=== PATIENT | male | born 1985 | race Caucasian/White ===

== ENCOUNTER 2017-02-13 22:28 | Inpatient (IN) | payer OTHER ==
[~2017-02-13] VITALS: Ht 185.4 cm; Wt 86.8 kg
[2017-02-13] MEDS ORDERED: SODIUM CHLORIDE 0.9% 1000ML 1,000 ML IV STA ×2 (22:41→23:04)
--- NOTE | 2017-02-13 22:48 | EMERGENCY ROOM VISIT NOTE ---
History Report prepared by Siomara: Maury Weiss Under the Supervision of: Dr. Alhaji Del Cid M.D. First contact with patient: 22:38 Chief Complaint: HYPERGLYCEMIA Stated Complaint: HYPERGYLCEMIA Nursing Triage Summary: pt arrives ALS from [facility]. pt with n/v all day today. did not eat. did not take insulin. BSG for [facility] 541. EMS BSG 444. pt medicated with 4mg IV Zofran by EMS. per eMar from [facility] pt is non compliant and refuses Insulin. History of Present Illness The patient is a 31 year old male who presents to the Emergency Room from senior living for evaluation of generalized weakness. Patient with history of DM, HTN , DLP. On insulin though reportedly by senior living he is non-compliant with taking it. Note DKA in Apr 2016 and admission to [facility]. Feeling well yesterday. Today with nausea, vomiting, body aches. Did not take medications today due to illness. Associated tachycardia, fatigue, weakness and diffuse abdominal cramping. Denies cp, sob, uti symptoms, leg swelling, rashes, headache, neck stiffness, vision changes. BSG by senior living >500. EMS transfer with NSS and Zofran prior to arrival. Patient notes nausea mildly better. Walking makes worse, rest makes better. Notes this is similar to previous DKA. Denies other medication use. Denies overdose. Denies attempt at harming self. Source of History: patient, other ([facility]) Onset: Today Position: other (global) Symptom Intensity: moderate Quality: other (Generalized Weakness) Timing: constant Modifying Factors (Worsening): movement Modifying Factors (Relieving): rest Associated Symptoms: + nausea, + vomiting, + abdominal pain, + fatigue, No headache, No neck pain, No chest pain, No SOB, No urinary symptoms, No rash Review of Systems See HPI for pertinent positives & negatives. A total of 10 systems reviewed and were otherwise negative. Past Medical & Surgical Medical Problems: (1) Diabetes (2) Dyslipidemia (3) HTN (hypertension) Family History Unable to obtain. Social History Smoking Status: Current Every Day Smoker Smokeless Tobacco Use: Unknown Housing Status: other (Incarcerated) Occupation Status: other (Incarcerated) Current/Historical Medications Scheduled Atorvastatin (Lipitor), 20 MG PO DAILY Duloxetine Hcl (Cymbalta), 20 MG PO DAILY Duloxetine Hcl (Cymbalta), 30 MG PO DAILY Insulin Human Regular (Humulin R), UNITS SQ AC Insulin Isophan/Regular (Humulin 70/30), 30 UNITS SQ QAM Insulin Isophan/Regular (Humulin 70/30), 20 UNITS SQ QPM Lisinopril (Prinivil), 10 MG PO DAILY [Glutose], 1-2 PO PRN Allergies Coded Allergies: Penicillins (Verified Allergy, Intermediate, childhood. unsure, 02/13/17) Physical Exam Vital Signs Date Time Temp Pulse Resp B/P (MAP) Pulse Ox O2 Delivery O2 Flow Rate FiO2 02/14/17 02:16 107 20 133/75 98 02/14/17 02:01 132/75 02/14/17 02:00 106 15 02/14/17 01:31 137/71 02/14/17 01:30 105 16 100 02/14/17 01:01 121/56 02/14/17 01:00 109 18 100 02/14/17 00:43 114 16 127/53 100 Room Air 02/14/17 00:05 100 20 116/50 96 Room Air 02/13/17 22:36 103 02/13/17 22:32 36.7 103 24 151/66 98 Room Air Physical Exam GENERAL: Patient is unwell appearing and in moderate distress. Dehydrated appearing. HEENT: No acute trauma, normocephalic atraumatic, mucous membranes DRY, no nasal congestion, no scleral icterus. NECK: No stridor, no adenopathy, no meningismus, trachea is midline. LUNGS: Tachypneic though not dyspneic. Clear to auscultation and equal bilaterally. No wheeze, no rhonchi. HEART: Tachycardic. No murmurs, rubs, gallops appreciated. ABDOMEN: Soft, nontender, bowel sounds positive, no masses appreciated, no peritonitis. BACK: No midline tenderness, no CVA tenderness EXTREMITIES: Normal motion all extremities, no cyanosis, no edema. NEUROLOGIC: Alert and oriented, no acute motor or sensory deficits, no focal weakness, cranial nerves grossly intact. SKIN: No rash, no jaundice, no diaphoresis. Medical Decision & Procedures ER Provider Diagnostic Interpretation: X ray results are stated below per my interpretation: Chest: 1 view: No infiltrate, no effusion, normal cardiac border. Laboratory Results 02/13/17 22:50 Red Blood Count 4.91, Mean Corpuscular Volume 89.2, Mean Corpuscular Hemoglobin 29.1, Mean Corpuscular Hemoglobin Concent 32.6, Mean Platelet Volume 10.9, Neutrophils (%) (Auto) 77.0, Lymphocytes (%) (Auto) 11.2, Monocytes (%) (Auto) 10.8, Eosinophils (%) (Auto) 0.3, Basophils (%) (Auto) 0.2, Neutrophils # (Auto ) 16.70, Lymphocytes # (Auto) 2.42, Monocytes # (Auto) 2.34, Eosinophils # (Auto ) 0.06, Basophils # (Auto) 0.04 02/13/17 22:50 Test 02/13/17 22:50 02/13/17 23:04 02/13/17 23:07 02/13/17 23:18 White Blood Count 21.66 K/uL (4.8-10.8) Red Blood Count 4.91 M/uL (4.7-6.1) Hemoglobin 14.3 g/dL (14.0-18.0) Hematocrit 43.8 % (42-52) Mean Corpuscular Volume 89.2 fL (80-100) Mean Corpuscular Hemoglobin 29.1 pg (25-34) Mean Corpuscular Hemoglobin Concent 32.6 g/dl (32-36) Platelet Count 275 K/uL (130-400) Mean Platelet Volume 10.9 fL (7.4-10.4) Neutrophils (%) (Auto) 77.0 % Lymphocytes (%) (Auto) 11.2 % Monocytes (%) (Auto) 10.8 % Eosinophils (%) (Auto) 0.3 % Basophils (%) (Auto) 0.2 % Neutrophils # (Auto) 16.70 K/uL (1.4-6.5) Lymphocytes # (Auto) 2.42 K/uL (1.2-3.4) Monocytes # (Auto) 2.34 K/uL (0.11-0.59) Eosinophils # (Auto) 0.06 K/uL (0-0.5) Basophils # (Auto) 0.04 K/uL (0-0.2) RDW Standard Deviation 43.7 fL (36.4-46.3) RDW Coefficient of Variation 13.5 % (11.5-14.5) Immature Granulocyte % (Auto) 0.5 % Immature Granulocyte # (Auto) 0.10 K/uL (0.00-0.02) Toxic Vacuolation 1+ Echinocytes 1+ Prothrombin Time 10.3 SECONDS (9.0-12.0) Prothromb Time International Ratio 1.0 (0.9-1.1) Activated Partial Thromboplast Time 22.9 SECONDS (21.0-31.0) Partial Thromboplastin Ratio 0.9 Est Creatinine Clear Calc Drug Dose 71.8 ml/min Estimated GFR () 61.4 Estimated GFR (Non- 52.9 BUN/Creatinine Ratio 14.6 (10-20) Calcium Level 9.6 mg/dl (8.5-10.1) Phosphorus Level 5.4 mg/dl (2.5-4.9) Magnesium Level 2.0 mg/dl (1.8-2.4) Total Bilirubin 2.4 mg/dl (0.2-1) Direct Bilirubin 0.6 mg/dl (0-0.2) Aspartate Amino Transf (AST/SGOT) 48 U/L (15-37) Alanine Aminotransferase (ALT/SGPT) 123 U/L (12-78) Alkaline Phosphatase 99 U/L (45-117) Total Creatine Kinase 173 U/L (39-308) Creatine Kinase MB 3.8 ng/ml (0.5-3.6) Creatine Kinase MB Ratio 2.2 (0-3.0) Troponin I < 0.015 ng/ml (0-0.045) Total Protein 8.0 gm/dl (6.4-8.2) Albumin 4.5 gm/dl (3.4-5.0) Lipase 205 U/L (73-393) Beta-Hydroxybutyric Acid 63.02 mg/dL (0.2-2.81) Bedside Lactic Acid Venous 8.91 mmol/L (0.90-1.70) Bedside Hemoglobin 15.6 g/dl (14.0-18.0) Bedside Hematocrit 46 % (42-52) Bedside Sodium 135 mEq/L (135-144) Bedside Potassium 4.8 mEq/L (3.3-5.0) Bedside Chloride 97 mEq/L (101-112) Bedside Total CO2 15 mEq/l (24-31) Anion Gap 28.0 mmol/L (16-25) Bedside Blood Urea Nitrogen 25 mg/dl (7-18) Bedside Creatinine 1.0 mg/dl (0.6-1.3) Bedside Glucose (other) 539 mg/dl (70-99) Bedside Ionized Calcium (Jose) 1.16 mmol/l (1.12-1.32) Arterial Blood pH 7.27 (7.35-7.45) Arterial Blood Partial Pressure CO2 26 mmHg (35-46) Arterial Blood Partial Pressure O2 74 mm/Hg (80-95) Arterial Blood HCO3 12 mmol/L (19-24) Arterial Blood Oxygen Saturation 93.8 % (90-95) Arterial Blood Base Excess -13.3 mEq/L (-9-1.8) Arterial Blood Gas Delivery RA Liborio Test POS (POS) Test 02/14/17 02:03 02/14/17 02:20 Bedside Glucose 485 mg/dl (70-99) Urine Color YELLOW Urine Appearance CLEAR (CLEAR) Urine pH 5.0 (4.5-7.5) Urine Specific [place] 1.029 (1.000-1.030) Urine Protein TRACE (NEG) Urine Glucose (UA) 3+ (NEG) Urine Ketones 3+ (NEG) Urine Occult Blood TRACE (NEG) Urine Nitrite NEG (NEG) Urine Bilirubin NEG (NEG) Urine Urobilinogen NEG (NEG) Urine Leukocyte Esterase NEG (NEG) Urine WBC (Auto) 1-5 /hpf (0-5) Urine RBC (Auto) 0-4 /hpf (0-4) Urine Hyaline Casts (Auto) 1-5 /lpf (0-5) Urine Epithelial Cells (Auto) 5-10 /lpf (0-5) Urine Bacteria (Auto) NEG (NEG) Laboratory results as reviewed by me. Medications Administered Medications (Trade) Dose Ordered Sig/Madai Route Start Time Stop Time Status Last Admin Dose Admin Sodium Chloride 1,000 ml @ 999 mls/hr Q1H1M STAT IV 02/13/17 22:41 02/13/17 23:41 DC 02/13/17 23:02 999 MLS/HR Ondansetron HCl (Zofran Inj) 4 mg NOW STAT IV 02/13/17 22:58 02/13/17 22:59 DC 02/13/17 23:02 4 MG Sodium Chloride 1,000 ml @ 999 mls/hr Q1H1M STAT IV 02/13/17 23:04 02/14/17 00:04 DC 02/14/17 00:03 999 MLS/HR Morphine Sulfate (MoRPHine SULFATE INJ) 4 mg NOW STAT IV 02/13/17 23:25 02/13/17 23:26 DC 02/13/17 23:58 4 MG Insulin Human Regular 2 unit/ Syringe 2 ml @ 1 mls/min TODAY@0000 IV 02/14/17 00:00 02/14/17 00:01 DC 02/13/17 23:59 1 MLS/MIN Insulin Human Regular 250 units/ Sodium Chloride 252.5 ml @ 0 mls/hr DAILY@1130 IV 02/13/17 00:00 02/14/17 11:29 02/14/17 02:09 3.5 MLS/HR Promethazine HCl 25 mg/Sodium Chloride 51 ml @ 204 mls/hr NOW STAT IV 02/14/17 00:03 02/14/17 00:17 DC 02/14/17 00:21 204 MLS/HR Sodium Chloride 1,000 ml @ 200 mls/hr Q5H STAT IV 02/14/17 01:26 02/14/17 06:25 02/14/17 01:29 200 MLS/HR Sodium Chloride 1,000 ml @ 999 mls/hr Q1H1M STAT IV 02/14/17 01:39 02/14/17 01:52 DC 02/14/17 01:44 999 MLS/HR ECG Indication: other (Hyperglycemia) Rate (beats per minute): 105 Rhythm: sinus tachycardia Findings: no acute ischemic change, no ectopy, other (QTC of 457) ED Course 2238: The patient was evaluated in room C4. A complete history and physical exam was performed. 2241: Ordered Sodium Chloride 1000 ml @ 999 mls/hr IV 2258: Ordered Zofran Inj 4 mg IV 2304: Ordered Sodium Chloride 1000 ml @ 999 mls/hr IV 2321: Upon reevaluation, the patient is experiencing whole body pain. I will order him something for the pain. I discussed with the nursing staff his need for an insulin drip and fluids. Discussed results and treatment plan with the patient. He verbalized understanding and agreement with the treatment plan. The patient will be evaluated for further management by Dr. Jermaine DELONG. Ordered Insulin Human Regular 1 ea. 2325: Ordered Morphine Sulfate 4 mg IV 0003: The patient is still nauseated. He has been given Phenergan. His insulin drip has started. Medical Decision Differential: DKA, Sepsis, Infectious (UTI/Pneumonia/Meningitis/etc), Metabolic/ Electrolyte Abnormality, Cardiac, Hepatic, Endocrine, Toxicologic, Neurologic, amongst other pathologies entertained. Medication Reconciliation: I attest that I have personally reviewed the patient 's current medication list. Blood pressure screening: Patient was found to have an elevated blood pressure and was referred to their primary doctor for recheck and further treatment. 31 yr old non-compliant male arrives for evaluation of elevated blood sugar. Quite dehydrated by examination and consistent with DKA. Moderate acidosis. WBC elevated consistent with DKA. Blood cultures obtained but I do not feel this is sepsis and thus will hold off on abx at this time. Zofran, Phenergan, Morphine for nausea/discomfort. Fluids with insulin gtt started. Patient stable with just mild tachy. Consults Time Called: 2314 Consulting Physician: Dr. Jermaine DELONG Returned Call: 2320 He will be evaluating the patient for further management and care. Impression Primary Impression: DKA (diabetic ketoacidoses) Additional Impressions: Intractable vomiting Dehydration Scribe Attestation The scribe's documentation has been prepared under my direction and personally reviewed by me in its entirety. I confirm that the note above accurately reflects all work, treatment, procedures, and medical decision making performed by me. Departure Information Dispostion Being Evaluated By Hospitalist Patient Instructions My [facility] Problem Qualifiers
[2017-02-13] MEDS ORDERED: ONDANSETRON INJ 2 MG/ML 2 ML VIAL IV STA (22:58)
[2017-02-13 23:03] LABS: HEMATOCRIT 43.8 % (42-52); MEAN CELL VOLUME 89.2 fL (80-100); MEAN CORPUSCULAR HEMOGLOBIN 29.1 pg (25-34); MEAN CORPUSCULAR HGB CONC 32.6 g/dl (32-36); MEAN PLATELET VOLUME 10.9 fL (7.4-10.4); PLATELET COUNT 275 K/uL (130-400); RED BLOOD COUNT 4.91 M/uL (4.7-6.1); WHITE BLOOD COUNT 21.66 K/uL (4.8-10.8)
[2017-02-13 23:18] LABS: ISTAT HEMOGLOBIN 15.6 g/dl (14.0-18.0); ISTAT IONIZED CALCIUM 1.16 mmol/l (1.12-1.32)
[2017-02-13] MEDS ORDERED: INSULIN IV INFUSION PROTOCOL STA (23:21)
[2017-02-13] MEDS ORDERED: MoRPHine SULFATE 4 MG/ML 1 ML CARP\\VIAL IV STA (23:25)
[2017-02-13 23:27] LABS: PARTIAL THROMBOPLASTIN RATIO 0.9; PROTHROMBIN TIME (PATIENT) 10.3 SECONDS (9.0-12.0)
[2017-02-13] MEDS ORDERED: DKA GOAL RANGE 150-250 mg/dl 1 EA ONE (23:30)
[2017-02-13] MEDS ORDERED: MODERATE STRESS LEVEL ONE (23:30)
[2017-02-13 23:31] LABS: ARTERIAL BLD GAS O2 SATURATION 93.8 % (90-95); ARTERIAL BLOOD GAS BASE EXCESS -13.3 mEq/L (-9-1.8); ARTERIAL BLOOD GAS HCO3 12 mmol/L (19-24); ARTERIAL BLOOD GAS PO2 74 mm/Hg (80-95); ARTERIAL BLOOD GAS pH 7.27 (7.35-7.45)
[2017-02-13 23:33] LABS: ALKALINE PHOSPHATASE 99 U/L (45-117); ALT/SGPT 123 U/L (12-78); AST/SGOT 48 U/L (15-37); BLOOD UREA NITROGEN 25 mg/dl (7-18); BUN/CREATININE RATIO 14.6 (10-20); CALCIUM 9.6 mg/dl (8.5-10.1); CARBON DIOXIDE 14 mmol/L (21-32); CHLORIDE 95 mmol/L (98-107); CKMB/CK RATIO 2.2 (0-3.0); GLUCOSE 508 mg/dl (70-99); PHOSPHORUS 5.4 mg/dl (2.5-4.9); POTASSIUM 4.9 mmol/L (3.5-5.1); SODIUM 134 mmol/L (136-145)
[2017-02-13 23:39] LABS: BASO % 0.2 %; BASO ABS # 0.04 K/uL (0-0.2); COMPLETE YES; ECHINOCYTES 1+; EOS % 0.3 %; IG% 0.5 %; LYMPH % 11.2 %; LYMPH ABS # 2.42 K/uL (1.2-3.4); MONO % 10.8 %; VACUOLIZATION 1+
[2017-02-13] MEDS ORDERED: ATOR-22 PO (23:41)
[2017-02-13] MEDS ORDERED: DULO-24 PO (23:43)
[2017-02-13] MEDS ORDERED: GLUCOSE 40% GEL 15 GM TUBE PO PRN (23:45)
[2017-02-13] MEDS ORDERED: DEXTROSE 50% 50 ML SYR IV PRN (23:45)
[2017-02-13] MEDS ORDERED: GLUCOSE 10 TABS/TUBE PO PRN (23:45)
[2017-02-13] MEDS ORDERED: GLUCAGON FOR INJ 1 MG VIAL SQ PRN (23:45)
[2017-02-13] MEDS ORDERED: CYM/30 PO (23:47)
[2017-02-13] MEDS ORDERED: GLUTOSE PO (23:49)
[2017-02-13] MEDS ORDERED: LISI10TA PO (23:54)
[2017-02-13] MEDS ORDERED: INSU1INJ SQ ×2 (23:55→23:57)
[2017-02-13 23:57] LABS: ALLEN TEST POS (POS); O2 ADMINISTRATION RA
[2017-02-13 23:58] LABS: BETA-HYDROXYBUTYRATE 63.02 mg/dL (0.2-2.81)
[2017-02-14] MEDS ORDERED: INSHRIE SQ
[2017-02-14] MEDS ORDERED: INSULIN HUMAN REGULAR IV BOLUS 2 UNIT in SYRINGE 0 ML IV SCH
[2017-02-14] MEDS ORDERED: HYDROCODONE/HOMATROPINE SYRUP 5MG/1.5MG 5ML UDP PO STA (00:02)
[2017-02-14] MEDS ORDERED: PROMETHAZINE HCL INJ 25 MG in SODIUM CHLORIDE 0.9% 50ML 50 ML IV STA (00:03)
--- NOTE | 2017-02-14 00:24 | Critical Care Consultation ---
Critical Care Consultation Date of Consultation: Feb 14, 2017. Attending Physician: Reason for Consultation: Entered in ERROR Social History Smoking Status: Current Every Day Smoker Smokeless Tobacco Use: Unknown Housing Status: other (Incarcerated) Occupation Status: other (Incarcerated) Allergies Coded Allergies: Penicillins (Verified Allergy, Intermediate, childhood. unsure, 02/13/17) Home Medications Scheduled Atorvastatin (Lipitor), 20 MG PO DAILY Duloxetine Hcl (Cymbalta), 20 MG PO DAILY Duloxetine Hcl (Cymbalta), 30 MG PO DAILY Insulin Human Regular (Humulin R), UNITS SQ AC Insulin Isophan/Regular (Humulin 70/30), 30 UNITS SQ QAM Insulin Isophan/Regular (Humulin 70/30), 20 UNITS SQ QPM Lisinopril (Prinivil), 10 MG PO DAILY [Glutose], 1-2 PO PRN Current Inpatient Medications Current Inpatient Medications Medications (Trade) Dose Ordered Sig/Madai Route Start Time Stop Time Status Last Admin Dose Admin Insulin Human Regular 250 units/ Sodium Chloride 252.5 ml @ 0 mls/hr DAILY@1130 IV 02/13/17 00:00 02/14/17 11:29 02/14/17 00:00 2.1 MLS/HR Insulin Aspart (novoLOG ASPART) [facility] 02/14/17 09:00 03/16/17 08:59 Glucose (Glucose 40% Gel) UD PRN PO 02/13/17 23:45 03/15/17 23:44 Glucose (Glucose Chew Tab) 1 tabs UD PRN PO 02/13/17 23:45 03/15/17 23:44 Dextrose (Dextrose 50% 50ML Syringe) 50 ml UD PRN IV 02/13/17 23:45 03/15/17 23:44 Glucagon (Glucagon Inj) 1 mg UD PRN SQ 02/13/17 23:45 03/15/17 23:44 Physical Exam Date Time Temp Pulse Resp B/P (MAP) Pulse Ox O2 Delivery O2 Flow Rate FiO2 02/14/17 00:05 100 20 116/50 96 Room Air 02/13/17 22:36 103 02/13/17 22:32 36.7 103 24 151/66 98 Room Air Laboratory Results Last 24 Hours Test 02/13/17 22:50 02/13/17 23:04 02/13/17 23:07 02/13/17 23:18 White Blood Count 21.66 K/uL Red Blood Count 4.91 M/uL Hemoglobin 14.3 g/dL Hematocrit 43.8 % Mean Corpuscular Volume 89.2 fL Mean Corpuscular Hemoglobin 29.1 pg Mean Corpuscular Hemoglobin Concent 32.6 g/dl Platelet Count 275 K/uL Mean Platelet Volume 10.9 fL Neutrophils (%) (Auto) 77.0 % Lymphocytes (%) (Auto) 11.2 % Monocytes (%) (Auto) 10.8 % Eosinophils (%) (Auto) 0.3 % Basophils (%) (Auto) 0.2 % Neutrophils # (Auto) 16.70 K/uL Lymphocytes # (Auto) 2.42 K/uL Monocytes # (Auto) 2.34 K/uL Eosinophils # (Auto) 0.06 K/uL Basophils # (Auto) 0.04 K/uL RDW Standard Deviation 43.7 fL RDW Coefficient of Variation 13.5 % Immature Granulocyte % (Auto) 0.5 % Immature Granulocyte # (Auto) 0.10 K/uL Toxic Vacuolation 1+ Echinocytes 1+ Prothrombin Time 10.3 SECONDS Prothromb Time International Ratio 1.0 Activated Partial Thromboplast Time 22.9 SECONDS Partial Thromboplastin Ratio 0.9 Sodium Level 134 mmol/L Potassium Level 4.9 mmol/L Chloride Level 95 mmol/L Carbon Dioxide Level 14 mmol/L Anion Gap 25.0 mmol/L 28.0 mmol/L Blood Urea Nitrogen 25 mg/dl Creatinine 1.70 mg/dl Est Creatinine Clear Calc Drug Dose 71.8 ml/min Estimated GFR () 61.4 Estimated GFR (Non- 52.9 BUN/Creatinine Ratio 14.6 Random Glucose 508 mg/dl Calcium Level 9.6 mg/dl Phosphorus Level 5.4 mg/dl Magnesium Level 2.0 mg/dl Total Bilirubin 2.4 mg/dl Direct Bilirubin 0.6 mg/dl Aspartate Amino Transf (AST/SGOT) 48 U/L Alanine Aminotransferase (ALT/SGPT) 123 U/L Alkaline Phosphatase 99 U/L Total Creatine Kinase 173 U/L Creatine Kinase MB 3.8 ng/ml Creatine Kinase MB Ratio 2.2 Troponin I < 0.015 ng/ml Total Protein 8.0 gm/dl Albumin 4.5 gm/dl Lipase 205 U/L Beta-Hydroxybutyric Acid 63.02 mg/dL Bedside Lactic Acid Venous 8.91 mmol/L Bedside Hemoglobin 15.6 g/dl Bedside Hematocrit 46 % Bedside Sodium 135 mEq/L Bedside Potassium 4.8 mEq/L Bedside Chloride 97 mEq/L Bedside Total CO2 15 mEq/l Bedside Blood Urea Nitrogen 25 mg/dl Bedside Creatinine 1.0 mg/dl Bedside Glucose (other) 539 mg/dl Bedside Ionized Calcium (Jose) 1.16 mmol/l Arterial Blood pH 7.27 Arterial Blood Partial Pressure CO2 26 mmHg Arterial Blood Partial Pressure O2 74 mm/Hg Arterial Blood HCO3 12 mmol/L Arterial Blood Oxygen Saturation 93.8 % Arterial Blood Base Excess -13.3 mEq/L Arterial Blood Gas Delivery RA Liborio Test POS
[2017-02-14] MEDS: INSULIN REGULAR 250 UNITS in SODIUM CHLORIDE 0.9% 250ML 250 ML IV SCH ×4 (01:08→02:09)
[2017-02-14] MEDS ORDERED: SODIUM CHLORIDE 0.9% 1000ML 1,000 ML IV STA ×2 (01:26→01:39)
[2017-02-14] MEDS ORDERED: INSULIN IV INFUSION PROTOCOL STA (01:49)
[2017-02-14] MEDS ORDERED: ONDANSETRON INJ 2 MG/ML 2 ML VIAL IV PRN (02:00)
[2017-02-14] MEDS ORDERED: DC ALL PREVIOUSLY ORDERED DIABETES MEDS ONE (02:00)
[2017-02-14] MEDS ORDERED: DKA GOAL RANGE 150-250 mg/dl 1 EA ONE (02:00)
[2017-02-14] MEDS ORDERED: MAGNESIUM HYDROXIDE SUSP 30 ML UDC PO PRN (02:00)
[2017-02-14] MEDS ORDERED: ACETAMINOPHEN 325 MG TAB PO PRN (02:00)
[2017-02-14] MEDS ORDERED: PHARMACY GLYCEMIC MGMT CONSULT PRN (02:00)
[2017-02-14] MEDS ORDERED: POLYETHYLENE (MIRALAX) 17 GM PACK PO PRN (02:00)
[2017-02-14] MEDS ORDERED: ALUMINUM/MAGNESIUM/SIMETH (MAALOX MAX) 30 ML UDC PO PRN (02:00)
[2017-02-14] MEDS ORDERED: ZOLPIDEM TARTRATE 5 MG TAB PO PRN (02:00)
[2017-02-14 02:25] VITALS: BP 128/70; PULSE 109; TEMP 36.7; O2SAT 98; Ht 185.4 cm; Wt 86.8 kg
[2017-02-14 02:29] LABS: URINE APPEARANCE CLEAR (CLEAR); URINE BILIRUBIN NEG (NEG); URINE COLOR YELLOW; URINE NITRITE NEG (NEG); URINE SPECIFIC GRAVITY 1.029 (1.000-1.030); UROBILINOGEN NEG (NEG); ZZUR CULT IF INDIC CLEAN CATCH NO
[2017-02-14 02:30] LABS: MANUAL MICROSCOPIC REQUIRED? NO; REVIEW REQ? NO
[2017-02-14] MEDS ORDERED: SODIUM CHLORIDE 0.9% 1000ML 1,000 ML IV SCH (03:00)
[2017-02-14] MEDS ORDERED: KETOROLAC TROMETHAMINE 30 MG/ML VIAL IV PRN (03:00)
--- NOTE | 2017-02-14 03:09 | History and Physical ---
History & Physical Date & Time of Service: Feb 14, 2017 at 02:58 Chief Complaint: DKA Primary Care Physician: Praveena RUIZ History of Present Illness Source: patient 31 y/o M Hx DM1, HTN, HPL - presents from a local [facility] with abdominal pain, nausea and vomiting. Initial labs are consistent with mild DKA and ASHLEY. Pt also complains of muscle aches/pains and cramping. Denies CP, SOB, fevers. He does state that at one point he thought his vomit had a red tint but was unsure if this was blood. As an aside, the pt states that he feels a lump on his R neck and had mentioned this to the care home MD as his mother had a history of thyroid CA. He has not yet been worked up and finds this to be stressful. Past Medical/Surgical History Medical Problems: (1) Diabetes Status: Chronic (2) Dyslipidemia Status: Chronic (3) HTN (hypertension) Status: Chronic Family History Father had an UT at age 36 - mother has a history of thyroid CA. Social History Smoking Status: Current Every Day Smoker Smokeless Tobacco Use: Unknown Occupational Status: other (Incarcerated) Allergies Coded Allergies: Penicillins (Verified Allergy, Intermediate, childhood. unsure, 02/13/17) Home Medications Scheduled Atorvastatin (Lipitor), 20 MG PO DAILY Duloxetine Hcl (Cymbalta), 20 MG PO DAILY Duloxetine Hcl (Cymbalta), 30 MG PO DAILY Insulin Human Regular (Humulin R), UNITS SQ AC Insulin Isophan/Regular (Humulin 70/30), 30 UNITS SQ QAM Insulin Isophan/Regular (Humulin 70/30), 20 UNITS SQ QPM Lisinopril (Prinivil), 10 MG PO DAILY [Glutose], 1-2 PO PRN Review of Systems Constitutional: No fever, No chills, No sweats Eyes: No worsening of vision ENT: No hearing loss, No unusual epistaxis, No nasal symptoms Respiratory: No cough Cardiovascular: No chest pain, No orthopnea, No PND Abdomen: + pain, + nausea, + vomiting Musculoskeletal: No joint pain Genitourinary - Male: No hematuria Neurologic: No memory loss, No paralysis, No weakness Psychiatric: No depression symptoms Endocrine: No fatigue Hematologic / Lymphatic: No abnormal bleeding/bruising Integumentary: No rash Allergic / Immunologic: No environmental allergies Physical Exam Vital Signs Date Time Temp Pulse Resp B/P (MAP) Pulse Ox O2 Delivery O2 Flow Rate FiO2 02/14/17 02:16 107 20 133/75 98 02/14/17 02:01 132/75 02/14/17 02:00 106 15 02/14/17 01:31 137/71 02/14/17 01:30 105 16 100 02/14/17 01:01 121/56 02/14/17 01:00 109 18 100 02/14/17 00:43 114 16 127/53 100 Room Air 02/14/17 00:05 100 20 116/50 96 Room Air 02/13/17 22:36 103 02/13/17 22:32 36.7 103 24 151/66 98 Room Air General Appearance: WD/WN, no apparent distress Head: normocephalic Eyes: normal inspection, EOMI ENT: normal ENT inspection, pharynx normal, + pertinent finding (May have a small lump on his R neck close to mandibular angle ) Neck: supple, no JVD Respiratory/Chest: chest non-tender, lungs clear, normal breath sounds Cardiovascular: regular rate, rhythm, no edema, no gallop, no JVD, no murmur, normal peripheral pulses Abdomen/GI: normal bowel sounds, non tender, soft Back: normal inspection, no CVA tenderness, no muscle spasm, normal range of motion Extremities/Musculoskelatal: normal inspection, no calf tenderness, normal capillary refill 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, no motor/sensory deficits, alert Skin: normal color, warm/dry, no rash Diagnostics Laboratory Results Results Past 24 Hours Test 02/13/17 22:50 02/13/17 23:04 02/13/17 23:07 02/13/17 23:18 Range/Units White Blood Count 21.66 4.8-10.8 K/uL Red Blood Count 4.91 4.7-6.1 M/uL Hemoglobin 14.3 14.0-18.0 g/dL Hematocrit 43.8 42-52 % Mean Corpuscular Volume 89.2 80-100 fL Mean Corpuscular Hemoglobin 29.1 25-34 pg Mean Corpuscular Hemoglobin Concent 32.6 32-36 g/dl Platelet Count 275 130-400 K/uL Mean Platelet Volume 10.9 7.4-10.4 fL Neutrophils (%) (Auto) 77.0 % Lymphocytes (%) (Auto) 11.2 % Monocytes (%) (Auto) 10.8 % Eosinophils (%) (Auto) 0.3 % Basophils (%) (Auto) 0.2 % Neutrophils # (Auto) 16.70 1.4-6.5 K/uL Lymphocytes # (Auto) 2.42 1.2-3.4 K/uL Monocytes # (Auto) 2.34 0.11-0.59 K/uL Eosinophils # (Auto) 0.06 0-0.5 K/uL Basophils # (Auto) 0.04 0-0.2 K/uL RDW Standard Deviation 43.7 36.4-46.3 fL RDW Coefficient of Variation 13.5 11.5-14.5 % Immature Granulocyte % (Auto) 0.5 % Immature Granulocyte # (Auto) 0.10 0.00-0.02 K/uL Toxic Vacuolation 1+ Echinocytes 1+ Prothrombin Time 10.3 9.0-12.0 SECONDS Prothromb Time International Ratio 1.0 0.9-1.1 Activated Partial Thromboplast Time 22.9 21.0-31.0 SECONDS Partial Thromboplastin Ratio 0.9 Sodium Level 134 136-145 mmol/L Potassium Level 4.9 3.5-5.1 mmol/L Chloride Level 95 98-107 mmol/L Carbon Dioxide Level 14 21-32 mmol/L Anion Gap 25.0 28.0 16-25 mmol/L Blood Urea Nitrogen 25 7-18 mg/dl Creatinine 1.70 0.60-1.40 mg/dl Est Creatinine Clear Calc Drug Dose 71.8 ml/min Estimated GFR () 61.4 Estimated GFR (Non- 52.9 BUN/Creatinine Ratio 14.6 10-20 Random Glucose 508 70-99 mg/dl Calcium Level 9.6 8.5-10.1 mg/dl Phosphorus Level 5.4 2.5-4.9 mg/dl Magnesium Level 2.0 1.8-2.4 mg/dl Total Bilirubin 2.4 0.2-1 mg/dl Direct Bilirubin 0.6 0-0.2 mg/dl Aspartate Amino Transf (AST/SGOT) 48 15-37 U/L Alanine Aminotransferase (ALT/SGPT) 123 12-78 U/L Alkaline Phosphatase 99 45-117 U/L Total Creatine Kinase 173 39-308 U/L Creatine Kinase MB 3.8 0.5-3.6 ng/ml Creatine Kinase MB Ratio 2.2 0-3.0 Troponin I < 0.015 0-0.045 ng/ml Total Protein 8.0 6.4-8.2 gm/dl Albumin 4.5 3.4-5.0 gm/dl Lipase 205 73-393 U/L Beta-Hydroxybutyric Acid 63.02 0.2-2.81 mg/dL Bedside Lactic Acid Venous 8.91 0.90-1.70 mmol/L Bedside Hemoglobin 15.6 14.0-18.0 g/dl Bedside Hematocrit 46 42-52 % Bedside Sodium 135 135-144 mEq/L Bedside Potassium 4.8 3.3-5.0 mEq/L Bedside Chloride 97 101-112 mEq/L Bedside Total CO2 15 24-31 mEq/l Bedside Blood Urea Nitrogen 25 7-18 mg/dl Bedside Creatinine 1.0 0.6-1.3 mg/dl Bedside Glucose (other) 539 70-99 mg/dl Bedside Ionized Calcium (Jose) 1.16 1.12-1.32 mmol/l Arterial Blood pH 7.27 7.35-7.45 Arterial Blood Partial Pressure CO2 26 35-46 mmHg Arterial Blood Partial Pressure O2 74 80-95 mm/Hg Arterial Blood HCO3 12 19-24 mmol/L Arterial Blood Oxygen Saturation 93.8 90-95 % Arterial Blood Base Excess -13.3 -9-1.8 mEq/L Arterial Blood Gas Delivery RA Liborio Test POS POS Test 02/14/17 01:02 02/14/17 02:03 02/14/17 02:20 Range/Units Bedside Glucose 469 485 70-99 mg/dl Urine Color YELLOW Urine Appearance CLEAR CLEAR Urine pH 5.0 4.5-7.5 Urine Specific [place] 1.029 1.000-1.030 Urine Protein TRACE NEG Urine Glucose (UA) 3+ NEG Urine Ketones 3+ NEG Urine Occult Blood TRACE NEG Urine Nitrite NEG NEG Urine Bilirubin NEG NEG Urine Urobilinogen NEG NEG Urine Leukocyte Esterase NEG NEG Urine WBC (Auto) 1-5 0-5 /hpf Urine RBC (Auto) 0-4 0-4 /hpf Urine Hyaline Casts (Auto) 1-5 0-5 /lpf Urine Epithelial Cells (Auto) 5-10 0-5 /lpf Urine Bacteria (Auto) NEG NEG Microbiology Results 02/13/17 Blood Culture, Received Pending 02/13/17 Blood Culture, Received Pending Impression Assessment and Plan 31 y/o M Hx DM1, HTN, HPL - presents from a local [facility] with abdominal pain, nausea and vomiting. Initial labs are consistent with mild DKA and ASHLEY. Pt also complains of muscle aches/pains and cramping. Denies CP, SOB, fevers. He does state that at one point he thought his vomit had a red tint but was unsure if this was blood. As an aside, the pt states that he feels a lump on his R neck and had mentioned this to the care home MD as his mother had a history of thyroid CA. He has not yet been worked up and finds this to be stressful. 1) DKA - admitted with DKA protocol - Insulin drip, IVF, electrolytes Q4H - Antiemetics and analgesics PRN 2) ASHLEY - likely prerenal - aggressive IVF - recheck BMP AM 3) HTN - cont Lisinopril 4) HPL - cont Statin Tx 5) Neck lump - would defer to outpt workup Full code - SCDs - he may have had hematemesis earlier though this is not clear - we would administer heparin if his stay is extended and vomiting has resolved Total time for this admit including review of labs, meds, records - discussion with pt and ER attending - 38 min Level of Care Telemetry Resuscitation Status FULL RESUSCITATION VTE Prophylaxis VTE Risk Assessment Done? Y/N: Yes Risk Level: Very Low Given or contraindicated: Unfractionated heparin SQ
[2017-02-14] MEDS: MoRPHine SULFATE 2 MG/ML CARP IV PRN ×5 (03:25→22:20)
[2017-02-14] MEDS ORDERED: GLUCOSE 40% GEL 15 GM TUBE PO PRN (03:45)
[2017-02-14] MEDS ORDERED: GLUCOSE 10 TABS/TUBE PO PRN (03:45)
[2017-02-14] MEDS ORDERED: DEXTROSE 50% 50 ML SYR IV PRN (03:45)
[2017-02-14] MEDS ORDERED: GLUCAGON FOR INJ 1 MG VIAL SQ PRN (03:45)
[2017-02-14 04:00] VITALS: PULSE 99; O2SAT 98
[2017-02-14] MEDS ORDERED: PENDING NSS+20mEq KCL IVF SCH (04:00)
[2017-02-14] MEDS ORDERED: PENDING D5NS+20mEq KCL IVF SCH (04:00)
[2017-02-14 04:27] LABS: BUN/CREATININE RATIO 15.8 (10-20); CALCIUM 8.5 mg/dl (8.5-10.1); CREATININE 1.4 mg/dl (0.60-1.40); POTASSIUM 3.9 mmol/L (3.5-5.1)
[2017-02-14 04:57] LABS: BETA-HYDROXYBUTYRATE 48.23 mg/dL (0.2-2.81)
[2017-02-14] MEDS ORDERED: NURSING VERBAL MED ORDER ONE ×3 (06:00→17:00)
[2017-02-14] MEDS: HEPARIN SOD 5000 UNIT/0.5 ML CARP SQ SCH ×3 (06:05→20:42)
[2017-02-14] MEDS: D5NSS + 20MEQ KCL 1,000 ML IV SCH ×2 (06:33→11:30)
--- NOTE | 2017-02-14 06:37 | DIAGNOSTIC IMAGING REPORT ---
CHEST ONE VIEW PORTABLE CLINICAL HISTORY: Generalized Weakness COMPARISON STUDY: No previous studies for comparison. FINDINGS: The cardiac and mediastinal contours are normal. There is no evidence of focal pulmonary consolidation. There is no evidence of failure. No pleural effusions are visualized.[ IMPRESSION: No active disease in the chest. Electronically signed by: Melvin Maza M.D. 02/14/2017 6:35 AM Dictated Date/Time: 02/14/2017 6:35 AM
[2017-02-14] MEDS: INSULIN ASPART 100 UNITS/ML 3 ML PEN SC SCH ×4 (08:00→20:42)
[2017-02-14] MEDS: DULOXETINE HCL 20 MG CAP PO SCH (08:16)
[2017-02-14] MEDS: DULOXETINE (CYMBALTA) 30 MG CAP PO SCH (08:16)
[2017-02-14] MEDS: LISINOPRIL 10 MG TAB PO SCH (08:16)
[2017-02-14 08:20] VITALS: BP 110/57; PULSE 103; TEMP 36.8; O2SAT 97
[2017-02-14] MEDS ORDERED: ATORVASTATIN 20 MG TAB PO SCH (09:00)
[2017-02-14] MEDS ORDERED: INSULIN ASPART 100 UNITS/ML 3 ML PEN SC SCH (09:00)
[2017-02-14 09:47] LABS: ALKALINE PHOSPHATASE 62 U/L (45-117); ALT/SGPT 84 U/L (12-78); BLOOD UREA NITROGEN 20 mg/dl (7-18); BUN/CREATININE RATIO 15.2 (10-20); CARBON DIOXIDE 20 mmol/L (21-32); CHLORIDE 108 mmol/L (98-107); GLUCOSE 305 mg/dl (70-99); SODIUM 138 mmol/L (136-145); THYROID STIMULATING HORMONE 0.379 uIu/ml (0.300-4.500)
[2017-02-14 10:01] LABS: BETA-HYDROXYBUTYRATE 13.09 mg/dL (0.2-2.81)
[2017-02-14 10:52] LABS: ESTIMATED AVERAGE GLUCOSE 272 mg/dl; HA1C FLAG Normal (Normal)
[2017-02-14 11:26] LABS: MAGNESIUM 1.7 mg/dl (1.8-2.4); POTASSIUM 4.3 mmol/L (3.5-5.1)
[2017-02-14] MEDS ORDERED: INSULIN REGULAR 250 UNITS in SODIUM CHLORIDE 0.9% 250ML 250 ML IV SCH (11:30)
[2017-02-14 11:37] VITALS: BP 115/58; PULSE 96; TEMP 36.7; O2SAT 99
--- NOTE | 2017-02-14 11:52 | DIAGNOSTIC IMAGING REPORT ---
BILIARY ULTRASOUND CLINICAL HISTORY: Right upper quadrant abdominal pain COMPARISON STUDY: No previous studies for comparison. FINDINGS: The pancreas was suboptimally visualized. No focal hepatic masses are visualized. There is no right-sided hydronephrosis. No gallstones are visualized. There is no gallbladder wall thickening. There is no pericholecystic fluid. There is no ductal dilatation. The common buttock measures 5 mm. IMPRESSION: Ultrasonographically normal gallbladder. No evidence of ductal dilatation. Electronically signed by: Melvin Maza M.D. 02/14/2017 11:51 AM Dictated Date/Time: 02/14/2017 11:50 AM
[2017-02-14] MEDS: MAGNESIUM SULFATE 1GM / D5W 1 GM in PREMIXED IN D5W 100 ML IV SCH ×2 (12:49→13:40)
[2017-02-14] MEDS: NSS + 20MEQ KCL 1000ML 1,000 ML IV SCH ×3 (12:49→23:01)
--- NOTE | 2017-02-14 13:11 | DIAGNOSTIC IMAGING REPORT ---
KUB CLINICAL HISTORY: right-sided abdominal pain COMPARISON STUDY: No previous studies for comparison. FINDINGS: There are gas-filled small bowel and colonic loops. There are no transition zones indicate bowel obstruction. No abnormal abdominal calcifications are visualized. IMPRESSION: Portable supine study. No evidence of bowel obstruction Electronically signed by: Melvin Maza M.D. 02/14/2017 1:10 PM Dictated Date/Time: 02/14/2017 1:09 PM
[2017-02-14 13:14] LABS: BUN/CREATININE RATIO 12.7 (10-20); CALCIUM 7.6 mg/dl (8.5-10.1); CREATININE 1.4 mg/dl (0.60-1.40); POTASSIUM 3.9 mmol/L (3.5-5.1)
[2017-02-14 13:27] LABS: BETA-HYDROXYBUTYRATE 0.83 mg/dL (0.2-2.81)
[2017-02-14] MEDS ORDERED: INSULIN GLARGINE SOLOSTAR 100 UNITS/ML 3 ML PEN SC ONE (15:00)
[2017-02-14 16:00] VITALS: BP 112/70; PULSE 97; TEMP 37.5; O2SAT 95
[2017-02-14 16:50] LABS: BUN/CREATININE RATIO 14.1 (10-20); CALCIUM 8.1 mg/dl (8.5-10.1); POTASSIUM 3.8 mmol/L (3.5-5.1)
--- NOTE | 2017-02-14 18:32 | Progress Note ---
Subjective Date of Service: Feb 14, 2017. Subjective Pt evaluation today including: conversation w/ patient, physical exam, chart review, lab review, review of studies (RUQ u/s, KUB x-ray), review of inpatient medication list Pain: junction of RUQ/RLQ - persistent since yesterday PO Intake: tolerating clears Voiding: no voiding problems tele stable since admission patient reports he was on 35 units of lantus daily up until 6 months ago he was changed to 70/30 insulin at the detention for unknown reasons he states his glycemic control has been poor 'ever since' denies any further emesis denies diarrhea denies any recent RUQ pain with eating foods Problem List Medical Problems: (1) Dehydration Status: Acute (2) DKA (diabetic ketoacidoses) Status: Acute (3) Intractable vomiting Status: Acute Review of Systems Constitutional: No fever, No chills Respiratory: No shortness of breath Cardiac: No chest pain Abdomen: + see HPI, + pain, No diarrhea, No GI bleeding Objective Vital Signs Date Time Temp Pulse Resp B/P (MAP) Pulse Ox O2 Delivery O2 Flow Rate FiO2 02/14/17 16:00 Room Air 02/14/17 16:00 37.5 97 16 112/70 (84) 95 02/14/17 12:00 Room Air 02/14/17 11:37 36.7 96 18 115/58 (77) 99 02/14/17 08:20 36.8 103 18 110/57 (74) 97 02/14/17 08:00 Room Air 02/14/17 04:00 98 Room Air 02/14/17 04:00 Room Air 02/14/17 04:00 99 16 Room Air 02/14/17 02:25 36.7 109 18 128/70 98 Room Air 02/14/17 02:16 107 20 133/75 98 02/14/17 02:01 132/75 02/14/17 02:00 106 15 02/14/17 01:31 137/71 02/14/17 01:30 105 16 100 02/14/17 01:01 121/56 02/14/17 01:00 109 18 100 02/14/17 00:43 114 16 127/53 100 Room Air 02/14/17 00:05 100 20 116/50 96 Room Air 02/13/17 22:36 103 02/13/17 22:32 36.7 103 24 151/66 98 Room Air Physical Exam General Appearance: no apparent distress ENT: pharynx normal (MMM, no thrush ) Neck: no JVD Respiratory/Chest: lungs clear, no respiratory distress, no accessory muscle use Cardiovascular: no gallop, no murmur, + tachycardia Abdomen: normal bowel sounds, soft, no organomegaly, + tenderness (junction of RUQ/RLQ), + pertinent finding (no peritoneal signs ) Extremities: no pedal edema Neurologic/Psychiatric: alert, oriented x 3 Skin: no rash Laboratory Results Last 24 Hours Test 02/13/17 22:50 02/13/17 23:04 02/13/17 23:07 02/13/17 23:18 White Blood Count 21.66 K/uL Red Blood Count 4.91 M/uL Hemoglobin 14.3 g/dL Hematocrit 43.8 % Mean Corpuscular Volume 89.2 fL Mean Corpuscular Hemoglobin 29.1 pg Mean Corpuscular Hemoglobin Concent 32.6 g/dl Platelet Count 275 K/uL Mean Platelet Volume 10.9 fL Neutrophils (%) (Auto) 77.0 % Lymphocytes (%) (Auto) 11.2 % Monocytes (%) (Auto) 10.8 % Eosinophils (%) (Auto) 0.3 % Basophils (%) (Auto) 0.2 % Neutrophils # (Auto) 16.70 K/uL Lymphocytes # (Auto) 2.42 K/uL Monocytes # (Auto) 2.34 K/uL Eosinophils # (Auto) 0.06 K/uL Basophils # (Auto) 0.04 K/uL RDW Standard Deviation 43.7 fL RDW Coefficient of Variation 13.5 % Immature Granulocyte % (Auto) 0.5 % Immature Granulocyte # (Auto) 0.10 K/uL Toxic Vacuolation 1+ Echinocytes 1+ Prothrombin Time 10.3 SECONDS Prothromb Time International Ratio 1.0 Activated Partial Thromboplast Time 22.9 SECONDS Partial Thromboplastin Ratio 0.9 Sodium Level 134 mmol/L Potassium Level 4.9 mmol/L Chloride Level 95 mmol/L Carbon Dioxide Level 14 mmol/L Anion Gap 25.0 mmol/L 28.0 mmol/L Blood Urea Nitrogen 25 mg/dl Creatinine 1.70 mg/dl Est Creatinine Clear Calc Drug Dose 71.8 ml/min Estimated GFR () 61.4 Estimated GFR (Non- 52.9 BUN/Creatinine Ratio 14.6 Random Glucose 508 mg/dl Calcium Level 9.6 mg/dl Phosphorus Level 5.4 mg/dl Magnesium Level 2.0 mg/dl Total Bilirubin 2.4 mg/dl Direct Bilirubin 0.6 mg/dl Aspartate Amino Transf (AST/SGOT) 48 U/L Alanine Aminotransferase (ALT/SGPT) 123 U/L Alkaline Phosphatase 99 U/L Total Creatine Kinase 173 U/L Creatine Kinase MB 3.8 ng/ml Creatine Kinase MB Ratio 2.2 Troponin I < 0.015 ng/ml Total Protein 8.0 gm/dl Albumin 4.5 gm/dl Lipase 205 U/L Beta-Hydroxybutyric Acid 63.02 mg/dL Bedside Lactic Acid Venous 8.91 mmol/L Bedside Hemoglobin 15.6 g/dl Bedside Hematocrit 46 % Bedside Sodium 135 mEq/L Bedside Potassium 4.8 mEq/L Bedside Chloride 97 mEq/L Bedside Total CO2 15 mEq/l Bedside Blood Urea Nitrogen 25 mg/dl Bedside Creatinine 1.0 mg/dl Bedside Glucose (other) 539 mg/dl Bedside Ionized Calcium (Jose) 1.16 mmol/l Arterial Blood pH 7.27 Arterial Blood Partial Pressure CO2 26 mmHg Arterial Blood Partial Pressure O2 74 mm/Hg Arterial Blood HCO3 12 mmol/L Arterial Blood Oxygen Saturation 93.8 % Arterial Blood Base Excess -13.3 mEq/L Arterial Blood Gas Delivery RA Liborio Test POS Test 02/14/17 01:02 02/14/17 02:03 02/14/17 02:20 02/14/17 02:55 Bedside Glucose 469 mg/dl 485 mg/dl 360 mg/dl Urine Color YELLOW Urine Appearance CLEAR Urine pH 5.0 Urine Specific [place] 1.029 Urine Protein TRACE Urine Glucose (UA) 3+ Urine Ketones 3+ Urine Occult Blood TRACE Urine Nitrite NEG Urine Bilirubin NEG Urine Urobilinogen NEG Urine Leukocyte Esterase NEG Urine WBC (Auto) 1-5 /hpf Urine RBC (Auto) 0-4 /hpf Urine Hyaline Casts (Auto) 1-5 /lpf Urine Epithelial Cells (Auto) 5-10 /lpf Urine Bacteria (Auto) NEG Test 02/14/17 03:55 02/14/17 04:02 02/14/17 04:57 02/14/17 05:58 Venous Blood pH 7.32 Sodium Level 141 mmol/L Potassium Level 3.9 mmol/L Chloride Level 108 mmol/L Carbon Dioxide Level 21 mmol/L Anion Gap 12.0 mmol/L Blood Urea Nitrogen 22 mg/dl Creatinine 1.40 mg/dl Est Creatinine Clear Calc Drug Dose 87.2 ml/min Estimated GFR () 77.6 Estimated GFR (Non- 66.9 BUN/Creatinine Ratio 15.8 Random Glucose 313 mg/dl Calcium Level 8.5 mg/dl Beta-Hydroxybutyric Acid 48.23 mg/dL Bedside Glucose 297 mg/dl 302 mg/dl 247 mg/dl Test 02/14/17 06:56 02/14/17 08:02 02/14/17 08:40 02/14/17 09:00 Bedside Glucose 246 mg/dl 282 mg/dl 340 mg/dl Sodium Level 138 mmol/L Potassium Level mmol/L Chloride Level 108 mmol/L Carbon Dioxide Level 20 mmol/L Anion Gap 10.0 mmol/L Blood Urea Nitrogen 20 mg/dl Creatinine 1.30 mg/dl Est Creatinine Clear Calc Drug Dose 93.9 ml/min Estimated GFR () 84.9 Estimated GFR (Non- 73.2 BUN/Creatinine Ratio 15.2 Random Glucose 305 mg/dl Estimated Average Glucose 272 mg/dl Hemoglobin A1c 11.1 % Calcium Level 8.0 mg/dl Magnesium Level mg/dl Total Bilirubin 1.0 mg/dl Direct Bilirubin mg/dl Aspartate Amino Transf (AST/SGOT) U/L Alanine Aminotransferase (ALT/SGPT) 84 U/L Alkaline Phosphatase 62 U/L Total Protein 5.8 gm/dl Albumin 2.8 gm/dl Beta-Hydroxybutyric Acid 13.09 mg/dL Thyroid Stimulating Hormone (TSH) 0.379 uIu/ml Test 02/14/17 09:59 02/14/17 10:02 02/14/17 10:10 02/14/17 11:01 Bedside Glucose 294 mg/dl 311 mg/dl Venous Blood pH 7.42 Potassium Level 4.3 mmol/L Magnesium Level 1.7 mg/dl Direct Bilirubin 0.3 mg/dl Aspartate Amino Transf (AST/SGOT) 26 U/L Test 02/14/17 12:02 02/14/17 12:22 02/14/17 12:55 02/14/17 14:01 Bedside Glucose 372 mg/dl 413 mg/dl 229 mg/dl Venous Blood pH 7.39 Sodium Level 139 mmol/L Potassium Level 3.9 mmol/L Chloride Level 109 mmol/L Carbon Dioxide Level 24 mmol/L Anion Gap 6.0 mmol/L Blood Urea Nitrogen 18 mg/dl Creatinine 1.40 mg/dl Est Creatinine Clear Calc Drug Dose 87.2 ml/min Estimated GFR () 77.6 Estimated GFR (Non- 66.9 BUN/Creatinine Ratio 12.7 Random Glucose 308 mg/dl Calcium Level 7.6 mg/dl Beta-Hydroxybutyric Acid 0.83 mg/dL Test 02/14/17 15:08 02/14/17 15:35 02/14/17 15:45 02/14/17 15:58 Bedside Glucose 132 mg/dl 140 mg/dl 128 mg/dl Venous Blood pH 7.44 Sodium Level 141 mmol/L Potassium Level 3.8 mmol/L Chloride Level 110 mmol/L Carbon Dioxide Level 22 mmol/L Anion Gap 9.0 mmol/L Blood Urea Nitrogen 14 mg/dl Creatinine 1.00 mg/dl Est Creatinine Clear Calc Drug Dose 122.0 ml/min Estimated GFR () 116.5 Estimated GFR (Non- 100.6 BUN/Creatinine Ratio 14.1 Random Glucose 136 mg/dl Calcium Level 8.1 mg/dl Test 02/14/17 16:01 Bedside Glucose 135 mg/dl Assessment and Plan 31yo male with: 1. DKA - 2nd to noncompliance with insulin regimen? And, insulin regimen seems inadequate for him. No infectious etiology found to date although had significant leukocytosis along with abnormal LFTs. Repeat CBC in am. hemoglobin a1c markedly elevated. lengthy discussion held with him re: best option for insulin regimen. He wants to return to lantus/novolog in [place] of 70/30. Most recent pH and BMP show resolution of his DKA. Received about 50 units of regular insulin on the drip overnight. Will start lantus 30 units SC x 1 now. Wean drip off. Novolog - start correction factor 40 w/ carb ratio 1:15. Adjust as needed. 2. FEN - advance diet to full liquids then advance as tolerated. BMP, mag, phos in am. Take the dextrose out of fluids. Later on tonight lower fluid rate to 150cc/hr. 3. hypomagnesemia - 2 grams mag sulfate IV x 1. 4. right-sided abdominal pain - obtained RUQ u/s due to abnormal LFTs - negative for biliary disease. KUB x-ray without obvious renal stones, constipation, SBO, etc. Pain may simply be related to the DKA itself but the pain is too focal. Low threshold for CT abd/pelvis to exclude appendicitis, renal stone, etc. 5. HTN - lisinopril. 6. acute kidney injury - resolved. 7. DVT proph - SCDs. 8. abnormal LFTs - passed gallstone? reactive to his DKA/dehydration? statin induced? other? hold the statin. repeat LFTs today were improved. follow. lipase was normal. Continued [facility] stay due to: inadequate po fluid intake, multiple IV medications needed Discharge planning: other (detention )
[2017-02-14 20:14] VITALS: BP 114/68; PULSE 97; TEMP 37.1; O2SAT 97
[2017-02-15] VITALS (9 sets, daily range): BP systolic 115–147; BP diastolic 67–92; PULSE 70–93; TEMP 36.7–36.9; O2SAT 94–97
[2017-02-15] MEDS: MoRPHine SULFATE 2 MG/ML CARP IV PRN ×5 (02:24→21:44)
[2017-02-15] MEDS: HEPARIN SOD 5000 UNIT/0.5 ML CARP SQ SCH ×3 (05:50→21:53)
[2017-02-15 06:40] LABS: BASO % 0.3 %; BASO ABS # 0.02 K/uL (0-0.2); COMPLETE YES; EOS % 0.8 %; HEMATOCRIT 30.6 % (42-52); IG% 0.1 %; LYMPH % 33.7 %; LYMPH ABS # 2.66 K/uL (1.2-3.4); MEAN CELL VOLUME 86.9 fL (80-100); MEAN CORPUSCULAR HEMOGLOBIN 30.1 pg (25-34); MEAN CORPUSCULAR HGB CONC 34.6 g/dl (32-36); MEAN PLATELET VOLUME 10.1 fL (7.4-10.4); MONO % 4.6 %; NEUT % 60.5 %; PLATELET COUNT 174 K/uL (130-400); RED BLOOD COUNT 3.52 M/uL (4.7-6.1)
[2017-02-15] MEDS: DULOXETINE (CYMBALTA) 30 MG CAP PO SCH (08:05)
[2017-02-15] MEDS: DULOXETINE HCL 20 MG CAP PO SCH (08:05)
[2017-02-15] MEDS: LISINOPRIL 10 MG TAB PO SCH (08:05)
[2017-02-15] MEDS: INSULIN ASPART 100 UNITS/ML 3 ML PEN SC SCH ×4 (08:07→21:00)
[2017-02-15 09:18] LABS: BUN/CREATININE RATIO 8.1 (10-20); CALCIUM 7.6 mg/dl (8.5-10.1); CREATININE 0.95 mg/dl (0.60-1.40); MAGNESIUM 1.9 mg/dl (1.8-2.4); POTASSIUM 4.3 mmol/L (3.5-5.1)
[2017-02-15 09:56] LABS: ALB/GLOB RATIO 0.9 (0.9-2); PHOSPHORUS 1.2 mg/dl (2.5-4.9)
[2017-02-15] MEDS ORDERED: POTASSIUM PHOS 3 MMOL/1 ML INFUSION IV STA (10:37)
[2017-02-15] MEDS ORDERED: INSULIN GLARGINE SOLOSTAR 100 UNITS/ML 3 ML PEN SC ONE (10:37)
[2017-02-15] MEDS ORDERED: POTASSIUM PHOSPHATE INJ 24 MMOL in SODIUM CHLORIDE 0.9% 500ML 500 ML IV SCH (11:00)
[2017-02-15] MEDS ORDERED: OPTIRAY 320 IV PRN (12:15)
--- NOTE | 2017-02-15 14:39 | Progress Note ---
Subjective Date of Service: Feb 15, 2017. Subjective Pt evaluation today including: conversation w/ patient, physical exam, chart review, lab review Pain: junction of RLQ/RUQ; no epigastric pain PO Intake: ate Breakfast/lunch - both times it made abd pain worse Voiding: no voiding problems tele stable overnight he had abdominal pain throughout the night, even fasting, and required pain medications for it denies vomiting denies fever or chills pain in abdomen starts minutes after eating +flatus reports he had taken quite a bit of motrin at the snf recently for right hand pain he was told he had carpel tunnel Problem List Medical Problems: (1) Dehydration Status: Acute (2) DKA (diabetic ketoacidoses) Status: Acute (3) Intractable vomiting Status: Acute Review of Systems Constitutional: + fatigue, No fever, No chills Respiratory: No cough, No shortness of breath, No dyspnea on exertion Cardiac: No chest pain, No orthopnea Abdomen: + pain, No vomiting, No diarrhea, No constipation, No GI bleeding Objective Vital Signs Date Time Temp Pulse Resp B/P (MAP) Pulse Ox O2 Delivery O2 Flow Rate FiO2 02/15/17 12:00 36.7 84 20 131/77 (95) 96 02/15/17 08:00 Room Air 02/15/17 08:00 94 Room Air 02/15/17 07:28 36.9 86 18 132/80 (97) 96 02/15/17 04:10 Room Air 02/15/17 04:10 95 Room Air 02/15/17 03:38 36.7 84 16 115/69 (84) 96 Room Air 02/15/17 00:05 96 Room Air 02/15/17 00:03 Room Air 02/15/17 00:00 36.8 93 16 116/67 (83) 96 Room Air 02/14/17 20:14 37.1 97 18 114/68 (83) 97 Room Air 02/14/17 20:00 Room Air 02/14/17 16:00 Room Air 02/14/17 16:00 37.5 97 16 112/70 (84) 95 Physical Exam General Appearance: no apparent distress ENT: pharynx normal Neck: no JVD Respiratory/Chest: lungs clear, no respiratory distress, no accessory muscle use Cardiovascular: regular rate, rhythm, no gallop, no murmur Abdomen: normal bowel sounds, soft, no organomegaly, + tenderness (junction of RUQ/RLQ (slightly more prominent in the RLQ); no peritoneal signs) Extremities: no pedal edema Neurologic/Psychiatric: alert, oriented x 3 Skin: no rash Laboratory Results Last 24 Hours Test 02/14/17 15:08 02/14/17 15:35 02/14/17 15:45 02/14/17 15:58 Bedside Glucose 132 mg/dl 140 mg/dl 128 mg/dl Venous Blood pH 7.44 Sodium Level 141 mmol/L Potassium Level 3.8 mmol/L Chloride Level 110 mmol/L Carbon Dioxide Level 22 mmol/L Anion Gap 9.0 mmol/L Blood Urea Nitrogen 14 mg/dl Creatinine 1.00 mg/dl Est Creatinine Clear Calc Drug Dose 122.0 ml/min Estimated GFR () 116.5 Estimated GFR (Non- 100.6 BUN/Creatinine Ratio 14.1 Random Glucose 136 mg/dl Calcium Level 8.1 mg/dl Test 02/14/17 16:01 02/14/17 19:51 02/15/17 05:53 02/15/17 06:36 Bedside Glucose 135 mg/dl 216 mg/dl 107 mg/dl White Blood Count 7.90 K/uL Red Blood Count 3.52 M/uL Hemoglobin 10.6 g/dL Hematocrit 30.6 % Mean Corpuscular Volume 86.9 fL Mean Corpuscular Hemoglobin 30.1 pg Mean Corpuscular Hemoglobin Concent 34.6 g/dl Platelet Count 174 K/uL Mean Platelet Volume 10.1 fL Neutrophils (%) (Auto) 60.5 % Lymphocytes (%) (Auto) 33.7 % Monocytes (%) (Auto) 4.6 % Eosinophils (%) (Auto) 0.8 % Basophils (%) (Auto) 0.3 % Neutrophils # (Auto) 4.79 K/uL Lymphocytes # (Auto) 2.66 K/uL Monocytes # (Auto) 0.36 K/uL Eosinophils # (Auto) 0.06 K/uL Basophils # (Auto) 0.02 K/uL RDW Standard Deviation 44.1 fL RDW Coefficient of Variation 13.9 % Immature Granulocyte % (Auto) 0.1 % Immature Granulocyte # (Auto) 0.01 K/uL Test 02/15/17 08:45 02/15/17 11:05 Sodium Level 141 mmol/L Potassium Level 4.3 mmol/L Chloride Level 110 mmol/L Carbon Dioxide Level 24 mmol/L Anion Gap 7.0 mmol/L Blood Urea Nitrogen 8 mg/dl Creatinine 0.95 mg/dl Est Creatinine Clear Calc Drug Dose 128.5 ml/min Estimated GFR () 124.0 Estimated GFR (Non- 107.0 BUN/Creatinine Ratio 8.1 Random Glucose 192 mg/dl Lactic Acid Level 1.7 mmol/L Calcium Level 7.6 mg/dl Phosphorus Level 1.2 mg/dl Magnesium Level 1.9 mg/dl Total Bilirubin 0.6 mg/dl Aspartate Amino Transf (AST/SGOT) 46 U/L Alanine Aminotransferase (ALT/SGPT) 79 U/L Alkaline Phosphatase 55 U/L Total Protein 5.3 gm/dl Albumin 2.5 gm/dl Globulin 2.8 gm/dl Albumin/Globulin Ratio 0.9 Lipase 57 U/L Bedside Glucose 209 mg/dl Assessment and Plan 31yo male with: 1. DKA - 2nd to noncompliance with insulin regimen? No infectious etiology found. CBC with normal WBC this am. hemoglobin a1c markedly elevated. lengthy discussion held with him re: best option for insulin regimen. He wants to return to lantus/novolog in est[place] of 70/30. His overall control is quite good over the last 24 hours. Continue lantus 30 units qam. Continue novolog correction with carb ratio 1:15. 2. FEN - replace low phos. diet advanced to regular T1DM but patient having pain. Continue IVF for now due to possible NPO status. 3. hypomagnesemia - resolved. 4. right-sided abdominal pain - RUQ u/s negative for biliary disease. KUB x-ray without obvious renal stones, constipation, SBO, etc. He continues with pain despite resolution of DKA. His pain is quite focal in the abdomen on the right and thus need to r/o appendicitis, obstructing kidney stone, etc. Will obtain CT abd/pelvis w/ contrast. 5. HTN - lisinopril. Controlled. 6. acute kidney injury - resolved. 7. DVT proph - SCDs. 8. abnormal LFTs - passed gallstone? reactive to his DKA/dehydration? statin induced? other? LFTs have improved but haven't completely normalized. Pain on exam seems too low for gall bladder. Will obtain CT abd/pelvis as noted above. re-eval after CT. Continued [facility] stay due to: inadequate po fluid intake, inadequate oral pain control, multiple IV medications needed Discharge planning: other (snf )
--- NOTE | 2017-02-15 15:00 | DIAGNOSTIC IMAGING REPORT ---
CT SCAN OF THE ABDOMEN AND PELVIS WITH IV CONTRAST CLINICAL HISTORY: Right lower quadrant abdominal pain. COMPARISON STUDY: Abdominal radiograph and ultrasound dated 02/14/2017. TECHNIQUE: Following the IV administration of 93 cc of Optiray 320, CT scan of the abdomen and pelvis is performed from the lung bases to the proximal femora. Images are reviewed in the axial, sagittal, and coronal planes. IV contrast was administered without complication. Automated dose control exposure was utilized. CT DOSE: 712.10 mGy.cm FINDINGS: Lung bases: The heart is normal in size and without pericardial effusion. There are trace pleural effusions with associated dependent consolidation. Liver: The contrast-enhanced liver is normal in size, contour, and attenuation. There is no intrahepatic biliary ductal dilatation. The hepatic veins and portal veins are patent. Mild periportal edema is noted. Gallbladder: Unremarkable. Spleen: Normal in size and attenuation. Pancreas: Unremarkable. Adrenal glands: Unremarkable. Kidneys: The contrast enhanced kidneys are normal in size. There is mild bilateral hydroureteronephrosis, likely secondary to the markedly distended bladder. The kidneys enhance symmetrically. Abdominal vasculature: The abdominal aorta is normal in course and caliber. Bowel: The small bowel and colon are normal in course and caliber. There is colonic fecal retention. The appendix is well-visualized and normal. Peritoneum: Trace free fluid is present in the right paracolic gutter. No intraperitoneal free air is seen. Lymphadenopathy: None. Pelvic viscera: The bladder is distended and grossly unremarkable. The prostate and seminal vesicles are normal as visualized. Skeletal structures: No lytic or blastic lesions are seen. There is a mild an age indeterminant superior endplate compression deformity of T8. Soft tissues: There is mild body wall edema. IMPRESSION: 1. There is evidence of fluid overload, with pleural fluid, body wall edema, trace fluid in the paracolic gutter, and hepatic periportal edema. 2. The bladder is markedly distended. 3. There is mild bilateral hydroureteronephrosis, likely secondary to marked bladder distention. 4. The appendix is well-visualized and normal. 5. Trace pleural effusions with bibasilar consolidation. This likely represents atelectasis. Clinical correlation will be required. 6. Additional findings as above. Electronically signed by: Mulugeta Gonzalez M.D. 02/15/2017 2:58 PM Dictated Date/Time: 02/15/2017 2:51 PM
[2017-02-15] MEDS: POLYETHYLENE (MIRALAX) 17 GM PACK PO SCH (17:48)
[2017-02-15] MEDS: RANITIDINE IV 50 MG in DEXTROSE 5% 100ML 100 ML IV SCH (17:49)
[2017-02-16 00:15] VITALS: BP 138/86; PULSE 86; TEMP 37; O2SAT 95
[2017-02-16] MEDS: MoRPHine SULFATE 2 MG/ML CARP IV PRN ×3 (01:33→10:02)
[2017-02-16] MEDS: RANITIDINE IV 50 MG in DEXTROSE 5% 100ML 100 ML IV SCH ×2 (01:33→10:01)
[2017-02-16 04:35] VITALS: BP 136/87; PULSE 70; TEMP 37; O2SAT 97
[2017-02-16] MEDS: HEPARIN SOD 5000 UNIT/0.5 ML CARP SQ SCH (06:00)
[2017-02-16 06:55] LABS: BUN/CREATININE RATIO 5.4 (10-20); CALCIUM 8.3 mg/dl (8.5-10.1); CREATININE 0.76 mg/dl (0.60-1.40); POTASSIUM 4.2 mmol/L (3.5-5.1)
[2017-02-16 06:58] LABS: PHOSPHORUS 3.2 mg/dl (2.5-4.9)
[2017-02-16] MEDS: INSULIN ASPART 100 UNITS/ML 3 ML PEN SC SCH ×2 (07:00→12:54)
[2017-02-16 07:40] VITALS: BP 154/99; PULSE 67; TEMP 36.8; O2SAT 97
[2017-02-16] MEDS: LISINOPRIL 10 MG TAB PO SCH (08:49)
[2017-02-16] MEDS: DULOXETINE (CYMBALTA) 30 MG CAP PO SCH (08:50)
[2017-02-16] MEDS: POLYETHYLENE (MIRALAX) 17 GM PACK PO SCH (08:50)
[2017-02-16] MEDS: DULOXETINE HCL 20 MG CAP PO SCH (08:50)
[2017-02-16] MEDS ORDERED: INSULIN GLARGINE SOLOSTAR 100 UNITS/ML 3 ML PEN SC SCH ×2 (09:00→10:30)
[2017-02-16] MEDS ORDERED: NURSING VERBAL MED ORDER ONE (10:15)
[2017-02-16] MEDS ORDERED: NVLGIPEN SC (10:36)
[2017-02-16] MEDS ORDERED: INSDGIPEN SC (10:36)
--- NOTE | 2017-02-16 10:38 | Discharge Instructions ---
Discharge Instructions Date of Service Feb 16, 2017. Admission Reason for Admission: DKA Discharge Discharge Diagnosis / Problem: Diabetic Ketoacidosis Discharge Goals Goal(s): Decrease discomfort, Improve function, Prevent Disease Progression Activity Recommendations Activity Limitations: per Instructions/Follow-up section . Instructions / Follow-Up Instructions / Follow-Up You were diagnosed with DKA in the hospital We have switched you to 25 units of lantus in the morning and 8 units after meals. Please have a carb coverage goal of 1:12 Please monitor you glucose levels daily. If you have any worsening symptoms please come back to the emergency department Current Hospital Diet Patient's current hospital diet: Diabetes Type 1 Diet Discharge Diet Recommended Diet: Diabetes Type 1 Diet Pending Studies Studies pending at discharge: no Laboratory Results Hemoglobin A1c Test 02/14/17 08:40 Range/Units Estimated Average Glucose 272 mg/dl Hemoglobin A1c 11.1 H 4.5-5.6 % Medical Emergencies . Who to Call and When: Medical Emergencies: If at any time you feel your situation is an emergency, please call 911 immediately. . Non-Emergent Contact Non-Emergency issues call your: Primary Care Provider . . "Provider Documentation" section prepared by Alhaji Garces. . VTE Core Measure Inpt VTE Proph given/why not?: Unfractionated heparin SQ
--- NOTE | 2017-02-16 10:52 | Discharge Summary ---
Discharge Summary Date of Service Feb 16, 2017. (Alhaji Garces MD) Discharge Summary Admission Date: Feb 14, 2017 at 01:55 Discharge Date: Feb 16, 2017 Discharge Disposition: Home ([facility]) Principal Diagnosis: Diabetic Ketoacidosis (Alhaji Garces MD) Medication Reconciliation New Medications: Insulin Aspart (Novolog Flexpen) 100 Units/Ml Inj 8 UNITS SC ACHS for 30 Days, #8 VIAL 1 Refill Insulin Glargine (Lantus Solostar) 100 Unit/Ml Inj 25 UNITS SC QAM for 30 Days, #8 VIAL 1 Refill Continued Medications: Atorvastatin (Lipitor) 20 Mg Tab 20 MG PO DAILY, TAB Duloxetine Hcl (Cymbalta) 20 Mg Cap 20 MG PO DAILY, CAP BEGIN 02/02/17, TAKE ONCE DAILY MX 2 WEEKS. END 02/15/2017. Duloxetine Hcl (Cymbalta) 30 Mg Cap 30 MG PO DAILY, CAP BEGIN 02/16/17, TAKE ONCE DAILY X 1 MONTH. Lisinopril (Prinivil) 10 Mg Tab 10 MG PO DAILY, TAB [Glutose] () 1-2 PO PRN GLUTOSE 15 GEL 1-2 TUBES ORALLY, NEEDED, FOR LOW BLOOD SUGAR KOP Discontinued Medications: Insulin Human Regular (Humulin R) 100 Units/Ml Susp UNITS SQ AC PER SLIDING SCALE : 150- 200 = 2 UNITS 201- 280 = 4 UNITS 281- 330 = 6 UNITS 331- 380 = 8 UNITS 381- 430 = 10 UNITS > 430 = CALL Insulin Isophan/Regular (Humulin 70/30) Susp 30 UNITS SQ QAM, VIAL Insulin Isophan/Regular (Humulin 70/30) Susp 20 UNITS SQ QPM, VIAL HOLD IF BLOOD GLUCOSE IS < 120. Discharge Exam Patient stable and in no acute distress He still has some mild RUQ abdominal pain. CT with no acute findings Is tolerating a diet well and is having some diarrhea but no blood in the stool Review of Systems: Constitutional: No fever, No chills Respiratory: No cough, No shortness of breath, No dyspnea on exertion Cardiovascular: No chest pain, No palpitations Abdomen: + pain, + diarrhea, No nausea, No vomiting, No constipation Musculoskeletal: No joint pain, No muscle pain, No calf pain Genitourinary - Male: No hematuria, No dysuria Integumentary: No rash, No itch, No new/changing skin lesions Physical Exam: General Appearance: WD/WN, no apparent distress Respiratory/Chest: lungs clear, no respiratory distress, no accessory muscle use Cardiovascular: regular rate, rhythm, no murmur, normal peripheral pulses Abdomen / GI: normal bowel sounds, non tender, soft Extremities: normal inspection, no calf tenderness, normal capillary refill Neurologic/Psychiatric: alert, normal mood/affect, oriented x 3 Skin: normal color, warm/dry, no rash (Alhaji Garces MD) Hospital Course 31 y/o M Hx DM1, HTN, HPL - presents from a local [facility] with abdominal pain, nausea and vomiting. Initial labs were consistent with mild DKA and ASHLEY. He was admitted with DKA protocol with an insulin drip, IVF and electrolytes Q4H , as well as antiemetics and analgesia. On day 2 of hospitalization his abdominal pain persisted therefore he had a gallbladder US, KUB and CT abdomen which did not show any acute findings. His labs were all stable on 02/16/2017 and he was [facility] back to the [facility] facility. He was discharged with lantus 25qam and short acting insulin 8 units achs. He will need to get a follow up thyroid US for a nodule found on his neck on examination Total Time Spent: Less than 30 minutes This includes examination of the patient, discharge planning, medication reconciliation, and communication with other providers. (Alhaji Garces MD) Resident Physician Supervision Note: I interviewed and examined the patient. Discussed with Dr. Garces and agree with findings and plan as documented in the note. Any exceptions or clarifications are listed here: None Documented By: Fabian Ac sugars better no complaints of abdominal pain to me. all other ROS otherwise negative except for as above vitals noted nad breathing unlabored no pallor or icterus DKA - improved. discharge on basal / bolus - goal is to work towards carb counting. for now keeping basal/bolus about 50% each of total daily insulin abdominal pain - nonspecific. possibly rib related. had extensive GB w/u - but if persists could consider HIDA. stable for discharge Total Time Spent: Less than 30 minutes (Fabian Ac, D.O.) Discharge Instructions Please refer to the electronic Patient Visit Report (Discharge Instructions) for additional information. (Alhaji Garces MD) Additional Copies To Praveena RUIZ
[2017-02-16 14:29] VITALS: BP 154/99; PULSE 67; TEMP 36.8; O2SAT 97
[2017-04-28] MEDS ORDERED: PRT40 PO (13:24)
[2017-04-28] MEDS ORDERED: SUCR1TAB PO (13:24)
[2017-04-28] MEDS ORDERED: INSDGIPEN SC (13:24)
[2017-04-28] MEDS ORDERED: NVLGIPEN SC (13:24)
== END 2017-02-16 13:45 | DRG 638 ==
LOC: C.EDC 22:32 → C.2E 02-14 01:55 → ENRESERV 02-14 02:05
PROVIDERS: ADMIT Internal Medicine; ATTEND Family Medicine
DX: E10.10 Type 1 diabetes mellitus with ketoacidosis without coma (principal); N17.9 Acute kidney failure, unspecified; I10 Essential (primary) hypertension; E78.5 Hyperlipidemia, unspecified; E86.0 Dehydration; K59.00 Constipation, unspecified; F17.210 Nicotine dependence, cigarettes, uncomplicated; R11.10 Vomiting, unspecified; E83.39 Other disorders of phosphorus metabolism; E83.42 Hypomagnesemia; R10.11 Right upper quadrant pain; R94.5 Abnormal results of liver function studies; Z79.899 Other long term (current) drug therapy; Z79.4 Long term (current) use of insulin

== ENCOUNTER 2017-03-07 16:50 | Emergency (ER) | payer OTHER ==
[~2017-03-07] VITALS: Ht 182.9 cm; Wt 85.0 kg
[~2017-03-07 16:50] MED LIST: ATOR-22 PO; CYM/30 PO; DULO-24 PO; GLUTOSE PO; INSDGIPEN SC; LISI10TA PO; NVLGIPEN SC
[2017-03-07 16:54] VITALS: TEMP 36.9; Ht 182.9 cm; Wt 85.0 kg
[2017-03-07] MEDS ORDERED: SODIUM CHLORIDE 0.9% 1000ML 1,000 ML IV STA ×3 (18:11→21:18)
[2017-03-07] MEDS ORDERED: ONDANSETRON 8 MG/54 ML D5W IV STA (18:11)
--- NOTE | 2017-03-07 18:18 | EMERGENCY ROOM VISIT NOTE ---
History Report prepared by Siomara: Maury Weiss Under the Supervision of: Dr. Malina Diaz D.O. First contact with patient: 17:59 Chief Complaint: HYPERGLYCEMIA Stated Complaint: HIGH SUGAR LEVEL Nursing Triage Summary: Nausea, vomiting, BSG 393. DM Type I. Hepatitis C+ per call in sheet - pt denies. Had 30 u of 70/30 insulin and 10 u of regular insulin per pt. History of Present Illness The patient is a 31 year old male who presents to the Emergency Room with complaints of hyperglycemia that occurred this afternoon. His sugars were found to be 393 at this time. He was recently treated as an inpatient for DKA and was discharged on February 16, 2017. He has a past medical history of type 1 diabetes and hepatitis C. He states that he currently feels as he did in his previous episode of DKA. When he was discharged from the hospital, he was changed to Lantus insulin, which he states works for him. However, when he got back to his [facility], he was placed back onto 70/30 insulin, which he states does not work. Prior to arrival, he was given 30 units of 70/30 insulin and 10 units of regular insulin. He is currently experiencing nausea, vomiting, abdominal pain, frequent urination, and a low grade fever. He denies any diarrhea, urinary burning or pain, cough, or rash. He notes that he has not been able to eat since yesterday. Source of History: patient Onset: this afternoon Position: other (global) Symptom Intensity: BSG 393 Quality: other (Hyperglycemia) Timing: waxes/wanes Associated Symptoms: + fevers, + nausea, + vomiting, + abdominal pain, + urinary symptoms (Frequency, no burning or pain), No cough, No melena, No hematochezia, No diarrhea, No rash Review of Systems See HPI for pertinent positives & negatives. A total of 10 systems reviewed and were otherwise negative. Past Medical & Surgical Medical Problems: (1) Diabetes (2) Dyslipidemia (3) HTN (hypertension) Family History Diabetes mellitus Social History Smoking Status: Current Every Day Smoker Smokeless Tobacco Use: Unknown Housing Status: other Occupation Status: other Current/Historical Medications Scheduled Atorvastatin (Lipitor), 20 MG PO DAILY Dextrose (Diabetic Use) (Glucose), 1-2 TUBE PRN Duloxetine HCl (Cymbalta), 30 MG PO DAILY Insulin Human Isophan/Regular (Humulin 70/30), 30 UNITS SC QPM Insulin Isophan/Regular (Humulin 70/30), 40 UNITS SC QAM Lisinopril (Prinivil), 10 MG PO DAILY Scheduled PRN Ondansetron Hcl (Zofran), 4 MG PO TID PRN for Nausea or Vomiting Miscellaneous Medications Insulin Human Regular (Humulin R), SC Allergies Coded Allergies: Penicillins (Verified Allergy, Intermediate, childhood. unsure, 02/13/17) Physical Exam Vital Signs Date Time Temp Pulse Resp B/P (MAP) Pulse Ox O2 Delivery O2 Flow Rate FiO2 03/08/17 00:47 93 18 117/64 96 Room Air 03/07/17 23:46 78 18 123/68 98 Room Air 03/07/17 21:49 81 18 111/70 98 Room Air 03/07/17 18:17 100 03/07/17 16:54 36.9 110 16 134/85 95 Room Air Physical Exam GENERAL: alert, well appearing, well nourished, no distress, non-toxic. Faint fruity odor noted. Patient is still in [facility] restraints with two guards present in the room. EYE EXAM: normal conjunctiva, PERRL and EOM's grossly intact OROPHARYNX: no exudate, no erythema, lips, buccal mucosa, and tongue normal, and mucous membranes are dry. NECK: supple, no nuchal rigidity, no adenopathy, non-tender LUNGS: Clear to auscultation. Normal chest wall mechanics HEART: no murmurs, S1 normal and S2 normal ABDOMEN: abdomen soft, mild generalized discomfort noted, normo-active bowel sounds, no masses, no rebound or guarding. No organomegaly. BACK: Back is symmetrical on inspection and there is no deformity, no midline tenderness, no CVA tenderness. SKIN: no rashes and no bruising UPPER EXTREMITIES: upper extremities are grossly normal. LOWER EXTREMITIES: No pitting edema. NEURO EXAM: Normal sensorium, cranial nerves II-XII grossly intact, normal speech, no gross weakness of arms, no gross weakness of legs. No facial droop. Medical Decision & Procedures ER Provider Diagnostic Interpretation: Radiology results have been interpreted by the radiologist and reviewed by me. PA CHEST RADIOGRAPH AND UPRIGHT AND SUPINE AP RADIOGRAPHS OF THE ABDOMEN CLINICAL HISTORY: Abdominal pain, nausea and vomiting. COMPARISON STUDY: Chest radiograph February 13, [address] of the abdomen and pelvis February 15, 2017. FINDINGS: The lung volumes are normal. The lungs are clear. No pneumothorax or pleural effusion is identified. Cardiac size is normal. Mediastinal contours are normal. Pulmonary vascularity is normal. There is no free air. There is a moderate amount of stool within the colon and rectum. The bowel gas pattern is normal. IMPRESSION: 1. No free air or evidence of bowel obstruction. 2. Moderate amount of stool within the colon and rectum. 3. No acute cardiopulmonary findings. Electronically signed by: Luis Carlos Bacon M.D. 03/07/2017 7:31 PM Dictated Date/Time: 03/07/2017 7:[address] OF THE ABDOMEN AND PELVIS WITHOUT CONTRAST CLINICAL HISTORY: Abdominal pain, nausea and vomiting. COMPARISON STUDY: CT of the abdomen and pelvis February 15, 2017. TECHNIQUE: Axial images of the abdomen and pelvis were obtained without IV contrast. Images were reviewed in the axial, sagittal, and coronal planes. A dose lowering technique was utilized adhering to the principles of ALARA. FINDINGS: Evaluation of the abdomen and pelvis is suboptimal on this unenhanced exam. The liver, spleen, adrenal glands, kidneys and pancreas are unremarkable. No renal, ureteral or bladder calculi are present. There is no pneumatosis, free air or portal venous gas. There is no evidence for a bowel obstruction. The appendix is normal. There is no lymphadenopathy. There is no ascites. No suspicious skeletal lesions are identified. IMPRESSION: 1. No urinary calculi or hydronephrosis. 2. Suboptimal evaluation of the abdomen and pelvis given the lack of IV and oral contrast. No acute findings identified. Normal appendix. No bowel obstruction. Electronically signed by: Luis Carlos Bacon M.D. 03/07/2017 10:50 PM Dictated Date/Time: 03/07/2017 10:44 PM Laboratory Results 03/07/17 18:25 Red Blood Count 4.24, Mean Corpuscular Volume 89.6, Mean Corpuscular Hemoglobin 31.4, Mean Corpuscular Hemoglobin Concent 35.0, Mean Platelet Volume 10.0, Neutrophils (%) (Auto) 72.8, Lymphocytes (%) (Auto) 17.8, Monocytes (%) (Auto) 8.5, Eosinophils (%) (Auto) 0.4, Basophils (%) (Auto) 0.3, Neutrophils # (Auto) 6.91, Lymphocytes # (Auto) 1.69, Monocytes # (Auto) 0.81, Eosinophils # (Auto) 0.04, Basophils # (Auto) 0.03 03/07/17 23:14 Test 03/07/17 18:25 03/07/17 19:02 03/07/17 19:45 03/07/17 23:14 White Blood Count 9.50 K/uL (4.8-10.8) Red Blood Count 4.24 M/uL (4.7-6.1) Hemoglobin 13.3 g/dL (14.0-18.0) Hematocrit 38.0 % (42-52) Mean Corpuscular Volume 89.6 fL (80-100) Mean Corpuscular Hemoglobin 31.4 pg (25-34) Mean Corpuscular Hemoglobin Concent 35.0 g/dl (32-36) Platelet Count 257 K/uL (130-400) Mean Platelet Volume 10.0 fL (7.4-10.4) Neutrophils (%) (Auto) 72.8 % Lymphocytes (%) (Auto) 17.8 % Monocytes (%) (Auto) 8.5 % Eosinophils (%) (Auto) 0.4 % Basophils (%) (Auto) 0.3 % Neutrophils # (Auto) 6.91 K/uL (1.4-6.5) Lymphocytes # (Auto) 1.69 K/uL (1.2-3.4) Monocytes # (Auto) 0.81 K/uL (0.11-0.59) Eosinophils # (Auto) 0.04 K/uL (0-0.5) Basophils # (Auto) 0.03 K/uL (0-0.2) RDW Standard Deviation 46.4 fL (36.4-46.3) RDW Coefficient of Variation 14.0 % (11.5-14.5) Immature Granulocyte % (Auto) 0.2 % Immature Granulocyte # (Auto) 0.02 K/uL (0.00-0.02) Phosphorus Level 2.4 mg/dl (2.5-4.9) Magnesium Level 2.2 mg/dl (1.8-2.4) Total Bilirubin 2.0 mg/dl (0.2-1) Aspartate Amino Transf (AST/SGOT) 41 U/L (15-37) Alanine Aminotransferase (ALT/SGPT) 125 U/L (12-78) Alkaline Phosphatase 85 U/L (45-117) Total Protein 7.3 gm/dl (6.4-8.2) Albumin 3.6 gm/dl (3.4-5.0) Globulin 3.7 gm/dl (2.5-4.0) Albumin/Globulin Ratio 1.0 (0.9-2) Lipase 60 U/L (73-393) Thyroid Stimulating Hormone (TSH) 0.825 uIu/ml (0.300-4.500) Lactic Acid Level 1.3 mmol/L (0.4-2.0) Ethyl Alcohol mg/dL < 3.0 mg/dl (0-3) Urine Color YELLOW Urine Appearance CLEAR (CLEAR) Urine pH 5.0 (4.5-7.5) Urine Specific [place] 1.039 (1.000-1.030) Urine Protein 3+ (NEG) Urine Glucose (UA) 3+ (NEG) Urine Ketones 4+ (NEG) Urine Occult Blood 1+ (NEG) Urine Nitrite NEG (NEG) Urine Bilirubin NEG (NEG) Urine Urobilinogen NEG (NEG) Urine Leukocyte Esterase NEG (NEG) Urine WBC (Auto) 1-5 /hpf (0-5) Urine RBC (Auto) 0-4 /hpf (0-4) Urine Hyaline Casts (Auto) 5-10 /lpf (0-5) Urine Epithelial Cells (Auto) 10-20 /lpf (0-5) Urine Bacteria (Auto) NEG (NEG) Urine Opiates Screen NEG (NEG) Urine Methadone, Qualitative NEG (NEG) Urine Barbiturates NEG (NEG) Urine Phencyclidine (PCP) Level NEG (NEG) Ur Amphetamine/Methamphetamine NEG (NEG) MDMA (Ecstasy) Screen NEG (NEG) Urine Benzodiazepines Screen NEG (NEG) Urine Cocaine Metabolite NEG (NEG) Urine Marijuana (THC) NEG (NEG) Anion Gap 6.0 mmol/L (3-11) Est Creatinine Clear Calc Drug Dose 133.2 ml/min Estimated GFR () 133.0 Estimated GFR (Non- 114.7 BUN/Creatinine Ratio 21.9 (10-20) Calcium Level 7.9 mg/dl (8.5-10.1) Test 03/08/17 00:02 Bedside Glucose 131 mg/dl (70-99) Laboratory results per my review. Medications Administered Medications (Trade) Dose Ordered Sig/Madai Route Start Time Stop Time Status Last Admin Dose Admin Sodium Chloride 1,000 ml @ 999 mls/hr Q1H1M STAT IV 03/07/17 18:11 03/07/17 19:11 DC 03/07/17 18:46 999 MLS/HR Ondansetron HCl (Zofran 8mg Iv) 8 mg NOW STAT IV 03/07/17 18:11 03/07/17 18:13 DC 03/07/17 18:46 8 MG Sodium Chloride 1,000 ml @ 999 mls/hr Q1H1M STAT IV 03/07/17 19:14 03/07/17 20:14 DC 03/07/17 20:49 999 MLS/HR Metoclopramide HCl (Reglan Inj) 10 mg NOW STAT IM 03/07/17 19:37 03/07/17 19:38 DC 03/07/17 20:05 10 MG Diphenhydramine HCl (Benadryl Inj) 25 mg NOW STAT IV 03/07/17 19:37 03/07/17 19:38 DC 03/07/17 20:05 25 MG Ketorolac Tromethamine (Toradol Inj) 30 mg NOW STAT IV 03/07/17 21:18 03/07/17 21:19 DC 03/07/17 21:33 30 MG Sodium Chloride 1,000 ml @ 999 mls/hr Q1H1M STAT IV 03/07/17 21:18 03/07/17 22:18 DC 03/07/17 21:33 999 MLS/HR ECG Indication: nausea, vomiting Rate (beats per minute): 89 Rhythm: sinus rhythm Findings: no acute ischemic change, other (Normal axis, normal intervals) ED Course 1758: The patient was evaluated in room B10. A complete history and physical exam was performed. 1810: Ordered Ondansetron HCl 8 mg IV, Sodium Chloride 1000 ml @ 999 mls/hr IV 1913: Ordered Sodium Chloride 1000 ml @ 999 mls/hr IV 1936: Ordered Benadryl Inj 25 mg IV, Reglan Inj 10 mg IM 2117: Ordered Sodium Chloride 1000 ml @ 999 mls/hr IV, Toradol Inj 30 mg IV 2118: The patient is still mildly nauseated. 0014: I spoke with Scarlett, a nurse [place] the [place], at this time. Discussed evaluation here including all labs and imaging. Discussed blood glucose readings. Discussed recent medication regimen during last admission and at discharge. They are comfortable with the patient coming back to the [facility]. 0032: Upon reevaluation, the patient is feeling better. I discussed the findings and the treatment plan with the patient. He verbalizes agreement and understanding. He was discharged home. Medical Decision Differential diagnosis: Etiologies such as appendicitis, diverticulitis, PUD, biliary pathology, UTI, pancreatitis, obstruction, mesenteric ischemia, aortic pathology, infections, inflammatory bowel disease, renal colic, as well as others were entertained. Pt with hx of DKA and recent admission. Pt admits to poorly controlled blood glucose levels since discharge stating they changed him from lantus back to insulin 70/30 which doesn't control him as well. States yesterday began having recurrent abdominal pain similar to prior episode of DKA as well as nausea vomiting. Blood sugars today at the [facility] were elevated again and patient was given additional insulin and sent to the emergency room for evaluation for possible recurrent DKA. No DKA found here, patient given several liters of IV fluids watch for multiple hours. Due to persistence of abdominal pain despite otherwise reassuring labs patient sent for CT which did not reveal any new acute pathology. Patient's pain began to improve, blood sugars return to normal , patient tolerated by mouth without any recurrent pain and without any significant rise in blood sugar level. I called and discuss with the [facility] nurse at the [facility], discussed recent medications when he was admitted, need for a longer acting controlling agents such as Lantus, more frequent blood glucose checks, discussed all labs and evaluation of his ER visit today, discussed symptoms to watch and return for, close follow-up regarding a possible thyroid nodule, she verbalized understanding of all this was agreeable with plan. All of this was discussed with the patient at bedside, and he verbalized understanding of all this was agreeable with plan. Medication Reconcilliation Current Medication List: was personally reviewed by me Blood Pressure Screening Patient's blood pressure: Normal blood pressure Impression Primary Impression: Hyperglycemia Additional Impressions: Abdominal pain Vomiting Diabetes Scribe Attestation The scribe's documentation has been prepared under my direction and personally reviewed by me in its entirety. I confirm that the note above accurately reflects all work, treatment, procedures, and medical decision making performed by me. Departure Information Dispostion Home / Self-Care Referrals Praveena RUIZ (PCP) Forms HOME CARE DOCUMENTATION FORM, IMPORTANT VISIT INFORMATION, WORK / SCHOOL INSTRUCTIONS Patient Instructions [facility] Additional Instructions Please take your insulin. Please have your sugar checked more frequently in the next 2-3 days as a precaution. Please discuss with the doctor there using the regimen that was prescribed when you were last admitted. This was Lantus 25 units SC QAM and insulin aspart 8 units SC ACHS. Please drink plenty of water to stay well hydrated. Please have your urine rechecked and monitored for ketones. Please take your other medications as prescribed. Please have a thyroid US done as an outpatient to evaluate for the possible nodules. Please monitor for any recurrent abdominal pain, fevers/chills, blood in your urine, vomiting, dizziness, or any other new or concerning symptoms. Problem Qualifiers Additional Impressions: Abdominal pain Abdominal location: generalized Qualified Codes: R10.84 - Generalized abdominal pain Vomiting Vomiting type: unspecified Vomiting Intractability: non-intractable Nausea presence: with nausea Qualified Codes: R11.2 - Nausea with vomiting, unspecified Diabetes Diabetes mellitus type: type 1 Diabetes mellitus complication status: with hyperglycemia Qualified Codes: E10.65 - Type 1 diabetes mellitus with hyperglycemia
[2017-03-07] MEDS ORDERED: INSU1INJ SC (18:37)
[2017-03-07] MEDS ORDERED: ATOR-22 PO (18:37)
[2017-03-07] MEDS ORDERED: INSHRIE SC (18:37)
[2017-03-07] MEDS ORDERED: LISI10TA PO (18:37)
[2017-03-07] MEDS ORDERED: CYM/30 PO (18:37)
[2017-03-07] MEDS ORDERED: ONDA4TAB65 PO (18:37)
[2017-03-07] MEDS ORDERED: INSHI7030 SC (18:40)
[2017-03-07] MEDS ORDERED: DEXT40GE20 (18:42)
[2017-03-07 18:43] LABS: BASO % 0.3 %; BASO ABS # 0.03 K/uL (0-0.2); COMPLETE YES; EOS % 0.4 %; IG% 0.2 %; LYMPH % 17.8 %; LYMPH ABS # 1.69 K/uL (1.2-3.4); MEAN CELL VOLUME 89.6 fL (80-100); MEAN CORPUSCULAR HEMOGLOBIN 31.4 pg (25-34); MONO % 8.5 %; NEUT % 72.8 %; PLATELET COUNT 257 K/uL (130-400); RED BLOOD COUNT 4.24 M/uL (4.7-6.1)
[2017-03-07 19:01] LABS: BUN/CREATININE RATIO 21.6 (10-20); MAGNESIUM 2.2 mg/dl (1.8-2.4); POTASSIUM 4.1 mmol/L (3.5-5.1)
[2017-03-07 19:12] LABS: PHOSPHORUS 2.4 mg/dl (2.5-4.9); THYROID STIMULATING HORMONE 0.825 uIu/ml (0.300-4.500)
--- NOTE | 2017-03-07 19:32 | DIAGNOSTIC IMAGING REPORT ---
PA CHEST RADIOGRAPH AND UPRIGHT AND SUPINE AP RADIOGRAPHS OF THE ABDOMEN CLINICAL HISTORY: Abdominal pain, nausea and vomiting. COMPARISON STUDY: Chest radiograph February 13, [address] of the abdomen and pelvis February 15, 2017. FINDINGS: The lung volumes are normal. The lungs are clear. No pneumothorax or pleural effusion is identified. Cardiac size is normal. Mediastinal contours are normal. Pulmonary vascularity is normal. There is no free air. There is a moderate amount of stool within the colon and rectum. The bowel gas pattern is normal. IMPRESSION: 1. No free air or evidence of bowel obstruction. 2. Moderate amount of stool within the colon and rectum. 3. No acute cardiopulmonary findings. Electronically signed by: Luis Carlos Bacon M.D. 03/07/2017 7:31 PM Dictated Date/Time: 03/07/2017 7:29 PM
[2017-03-07] MEDS ORDERED: METOCLOPRAMIDE HCL INJ 5 MG/ML 2 ML VIAL IM STA (19:37)
[2017-03-07] MEDS ORDERED: DiphenhydrAMINE HCL 50 MG/ML VIAL IV STA (19:37)
[2017-03-07 20:41] LABS: URINE APPEARANCE CLEAR (CLEAR); URINE BILIRUBIN NEG (NEG); URINE COLOR YELLOW; URINE NITRITE NEG (NEG); URINE SPECIFIC GRAVITY 1.039 (1.000-1.030); UROBILINOGEN NEG (NEG); ZZUR CULT IF INDIC CLEAN CATCH NO
[2017-03-07 20:42] LABS: MANUAL MICROSCOPIC REQUIRED? NO; REVIEW REQ? NO
[2017-03-07 21:04] LABS: BENZODIAZEPINE, URINE NEG (NEG); COCAINE,URINE NEG (NEG); PHENCYCLIDINE, URINE NEG (NEG)
[2017-03-07] MEDS ORDERED: KETOROLAC TROMETHAMINE 30 MG/ML VIAL IV STA (21:18)
--- NOTE | 2017-03-07 22:51 | DIAGNOSTIC IMAGING REPORT ---
CT OF THE ABDOMEN AND PELVIS WITHOUT CONTRAST CLINICAL HISTORY: Abdominal pain, nausea and vomiting. COMPARISON STUDY: CT of the abdomen and pelvis February 15, 2017. TECHNIQUE: Axial images of the abdomen and pelvis were obtained without IV contrast. Images were reviewed in the axial, sagittal, and coronal planes. A dose lowering technique was utilized adhering to the principles of ALARA. FINDINGS: Evaluation of the abdomen and pelvis is suboptimal on this unenhanced exam. The liver, spleen, adrenal glands, kidneys and pancreas are unremarkable. No renal, ureteral or bladder calculi are present. There is no pneumatosis, free air or portal venous gas. There is no evidence for a bowel obstruction. The appendix is normal. There is no lymphadenopathy. There is no ascites. No suspicious skeletal lesions are identified. IMPRESSION: 1. No urinary calculi or hydronephrosis. 2. Suboptimal evaluation of the abdomen and pelvis given the lack of IV and oral contrast. No acute findings identified. Normal appendix. No bowel obstruction. Electronically signed by: Luis Carlos Bacon M.D. 03/07/2017 10:50 PM Dictated Date/Time: 03/07/2017 10:44 PM
[2017-03-07 23:38] LABS: BUN/CREATININE RATIO 21.9 (10-20); CALCIUM 7.9 mg/dl (8.5-10.1); CREATININE 0.89 mg/dl (0.60-1.40); POTASSIUM 3.8 mmol/L (3.5-5.1)
[2017-03-08 00:47] VITALS: BP 117/64; PULSE 93; O2SAT 96
[2017-04-28] MEDS ORDERED: INSDGIPEN SC (13:24)
[2017-04-28] MEDS ORDERED: SUCR1TAB PO (13:24)
[2017-04-28] MEDS ORDERED: NVLGIPEN SC (13:24)
[2017-04-28] MEDS ORDERED: PRT40 PO (13:24)
== END 2017-03-08 00:49 | disposition home or self-care (01) ==
LOC: C.EDB 16:52
DX: E10.65 Type 1 diabetes mellitus with hyperglycemia (principal); R11.2 Nausea with vomiting, unspecified; R10.84 Generalized abdominal pain; Z79.899 Other long term (current) drug therapy; F17.210 Nicotine dependence, cigarettes, uncomplicated

== ENCOUNTER → 2017-04-09 | Outpatient (CLI) | payer OTHER ==
[~2017-04-09] MED LIST changes: +DEXT40GE20; -DULO-24 PO; -GLUTOSE PO; +INSHI7030 SC; +INSHRIE SC; +INSU1INJ SC; +ONDA4TAB65 PO; +PRT40 PO; +SUCR1TAB PO
--- NOTE | 2017-04-09 09:02 | DIAGNOSTIC IMAGING REPORT ---
NUCLEAR MEDICINE HEPATOBILIARY SCAN HISTORY: Generalized abdominal pain. COMPARISON: Abdomen and pelvis CT 03/07/2017. TECHNIQUE: Immediately following the intravenous administration of 5.5 mCi Tc-99m Choletec, dynamic anterior abdominal imaging was performed. FINDINGS: Uniform hepatic tracer accumulation is shown. Prompt intrahepatic biliary excretion is seen. The gallbladder, common bile duct, and small bowel are all visualized by 25 minutes. This appearance represents the normal sequence of biliary excretion. IMPRESSION: 1. No evidence for cystic duct obstruction. Electronically signed by: Gael Currie M.D. 04/09/2017 9:01 AM Dictated Date/Time: 04/09/2017 9:00 AM
== END | disposition home or self-care (01) ==
LOC: C.NUCL 07:29
PROVIDERS: ATTEND Internal Medicine
DX: R11.2 Nausea with vomiting, unspecified (principal); R10.9 Unspecified abdominal pain

== ENCOUNTER 2017-04-25 11:56 | Inpatient (IN) | payer OTHER ==
[~2017-04-25] VITALS: Ht 185.4 cm; Wt 95.2 kg
[~2017-04-25 11:56] MED LIST changes: -INSDGIPEN SC; -NVLGIPEN SC; -PRT40 PO; -SUCR1TAB PO
[2017-04-25] MEDS ORDERED: ONDANSETRON INJ 2 MG/ML 2 ML VIAL ONE ×2 (12:20→12:56)
[2017-04-25] MEDS ORDERED: SODIUM CHLORIDE 0.9% 1000ML 2,000 ML IV STA (12:24)
--- NOTE | 2017-04-25 12:39 | DIAGNOSTIC IMAGING REPORT ---
CHEST ONE VIEW PORTABLE CLINICAL HISTORY: Pain, radiating to the abdomen. COMPARISON STUDY: 03/07/2017 FINDINGS: The cardiac and mediastinal contours are normal. There is no evidence of focal pulmonary consolidation. There is no evidence of failure. No pleural effusions are visualized.[ No free intraperitoneal air is visualized. IMPRESSION: No active disease in the chest. Electronically signed by: Melvin Maza M.D. 04/25/2017 12:38 PM Dictated Date/Time: 04/25/2017 12:37 PM
[2017-04-25 12:46] LABS: HEMATOCRIT 40.8 % (42-52); MEAN CELL VOLUME 91.1 fL (80-100); MEAN CORPUSCULAR HEMOGLOBIN 31.5 pg (25-34); MEAN CORPUSCULAR HGB CONC 34.6 g/dl (32-36); MEAN PLATELET VOLUME 11.3 fL (7.4-10.4); PLATELET COUNT 305 K/uL (130-400); RED BLOOD COUNT 4.48 M/uL (4.7-6.1); WHITE BLOOD COUNT 21.45 K/uL (4.8-10.8)
[2017-04-25] MEDS ORDERED: ONDANSETRON INJ 2 MG/ML 2 ML VIAL IV STA (12:54)
[2017-04-25 12:58] LABS: BUN/CREATININE RATIO 15.3 (10-20); CALCIUM 9.7 mg/dl (8.5-10.1); CREATININE 1.6 mg/dl (0.60-1.40); POTASSIUM 5.7 mmol/L (3.5-5.1)
[2017-04-25 13:15] LABS: BETA-HYDROXYBUTYRATE 73.19 mg/dL (0.2-2.81)
[2017-04-25] MEDS ORDERED: SODIUM CHLORIDE 0.9% 1000ML 1,000 ML IV STA ×2 (13:26)
[2017-04-25 13:30] LABS: BASO % 0.2 %; BASO ABS # 0.04 K/uL (0-0.2); COMPLETE YES; EOS % 0.3 %; IG% 0.4 %; LYMPH % 8.9 %; LYMPH ABS # 1.91 K/uL (1.2-3.4); NEUT % 82.2 %
[2017-04-25] MEDS ORDERED: DKA GOAL RANGE 150-250 mg/dl 1 EA ONE ×3 (13:30→15:15)
--- NOTE | 2017-04-25 13:34 | DIAGNOSTIC IMAGING REPORT ---
CT SCAN OF THE ABDOMEN AND PELVIS WITHOUT CONTRAST CLINICAL HISTORY: Nausea and vomiting COMPARISON STUDY: 03/07/2017 TECHNIQUE: CT scan of the abdomen and pelvis was performed from the lung bases to the proximal femurs. Images are reviewed in the axial, sagittal, and coronal planes. IV contrast was not administered for this examination. A dose lowering technique was utilized adhering to the principles of ALARA. CT DOSE: 400.82 mGy.cm FINDINGS: Lower chest: The heart is normal in size and configuration, without pericardial effusion. The lung bases and pleural spaces are clear. Liver: There is mild hepatic steatosis. No focal hepatic masses are visualized. Gallbladder: Unremarkable. Spleen: Normal in size and attenuation. Pancreas: Unremarkable. Adrenal glands: Unremarkable. Kidneys: The unenhanced kidneys are normal in size without hydronephrosis. There is no contour deforming renal mass lesion. No renal calculi are identified. Bowel: There are no transition zones indicate bowel obstruction. The appendix appears normal. There is no acute diverticulitis. Peritoneum: There is no intraperitoneal free air or abdominal ascites. Vasculature: The abdominal aorta is normal in course and caliber. Adenopathy: None. Pelvic viscera: The bladder, and pelvic viscera are unremarkable. Skeletal structures: No destructive osseous lesions are seen. IMPRESSION: 1. No renal, ureteral, or bladder calculi identified 2. No evidence of bowel obstruction. No evidence of free air 3. Normal appendix 4. Mild hepatic steatosis Electronically signed by: Melvin Maza M.D. 04/25/2017 1:32 PM Dictated Date/Time: 04/25/2017 1:29 PM
--- NOTE | 2017-04-25 14:07 | EMERGENCY ROOM VISIT NOTE ---
History Report prepared by Siomara: Alireza Cosby Under the Supervision of: Dr. Geoff Dumont D.O. First contact with patient: 12:15 Chief Complaint: HYPERGLYCEMIA Stated Complaint: HI SUGAR/VOMIT, NAUSEA / [facility] Nursing Triage Summary: Patient brought in by [facility] for hyperglycemia with a reported BSG there of of 413. Patient also having nausea and vomiting with heme positive emesis. Patient has not taken insulin since night. BSG here was 470 and emesis is heme positive. History of Present Illness The patient is a 31 year old male who presents to the Emergency Room with complaints of persistent hyperglycemia. He is an inmate at [facility]. He was found to have a blood sugar of 413 shortly prior to arrival. The patient also complains of nausea, abdominal pain and vomiting. He has not taken his insulin in two days. He has a history of Type I diabetes and was diagnosed at the age of 13. The patient states that he had his symptoms of nausea and abdominal pain for several days. He has been in DKA before with the most recent episode occurring two months ago. Source of History: patient Onset: Shortly prior to arrival Symptom Intensity: BSG of 413 Quality: other (hyperglycemia) Timing: other (persistent) Associated Symptoms: + nausea, + vomiting, + abdominal pain Review of Systems See HPI for pertinent positives & negatives. A total of 10 systems reviewed and were otherwise negative. Past Medical & Surgical Medical Problems: (1) Diabetes (2) Dyslipidemia (3) HTN (hypertension) Family History Diabetes mellitus Social History Smoking Status: Current Every Day Smoker Housing Status: other Occupation Status: other Current/Historical Medications Scheduled Atorvastatin (Lipitor), 20 MG PO DAILY Dextrose (Diabetic Use) (Glucose), 1-2 TUBE PRN Insulin Human Isophan/Regular (Humulin 70/30), 36 UNITS SC QPM Insulin Isophan/Regular (Humulin 70/30), 40 UNITS SC QAM Lisinopril (Prinivil), 10 MG PO DAILY Scheduled PRN Ondansetron Hcl (Zofran), 4 MG PO TID PRN for Nausea or Vomiting Miscellaneous Medications Insulin Human Regular (Humulin R), SC Allergies Coded Allergies: Penicillins (Verified Allergy, Intermediate, childhood. unsure, 04/25/17) Physical Exam Vital Signs Date Time Temp Pulse Resp B/P (MAP) Pulse Ox O2 Delivery O2 Flow Rate FiO2 9/16/17 15:21 116 20 134/61 99 Room Air 04/25/17 13:51 110 24 142/60 100 Room Air 04/25/17 12:27 114 04/25/17 12:19 94 Room Air 04/25/17 12:14 36.8 109 17 149/62 94 Room Air Physical Exam GENERAL: Patient is awake, alert, and in no acute distress. Patient is somewhat anxious and uncomfortable appearing. EYES: The conjunctivae are clear. The pupils are round and reactive. EARS, NOSE, MOUTH AND THROAT: The nose is without any evidence of any deformity. Mucous membranes are dry. Tongue is midline NECK: The neck is nontender and supple. RESPIRATORY: Normal respiratory effort is noted there is no evidence of wheezing rhonchi or rales CARDIOVASCULAR: Tachycardic but regular. No definite murmur noted to auscultation. GASTROINTESTINAL: Bowel sounds are present in all quadrants. Mildly distended but soft. Diffuse tenderness to palpation. No specific guarding or rigidity. MUSCULOSKELETAL/EXTREMITIES: There is no evidence of gross deformity full range of motion is noted in the hips and shoulders SKIN: There is no obvious evidence of any rash. There are no petechiae, pallor or cyanosis noted. NEUROLOGIC: Patient is awake alert and oriented x3 strength is symmetric patellar reflexes are 2+ bilaterally Medical Decision & Procedures ER Provider Diagnostic Interpretation: Radiology results as stated below per my review and radiologist interpretation: CHEST ONE VIEW PORTABLE FINDINGS: The cardiac and mediastinal contours are normal. There is no evidence of focal pulmonary consolidation. There is no evidence of failure. No pleural effusions are visualized.[ No free intraperitoneal air is visualized. IMPRESSION: No active disease in the chest. Electronically signed by: Melvin Maza M.D. CT SCAN OF THE ABDOMEN AND PELVIS WITHOUT CONTRAST FINDINGS: Lower chest: The heart is normal in size and configuration, without pericardial effusion. The lung bases and pleural spaces are clear. Liver: There is mild hepatic steatosis. No focal hepatic masses are visualized. Gallbladder: Unremarkable. Spleen: Normal in size and attenuation. Pancreas: Unremarkable. Adrenal glands: Unremarkable. Kidneys: The unenhanced kidneys are normal in size without hydronephrosis. There is no contour deforming renal mass lesion. No renal calculi are identified. Bowel: There are no transition zones indicate bowel obstruction. The appendix appears normal. There is no acute diverticulitis. Peritoneum: There is no intraperitoneal free air or abdominal ascites. Vasculature: The abdominal aorta is normal in course and caliber. Adenopathy: None. Pelvic viscera: The bladder, and pelvic viscera are unremarkable. Skeletal structures: No destructive osseous lesions are seen. IMPRESSION: 1. No renal, ureteral, or bladder calculi identified 2. No evidence of bowel obstruction. No evidence of free air 3. Normal appendix 4. Mild hepatic steatosis Electronically signed by: Melvin Maza M.D. 04/25/2017 1:32 PM Laboratory Results 04/25/17 12:05 Red Blood Count 4.48, Mean Corpuscular Volume 91.1, Mean Corpuscular Hemoglobin 31.5, Mean Corpuscular Hemoglobin Concent 34.6, Mean Platelet Volume 11.3, Neutrophils (%) (Auto) 82.2, Lymphocytes (%) (Auto) 8.9, Monocytes (%) (Auto) 8.0, Eosinophils (%) (Auto) 0.3, Basophils (%) (Auto) 0.2, Neutrophils # (Auto) 17.64, Lymphocytes # (Auto) 1.91, Monocytes # (Auto) 1.72, Eosinophils # (Auto) 0.06, Basophils # (Auto) 0.04 04/25/17 12:05 Test 04/25/17 12:05 04/25/17 14:00 04/25/17 14:45 04/25/17 15:56 White Blood Count 21.45 K/uL (4.8-10.8) Red Blood Count 4.48 M/uL (4.7-6.1) Hemoglobin 14.1 g/dL (14.0-18.0) Hematocrit 40.8 % (42-52) Mean Corpuscular Volume 91.1 fL (80-100) Mean Corpuscular Hemoglobin 31.5 pg (25-34) Mean Corpuscular Hemoglobin Concent 34.6 g/dl (32-36) Platelet Count 305 K/uL (130-400) Mean Platelet Volume 11.3 fL (7.4-10.4) Neutrophils (%) (Auto) 82.2 % Lymphocytes (%) (Auto) 8.9 % Monocytes (%) (Auto) 8.0 % Eosinophils (%) (Auto) 0.3 % Basophils (%) (Auto) 0.2 % Neutrophils # (Auto) 17.64 K/uL (1.4-6.5) Lymphocytes # (Auto) 1.91 K/uL (1.2-3.4) Monocytes # (Auto) 1.72 K/uL (0.11-0.59) Eosinophils # (Auto) 0.06 K/uL (0-0.5) Basophils # (Auto) 0.04 K/uL (0-0.2) RDW Standard Deviation 41.9 fL (36.4-46.3) RDW Coefficient of Variation 12.4 % (11.5-14.5) Immature Granulocyte % (Auto) 0.4 % Immature Granulocyte # (Auto) 0.08 K/uL (0.00-0.02) Anion Gap 21.0 mmol/L (3-11) Est Creatinine Clear Calc Drug Dose 76.3 ml/min Estimated GFR () 66.0 Estimated GFR (Non- 57.0 BUN/Creatinine Ratio 15.3 (10-20) Calcium Level 9.7 mg/dl (8.5-10.1) Phosphorus Level 4.5 mg/dl (2.5-4.9) Magnesium Level 2.4 mg/dl (1.8-2.4) Total Bilirubin 1.9 mg/dl (0.2-1) Direct Bilirubin 0.5 mg/dl (0-0.2) Aspartate Amino Transf (AST/SGOT) 66 U/L (15-37) Alanine Aminotransferase (ALT/SGPT) 160 U/L (12-78) Alkaline Phosphatase 94 U/L (45-117) Total Protein 7.7 gm/dl (6.4-8.2) Albumin 4.1 gm/dl (3.4-5.0) Amylase Level 30 U/L (25-115) Lipase 48 U/L (73-393) Beta-Hydroxybutyric Acid 73.19 mg/dL (0.2-2.81) Venous Blood pH 7.22 (7.36-7.41) Venous Blood Partial Pressure CO2 31 mmHg (38.0-50.0) Venous Blood Partial Pressure O2 48 mmHg Venous Blood HCO3 12 mmol/L Venous Blood Oxygen Saturation 76.0 % Venous Blood Base Excess -14.4 mEq/L Urine Color YELLOW Urine Appearance CLEAR (CLEAR) Urine pH 5.0 (4.5-7.5) Urine Specific [place] 1.028 (1.000-1.030) Urine Protein 1+ (NEG) Urine Glucose (UA) 3+ (NEG) Urine Ketones 3+ (NEG) Urine Occult Blood 1+ (NEG) Urine Nitrite NEG (NEG) Urine Bilirubin NEG (NEG) Urine Urobilinogen NEG (NEG) Urine Leukocyte Esterase NEG (NEG) Urine WBC (Auto) 0 /hpf (0-5) Urine RBC (Auto) 0-4 /hpf (0-4) Urine Hyaline Casts (Auto) 0 /lpf (0-5) Urine Epithelial Cells (Auto) 0-5 /lpf (0-5) Urine Bacteria (Auto) NEG (NEG) Bedside Glucose 427 mg/dl (70-99) Laboratory results per my review. Medications Administered Medications (Trade) Dose Ordered Sig/Madai Route Start Time Stop Time Status Last Admin Dose Admin Ondansetron HCl (Zofran Inj) 4 mg STK-MED ONCE .ROUTE 04/25/17 12:20 04/25/17 12:21 DC 04/25/17 12:20 4 MG Sodium Chloride 2,000 ml @ 999 mls/hr Q2H1M STAT IV 04/25/17 12:24 04/25/17 14:24 DC 04/25/17 12:24 999 MLS/HR Ondansetron HCl (Zofran Inj) 4 mg NOW STAT IV 04/25/17 12:54 04/25/17 12:56 DC 04/25/17 12:58 4 MG Sodium Chloride 1,000 ml @ 999 mls/hr Q1H1M STAT IV 04/25/17 13:26 04/25/17 14:26 DC 04/25/17 13:26 999 MLS/HR Sodium Chloride 1,000 ml @ 200 mls/hr Q5H STAT IV 04/25/17 13:26 04/25/17 16:34 DC 04/25/17 13:26 200 MLS/HR Insulin Human Regular 2 unit/ Syringe 2 ml @ 1 mls/min TODAY@1445 IV 04/25/17 14:45 04/25/17 14:46 DC 04/25/17 14:57 1 MLS/MIN Insulin Human Regular 250 units/ Sodium Chloride 252.5 ml @ 0 mls/hr DAILY@1130 IV 04/25/17 14:37 04/26/17 11:29 04/25/17 14:56 2.2 MLS/HR ED Course 1222: The patient was evaluated in room B8. A complete history and physical examination were performed. 1224: Ordered NSS 2000 ml @ 999 mls/hr IV, Zofran Inj 4 mg IV. 1326: Ordered NSS 1,000 ml @ 200 mls/hr IV, NSS 1,000 ml @ 999 mls/hr IV. 1320: Upon reevaluation, the patient is resting comfortably. I discussed results and treatment plan with him. He verbalizes agreement and understanding. I spoke with Dr. Antony of the [facility] [facility]. The patient will be evaluated for further management and care. 1330: Ordered Insulin Protocal DKA Goal Range. Medical Decision Differential diagnosis: Etiologies such as metabolic, infection, hypo/hyperglycemia, electrolyte abnormalities, cardiac sources, intracerebral event, toxicologic, neurologic, as well as others were entertained. Nursing notes reviewed. The patient is a 31-year-old male who presented to the emergency department for an evaluation of elevated blood sugar. The patient has a history of type 1 diabetes and states that he has not been compliant with his insulin over the last day but I suspect he may have been noncompliant for longer. The patient was found have signs of DKA with elevated blood sugar and acidemia. He was also found have significant elevation in his ketones. He was treated with significant IV fluids in the emergency department. He was also treated with Zofran and IV insulin. I discussed the patient's laboratory and radiographic studies with him. He was reevaluated multiple times. I discussed his case with the on-call [facility] hospitalist. They have agreed to evaluate the patient in the emergency department for further management and disposition. Consults Time Called: 1320 Consulting Physician: Dr. Antony -[facility] Returned Call: 1324 I discussed the patient's case with Dr. Antony. The patient will be evaluated for further management. Impression Primary Impression: DKA (diabetic ketoacidoses) Additional Impressions: Abdominal pain Nausea Critical Care I have personally spent greater than 45 minutes of critical care time in the direct management of this patient. This includes bedside care, interpretation of diagnostic studies, and testing, discussion with consultants, patient, and family members, and other required patient management activities. This 45 minutes is in excess of all separately billable procedures. Scribe Attestation The scribe's documentation has been prepared under my direction and personally reviewed by me in its entirety. I confirm that the note above accurately reflects all work, treatment, procedures, and medical decision making performed by me. Departure Information Dispostion Being Evaluated By Hospitalist Referrals Praveena RUIZ (PCP) Patient Instructions My [facility] Problem Qualifiers Primary Impression: DKA (diabetic ketoacidoses) Diabetes mellitus type: type 1 Diabetes mellitus complication detail: without coma Qualified Codes: E10.10 - Type 1 diabetes mellitus with ketoacidosis without coma Additional Impressions: Abdominal pain Abdominal location: generalized Qualified Codes: R10.84 - Generalized abdominal pain
[2017-04-25 14:11] LABS: VEN BLOOD GAS BASE EXCESS -14.4 mEq/L
[2017-04-25] MEDS ORDERED: INSULIN IV INFUSION PROTOCOL STA ×2 (14:11→15:06)
[2017-04-25] MEDS ORDERED: MoRPHine SULFATE 2 MG/ML CARP IV STA (14:40)
[2017-04-25] MEDS ORDERED: METOCLOPRAMIDE HCL INJ 5 MG/ML 2 ML VIAL IV STA (14:40)
[2017-04-25] MEDS ORDERED: INSULIN HUMAN REGULAR IV BOLUS 2 UNIT in SYRINGE 0 ML IV SCH (14:45)
[2017-04-25] MEDS ORDERED: GLUCOSE 10 TABS/TUBE PO PRN (14:45)
[2017-04-25] MEDS ORDERED: GLUCAGON FOR INJ 1 MG VIAL SQ PRN (14:45)
[2017-04-25] MEDS ORDERED: DEXTROSE 50% 50 ML SYR IV PRN (14:45)
[2017-04-25] MEDS ORDERED: GLUCOSE 40% GEL 15 GM TUBE PO PRN (14:45)
[2017-04-25] MEDS: INSULIN REGULAR 250 UNITS in SODIUM CHLORIDE 0.9% 250ML 250 ML IV SCH ×4 (14:56→19:49)
[2017-04-25] MEDS ORDERED: SODIUM CHLORIDE 0.9% 1000ML 1,000 ML IV SCH (15:06)
[2017-04-25 15:14] LABS: MAGNESIUM 2.4 mg/dl (1.8-2.4); PHOSPHORUS 4.5 mg/dl (2.5-4.9)
[2017-04-25] MEDS ORDERED: MODERATE STRESS LEVEL ONE (15:15)
[2017-04-25] MEDS ORDERED: DC ALL PREVIOUSLY ORDERED DIABETES MEDS ONE (15:15)
[2017-04-25] MEDS ORDERED: PANTOprazole INJ 80 MG in DEXTROSE 5% 100ML IV SCH (15:15)
[2017-04-25 15:55] LABS: URINE APPEARANCE CLEAR (CLEAR); URINE BILIRUBIN NEG (NEG); URINE COLOR YELLOW; URINE EPITHELIAL CELL AUTO 0-5 /lpf (0-5); URINE NITRITE NEG (NEG); URINE SPECIFIC GRAVITY 1.028 (1.000-1.030); UROBILINOGEN NEG (NEG)
[2017-04-25 16:04] LABS: MANUAL MICROSCOPIC REQUIRED? NO; REVIEW REQ? NO
[2017-04-25] MEDS: ONDANSETRON INJ 2 MG/ML 2 ML VIAL IV PRN ×2 (16:44→23:44)
[2017-04-25 16:53] VITALS: BP 136/72; PULSE 114; TEMP 36.8; O2SAT 99; BMI 26.0
[2017-04-25] MEDS: PANTOprazole INJ 40 MG in DEXTROSE 5% 100ML IV SCH ×2 (17:46→20:53)
[2017-04-25] MEDS: INSULIN ASPART 100 UNITS/ML 3 ML PEN SC SCH ×2 (17:48→20:44)
[2017-04-25] MEDS ORDERED: INSULIN ASPART 100 UNITS/ML 3 ML PEN SC SCH ×2 (18:00→19:00)
[2017-04-25] MEDS ORDERED: PNEUMOCOCCAL ADMINISTRATION CHARGE ONE (18:15)
[2017-04-25] MEDS ORDERED: PNEUMOCOCCAL POLYSACCHARIDES 25 MCG/0.5 ML VIAL/SYR IM. ONE (18:15)
[2017-04-25 19:08] LABS: HEMATOCRIT 34.3 % (42-52)
[2017-04-25 19:27] LABS: BUN/CREATININE RATIO 16.8 (10-20); CREATININE 1.4 mg/dl (0.60-1.40); MAGNESIUM 2.2 mg/dl (1.8-2.4); POTASSIUM 4.5 mmol/L (3.5-5.1)
[2017-04-25 19:42] VITALS: BP 138/67; PULSE 112; TEMP 36.9; O2SAT 100
[2017-04-25] MEDS: MoRPHine SULFATE 2 MG/ML CARP IV PRN ×2 (19:52→23:44)
[2017-04-25 20:17] LABS: BETA-HYDROXYBUTYRATE 75.79 mg/dL (0.2-2.81)
[2017-04-25] MEDS: NSS + 20MEQ KCL 1000ML 1,000 ML IV SCH (20:28)
[2017-04-25 20:41] LABS: CALCIUM 8.2 mg/dl (8.5-10.1); PHOSPHORUS 2.4 mg/dl (2.5-4.9)
--- NOTE | 2017-04-25 20:44 | History and Physical ---
History & Physical Date & Time of Service: Apr 25, 2017 at 14:38 Chief Complaint: Hi Sugar/Vomit, Nausea / Sci Praveena Primary Care Physician: Praveena RUIZ History of Present Illness Source: patient 31yo male with T1DM who presents with constant upper abdominal pain starting AM. The pain was so severe that he "could not eat." He had associated nausea. Had some intermittent vomiting since which then got quite severe this AM. He had multiple episodes of emesis today and the guards with him in the ER report that it looked quite dark, possibly coffee-ground. Denies NSAID use. Suffers from GERD symptoms about twice weekly. Blood sugars on Thursday of this week were in the 200s, then remberto into the 300s on . He has had NO insulin (70/30) since . His fingersticks then remberto into the 400s today. No diarrhea, constipation, obvious melena, or BRBPR. Of note - there is a HIDA scan that was done at [facility] just a few weeks ago in March and was normal. ER staff report that after he had emesis they performed a gastric occult and it was positive for blood. Past Medical/Surgical History PMH: 1. T1DM - dx age 13 2. HTN 3. Hyperlipidemia 4. multiple admissions for DKA PSH: 1. right arm surgery due to infection 2. 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 unsure, 04/25/17) Home Medications Scheduled Atorvastatin (Lipitor), 20 MG PO DAILY Dextrose (Diabetic Use) (Glucose), 1-2 TUBE PRN Insulin Human Isophan/Regular (Humulin 70/30), 36 UNITS SC QPM Insulin Isophan/Regular (Humulin 70/30), 40 UNITS SC QAM Lisinopril (Prinivil), 10 MG PO DAILY Scheduled PRN Ondansetron Hcl (Zofran), 4 MG PO TID PRN for Nausea or Vomiting Miscellaneous Medications Insulin Human Regular (Humulin R), SC Review of Systems Constitutional: + weight loss, No fever Eyes: + worsening of vision (blurry over the last few days) ENT: No nasal symptoms, No sore throat, No dental problems, No trouble swallowing Respiratory: + shortness of breath (this AM only), No cough Cardiovascular: + chest pain (when he had emesis today), No edema Abdomen: + pain, + nausea, + vomiting, No diarrhea, No constipation, No GI bleeding Genitourinary - Male: No hematuria, No dysuria Neurologic: + numbness/tingling (hands), + problem reported (+headache) Psychiatric: No depression symptoms, No anxiety Endocrine: + excessive thirst Hematologic / Lymphatic: No abnormal bleeding/bruising Integumentary: No rash Physical Exam Vital Signs Date Time Temp Pulse Resp B/P (MAP) Pulse Ox O2 Delivery O2 Flow Rate FiO2 04/25/17 13:51 110 24 142/60 100 Room Air 04/25/17 12:27 114 04/25/17 12:19 94 Room Air 04/25/17 12:14 36.8 109 17 149/62 94 Room Air General Appearance: WD/WN, + mild distress (vomiting, ill-appearing ) Head: normocephalic, atraumatic Eyes: PERRL, sclerae normal ENT: hearing grossly normal, TMs normal, + pertinent finding (MM dry, "fruity" DKA breath present ) Neck: supple, no adenopathy, no JVD Respiratory/Chest: lungs clear, no respiratory distress, no accessory muscle use, + pertinent finding (mild "quiet" tachypnea ) Cardiovascular: no gallop, normal peripheral pulses, + tachycardia, + systolic murmur (1/6 MATEO LSB) Abdomen/GI: normal bowel sounds, soft, no organomegaly, + tenderness (high epigastric region) Back: normal inspection Extremities/Musculoskelatal: no pedal edema Neurologic/Psych: vamp creaser II-XII nml as tested, no motor/sensory deficits, alert, normal reflexes, oriented x 3 Skin: normal color, no rash Lymphatic: no adenopathy (cervical ) Diagnostics Laboratory Results Results Past 24 Hours Test 04/25/17 12:05 04/25/17 12:10 04/25/17 13:34 04/25/17 14:00 Range/Units White Blood Count 21.45 4.8-10.8 K/uL Red Blood Count 4.48 4.7-6.1 M/uL Hemoglobin 14.1 14.0-18.0 g/dL Hematocrit 40.8 42-52 % Mean Corpuscular Volume 91.1 80-100 fL Mean Corpuscular Hemoglobin 31.5 25-34 pg Mean Corpuscular Hemoglobin Concent 34.6 32-36 g/dl Platelet Count 305 130-400 K/uL Mean Platelet Volume 11.3 7.4-10.4 fL Neutrophils (%) (Auto) 82.2 % Lymphocytes (%) (Auto) 8.9 % Monocytes (%) (Auto) 8.0 % Eosinophils (%) (Auto) 0.3 % Basophils (%) (Auto) 0.2 % Neutrophils # (Auto) 17.64 1.4-6.5 K/uL Lymphocytes # (Auto) 1.91 1.2-3.4 K/uL Monocytes # (Auto) 1.72 0.11-0.59 K/uL Eosinophils # (Auto) 0.06 0-0.5 K/uL Basophils # (Auto) 0.04 0-0.2 K/uL RDW Standard Deviation 41.9 36.4-46.3 fL RDW Coefficient of Variation 12.4 11.5-14.5 % Immature Granulocyte % (Auto) 0.4 % Immature Granulocyte # (Auto) 0.08 0.00-0.02 K/uL Sodium Level 131 136-145 mmol/L Potassium Level 5.7 3.5-5.1 mmol/L Chloride Level 97 98-107 mmol/L Carbon Dioxide Level 13 21-32 mmol/L Anion Gap 21.0 3-11 mmol/L Blood Urea Nitrogen 25 7-18 mg/dl Creatinine 1.60 0.60-1.40 mg/dl Est Creatinine Clear Calc Drug Dose 76.3 ml/min Estimated GFR () 66.0 Estimated GFR (Non- 57.0 BUN/Creatinine Ratio 15.3 10-20 Random Glucose 490 70-99 mg/dl Calcium Level 9.7 8.5-10.1 mg/dl Total Bilirubin 1.9 0.2-1 mg/dl Direct Bilirubin 0.5 0-0.2 mg/dl Aspartate Amino Transf (AST/SGOT) 66 15-37 U/L Alanine Aminotransferase (ALT/SGPT) 160 12-78 U/L Alkaline Phosphatase 94 45-117 U/L Total Protein 7.7 6.4-8.2 gm/dl Albumin 4.1 3.4-5.0 gm/dl Amylase Level 30 25-115 U/L Lipase 48 73-393 U/L Beta-Hydroxybutyric Acid 73.19 0.2-2.81 mg/dL Bedside Glucose 470 475 70-99 mg/dl Venous Blood pH 7.22 7.36-7.41 Venous Blood Partial Pressure CO2 31 38.0-50.0 mmHg Venous Blood Partial Pressure O2 48 mmHg Venous Blood HCO3 12 mmol/L Venous Blood Oxygen Saturation 76.0 % Venous Blood Base Excess -14.4 mEq/L Diagnostic Radiology 1. CT abd/pelvis - IMPRESSION: 1. No renal, ureteral, or bladder calculi identified 2. No evidence of bowel obstruction. No evidence of free air 3. Normal appendix 4. Mild hepatic steatosis CXR normal EKG EKG - my reading - sinus tach, no ST changes Impression Assessment and Plan 31yo male with T1DM presenting with severe upper abdominal pain, hematemesis beginning this AM (gastric occult positive in the ER), acute kidney injury, and DKA. 1. DKA - patient stopped his insulin am after he developed the abdominal pain and lost his appetite. He quickly developed hyperglycemia and now DKA. Will institute insulin drip protocol with moderate stress level. Copious IV fluids (start with NS @ 200cc/hr and add KCL once K level is about 5) . Send blood cultures with next blood draw and start antibiotics if any fever or other infectious symptoms. Keep NPO for now given his suspected GI bleeding/emesis. Q4h BMP, mag, phos, pH. Place on telemetry. Check hemoglobin a1c with next blood draw. 2. acute kidney injury - 2nd to #1. Serial labs, hydrate. 3. hematemesis - he could have gastritis, PUD, etc. Keep NPO. IVF. IV PPI drip. GI consultation requested. I believe that the cause of his hematemesis is the cause of his abdominal pain. Serial H/H's. 4. hyperkalemia - 2nd to DKA - will resolve with IV insulin. 5. DVT proph - SCDs; chemical means contraindicated. 6. abnormal LFTs - ER staff reported that they were told he had Hepatitis C. I asked him directly if he had HepB or HepC and he stated he was unsure. Will send hepatitis profile. Repeat LFTs in am for stability. Previous RUQ u/ s only showed fatty liver. Recent HIDA scan was negative. 7. leukocytosis - likely 2nd to DKA; cannot r/o infectious cause but less likely. CXR w/o pneumonia. Send blood cx's. U/a not suggestive of UTI. Level of Care Telemetry Advanced Directives Existing Advance Directive: No Resuscitation Status FULL RESUSCITATION VTE Prophylaxis Risk Level: Moderate Given or contraindicated: SCD's, Contraindicated Note total time 70 minutes Additional Copies To Praveena RUIZ
[2017-04-25 23:52] LABS: HEMATOCRIT 32.9 % (42-52)
[2017-04-26] VITALS (8 sets, daily range): BP systolic 119–142; BP diastolic 69–79; PULSE 84–107; TEMP 36.6–37.1; O2SAT 96–99
[2017-04-26 00:14] LABS: BUN/CREATININE RATIO 16.3 (10-20); CALCIUM 7.9 mg/dl (8.5-10.1); CREATININE 1.4 mg/dl (0.60-1.40); MAGNESIUM 2.4 mg/dl (1.8-2.4); PHOSPHORUS 2.1 mg/dl (2.5-4.9); POTASSIUM 4.7 mmol/L (3.5-5.1)
[2017-04-26] MEDS: PANTOprazole INJ 40 MG in DEXTROSE 5% 100ML IV SCH ×5 (01:35→21:12)
[2017-04-26] MEDS: NSS + 20MEQ KCL 1000ML 1,000 ML IV SCH (02:37)
[2017-04-26] MEDS: MoRPHine SULFATE 2 MG/ML CARP IV PRN ×6 (04:10→21:22)
[2017-04-26 04:26] LABS: BUN/CREATININE RATIO 17.5 (10-20); CALCIUM 7.6 mg/dl (8.5-10.1); CREATININE 1.2 mg/dl (0.60-1.40); MAGNESIUM 2.4 mg/dl (1.8-2.4); POTASSIUM 4.3 mmol/L (3.5-5.1)
[2017-04-26 06:03] LABS: ESTIMATED AVERAGE GLUCOSE 189 mg/dl; HA1C FLAG Normal (Normal)
[2017-04-26] MEDS: INSULIN REGULAR 250 UNITS in SODIUM CHLORIDE 0.9% 250ML 250 ML IV SCH ×5 (06:29→18:00)
[2017-04-26] MEDS: ONDANSETRON INJ 2 MG/ML 2 ML VIAL IV PRN ×3 (08:02→21:22)
[2017-04-26] MEDS: INSULIN ASPART 100 UNITS/ML 3 ML PEN SC SCH ×4 (08:04→21:00)
[2017-04-26] MEDS: D5W AND 1/2NSS + 20MEQ KCL 1,000 ML IV SCH ×2 (08:56→18:05)
--- NOTE | 2017-04-26 10:23 | GASTROINTESTINAL CONSULTATION ---
DATE OF CONSULTATION: 04/26/2017 CHIEF COMPLAINT: Nausea and vomiting. HISTORY OF PRESENT ILLNESS: The patient is a 31-year-old male with a history of type 1 diabetes, who presented to the Emergency Room with abdominal pain, nausea and vomiting over 4 days. The patient notes that he had several episodes of emesis, beginning on , which became bloody light. In the Emergency Room, he was found to have evidence of coffee-ground emesis. Of note, the patient is color blind and was unable to tell me the color of his emesis prior to admission. The patient does have a history of diabetes, which appears to be poorly controlled as he has been in to the hospital for ketoacidosis on several occasions in the past year. PAST MEDICAL HISTORY: 1. Type 1 diabetes. 2. Hypertension. 3. Hypercholesterolemia. PAST SURGICAL HISTORY: 1. Right arm surgery. 2. Tonsillectomy. FAMILY HISTORY: Type 2 diabetes in grandmother and grandfather. Heart disease in grandfather. SOCIAL HISTORY: The patient is a smoker, one-half pack per day. The patient denies alcohol use. The patient is incarcerated. The patient does have a history of IV drug use in the past. ALLERGIES: PENICILLIN. OUTPATIENT MEDICATIONS: Lipitor 20 mg per day; insulin 70/30, 36 units q.a.m. and q.p.m.; and lisinopril 10 mg daily. P.r.n. medications, Zofran 4 mg t.i.d. REVIEW OF SYSTEMS: CONSTITUTIONAL: The patient is with a history of weight loss and fever. EYES: The patient is with blurry vision. ENT: No difficulty swallowing. RESPIRATORY: The patient is with shortness of breath yesterday, but resolved now. CARDIOVASCULAR: The patient is with a history of chest pain, but resolved now. GASTROINTESTINAL: Please see history of present illness. GENITOURINARY: No dysuria. NEUROLOGIC: The patient is with a history of numbness and tingling in hands. PSYCHIATRIC: No depression or suicidal ideation. ENDOCRINE: The patient is with worsening thirst over the past few days. HEMATOLOGIC: No history of easy bleeding. PHYSICAL EXAMINATION: VITAL SIGNS: Temperature 37.1, pulse 101, respiratory rate 16, blood pressure is 127/70, and pulse ox 99% on room air. HEENT: No scleral icterus noted. No JVD noted. LUNGS: Clear to auscultation. CARDIAC: Tachycardia with no murmur. ABDOMEN: Soft. Mild epigastric tenderness. No rebound. No peritoneal signs. EXTREMITIES: No edema noted. DERMATOLOGY: No spider nevi noted. NEUROLOGIC: Cranial nerves grossly intact. Motor grossly intact. LABORATORIES: White blood cell count on admission 21.45, hemoglobin 14, hematocrit 40.8, and platelet count 305. Hematocrit this morning 32.9. Chemistry -- Sodium 140, potassium is 4.3, chloride is 112, BUN is 21, creatinine is 1.2, and blood sugar on admission 490. AST 66 and ALT 160. Total bilirubin 1.9. Lipase 48. IMAGING STUDIES: CT abdomen dated 04/25/2017. No bowel obstruction seen. Normal appendix. Mild hepatic steatosis. Normal appearing gallbladder. IMPRESSION: A 31-year-old male with a history of diabetes, admitted with ketoacidosis. I suspect that the patient's coffee-ground emesis stems from recurrent vomiting, perhaps a small Veronika-Clayton tear or perhaps gastritis. I would recommend that he be placed on to Protonix twice daily. Once the patient is stable from his ketoacidosis, we can plan an upper endoscopy perhaps tomorrow. I would also suggest further evaluation given his elevated liver enzymes with a right upper quadrant ultrasound to evaluate for evidence of gallstones not seen on CT scan. RECOMMENDATIONS: 1. Clear liquids today. 2. Continue with IV hydration as you are doing. 3. Protonix 40 mg twice daily. 4. Upper endoscopy to be scheduled with Dr. Vasquez on Thursday. 5. Right upper quadrant ultrasound to be ordered by the internal medicine service. Please call with any questions or concerns.
--- NOTE | 2017-04-26 11:07 | DIAGNOSTIC IMAGING REPORT ---
ABDOMEN LIMITED (US) CLINICAL HISTORY: 31 years-old Male presenting with evaluation for gallstones, mild hepatic steatosis. TECHNIQUE: Real-time grayscale and limited color Doppler ultrasound imaging of the abdomen limited to the right upper quadrant was performed. COMPARISON: 02/14/[address] from 04/25/2017. FINDINGS: Pancreas: Visualized portions of the pancreatic head and body normal. Liver: Mildly hyperechogenic parenchyma, although the right hemidiaphragm remains visible, likely indicating mild steatosis. The liver measures 17 cm in maximal sagittal dimension. No sonographic evidence of hepatic mass. Main portal vein patent with normal directional flow. Biliary: No intrahepatic biliary ductal dilatation. Common bile duct measures up to 5 mm in diameter. Gallbladder: No evidence of gallstones, gallbladder wall thickening, gallbladder distention, or pericholecystic fluid or inflammatory change. Right kidney: Normal in appearance and size, measuring 12.8 cm. No hydronephrosis. Ascites: Small amount of free fluid in Morison's pouch, nonspecific. IMPRESSION: 1. Normal gallbladder. No evidence of biliary ductal dilatation. 2. Hepatic steatosis. Electronically signed by: Chin Cooley M.D. 04/26/2017 11:05 AM Dictated Date/Time: 04/26/2017 11:03 AM
[2017-04-26 13:24] LABS: BUN/CREATININE RATIO 16.7 (10-20); CALCIUM 7.4 mg/dl (8.5-10.1); MAGNESIUM 2.3 mg/dl (1.8-2.4); PHOSPHORUS 1.6 mg/dl (2.5-4.9); POTASSIUM 4.4 mmol/L (3.5-5.1)
[2017-04-26] MEDS: POT PHOSPHATE MONOBASIC W/ SOD TAB PO SCH ×2 (16:51→21:13)
[2017-04-26] MEDS ORDERED: NSS + 20MEQ KCL 1000ML 1,000 ML IV SCH (19:00)
[2017-04-26 19:10] LABS: MEAN CELL VOLUME 90.9 fL (80-100); MEAN CORPUSCULAR HEMOGLOBIN 30.7 pg (25-34); MEAN CORPUSCULAR HGB CONC 33.8 g/dl (32-36); MEAN PLATELET VOLUME 10.1 fL (7.4-10.4); PLATELET COUNT 194 K/uL (130-400); RED BLOOD COUNT 3.52 M/uL (4.7-6.1); WHITE BLOOD COUNT 10.28 K/uL (4.8-10.8)
[2017-04-26 19:26] LABS: BUN/CREATININE RATIO 12.3 (10-20); CALCIUM 7.7 mg/dl (8.5-10.1); CREATININE 1.1 mg/dl (0.60-1.40); POTASSIUM 3.9 mmol/L (3.5-5.1)
[2017-04-26 19:36] LABS: BETA-HYDROXYBUTYRATE 1.06 mg/dL (0.2-2.81)
--- NOTE | 2017-04-26 21:42 | Progress Note ---
Subjective Date of Service: Apr 26, 2017. Subjective Pt evaluation today including: conversation w/ patient, physical exam, chart review, lab review, review of studies (liver u/s), conversation w/ call center consultant ( GI), review of inpatient medication list Pain: epigastric - still present - slightly better today PO Intake: npo Voiding: no voiding problems tele stable overnight his nausea is resolved; no emesis since the ER yesterday but still with pain no new complaints eating ice chips w/o worsening abd pain or other GI symptoms feels better overall Problem List Medical Problems: (1) Abdominal pain Status: Acute (2) Abdominal pain Status: Acute (3) Dehydration Status: Acute (4) DKA (diabetic ketoacidoses) Status: Acute (5) DKA (diabetic ketoacidoses) Status: Acute (6) Hyperglycemia Status: Acute (7) Intractable vomiting Status: Acute (8) Nausea Status: Acute (9) Vomiting Status: Acute Review of Systems Constitutional: No fever, No chills Respiratory: No shortness of breath Cardiac: No chest pain Abdomen: + pain Objective Vital Signs Date Time Temp Pulse Resp B/P (MAP) Pulse Ox O2 Delivery O2 Flow Rate FiO2 04/26/17 20:00 Room Air 04/26/17 19:48 36.8 84 20 121/73 (89) 96 Room Air 04/26/17 16:00 98 Nasal Cannula 2.0 04/26/17 16:00 36.8 87 18 132/79 (96) 98 Nasal Cannula 2.0 04/26/17 12:17 36.6 89 16 119/72 (88) 99 Nasal Cannula 2.0 04/26/17 12:00 99 Nasal Cannula 2.0 04/26/17 08:30 95 16 121/69 (86) 99 Nasal Cannula 2.0 04/26/17 08:00 99 Nasal Cannula 2.0 04/26/17 04:50 37.1 101 16 127/70 (89) 99 Nasal Cannula 2.0 04/26/17 04:00 Nasal Cannula 2.0 04/26/17 00:00 37.1 107 16 142/69 (93) 99 Nasal Cannula 2.0 04/26/17 00:00 Nasal Cannula 2.0 Physical Exam General Appearance: no apparent distress, + pertinent finding (looks better) ENT: pharynx normal (MMM) Neck: no JVD Respiratory/Chest: lungs clear, no respiratory distress, no accessory muscle use Cardiovascular: regular rate, rhythm, no gallop, no murmur Abdomen: normal bowel sounds, soft, no organomegaly, + tenderness (epigastric region) Extremities: no pedal edema, + swelling (right hand - due to IV fluids) Neurologic/Psychiatric: alert, oriented x 3 Skin: + pertinent finding (numerous tattoos) Laboratory Results Last 24 Hours Test 04/25/17 21:39 04/25/17 22:34 04/25/17 23:34 04/25/17 23:43 Bedside Glucose 257 mg/dl 257 mg/dl 225 mg/dl Hemoglobin 11.5 g/dL Hematocrit 32.9 % Sodium Level 140 mmol/L Potassium Level 4.7 mmol/L Chloride Level 110 mmol/L Carbon Dioxide Level 20 mmol/L Anion Gap 10.0 mmol/L Blood Urea Nitrogen 23 mg/dl Creatinine 1.40 mg/dl Est Creatinine Clear Calc Drug Dose 87.2 ml/min Estimated GFR () 77.6 Estimated GFR (Non- 66.9 BUN/Creatinine Ratio 16.3 Random Glucose 246 mg/dl Calcium Level 7.9 mg/dl Phosphorus Level 2.1 mg/dl Magnesium Level 2.4 mg/dl Test 04/26/17 00:26 04/26/17 00:33 04/26/17 01:34 04/26/17 03:39 Venous Blood pH 7.38 Bedside Glucose 220 mg/dl 211 mg/dl 165 mg/dl Test 04/26/17 03:53 04/26/17 05:35 04/26/17 06:12 04/26/17 06:27 Venous Blood pH 7.40 Sodium Level 140 mmol/L Potassium Level 4.3 mmol/L Chloride Level 112 mmol/L Carbon Dioxide Level 26 mmol/L Anion Gap 2.0 mmol/L Blood Urea Nitrogen 21 mg/dl Creatinine 1.20 mg/dl Est Creatinine Clear Calc Drug Dose 101.7 ml/min Estimated GFR () 93.5 Estimated GFR (Non- 80.7 BUN/Creatinine Ratio 17.5 Random Glucose 166 mg/dl Estimated Average Glucose 189 mg/dl Hemoglobin A1c 8.2 % Calcium Level 7.6 mg/dl Phosphorus Level 2.0 mg/dl Magnesium Level 2.4 mg/dl Bedside Glucose 114 mg/dl 148 mg/dl 156 mg/dl Test 04/26/17 07:33 04/26/17 07:52 04/26/17 08:27 04/26/17 09:35 Bedside Glucose 177 mg/dl 142 mg/dl 160 mg/dl Total Bilirubin 0.9 mg/dl Direct Bilirubin 0.2 mg/dl Aspartate Amino Transf (AST/SGOT) 38 U/L Alanine Aminotransferase (ALT/SGPT) 99 U/L Alkaline Phosphatase 57 U/L Total Protein 5.7 gm/dl Albumin 2.8 gm/dl Test 04/26/17 10:53 04/26/17 11:53 04/26/17 12:32 04/26/17 13:48 Bedside Glucose 175 mg/dl 177 mg/dl 166 mg/dl Venous Blood pH 7.37 Sodium Level 140 mmol/L Potassium Level 4.4 mmol/L Chloride Level 110 mmol/L Carbon Dioxide Level 22 mmol/L Anion Gap 8.0 mmol/L Blood Urea Nitrogen 17 mg/dl Creatinine 1.00 mg/dl Est Creatinine Clear Calc Drug Dose 122.0 ml/min Estimated GFR () 116.5 Estimated GFR (Non- 100.6 BUN/Creatinine Ratio 16.7 Random Glucose 213 mg/dl Calcium Level 7.4 mg/dl Phosphorus Level 1.6 mg/dl Magnesium Level 2.3 mg/dl Chemistry Specimen Hemolysis Test 04/26/17 16:06 04/26/17 16:55 04/26/17 18:02 04/26/17 18:50 Bedside Glucose 334 mg/dl 325 mg/dl 360 mg/dl White Blood Count 10.28 K/uL Red Blood Count 3.52 M/uL Hemoglobin 10.8 g/dL Hematocrit 32.0 % Mean Corpuscular Volume 90.9 fL Mean Corpuscular Hemoglobin 30.7 pg Mean Corpuscular Hemoglobin Concent 33.8 g/dl RDW Standard Deviation 42.9 fL RDW Coefficient of Variation 12.9 % Platelet Count 194 K/uL Mean Platelet Volume 10.1 fL Sodium Level 137 mmol/L Potassium Level 3.9 mmol/L Chloride Level 106 mmol/L Carbon Dioxide Level 25 mmol/L Anion Gap 6.0 mmol/L Blood Urea Nitrogen 14 mg/dl Creatinine 1.10 mg/dl Est Creatinine Clear Calc Drug Dose 110.9 ml/min Estimated GFR () 103.9 Estimated GFR (Non- 89.6 BUN/Creatinine Ratio 12.3 Random Glucose 342 mg/dl Calcium Level 7.7 mg/dl Beta-Hydroxybutyric Acid 1.06 mg/dL Test 04/26/17 19:08 04/26/17 20:13 04/26/17 21:10 Bedside Glucose 308 mg/dl 270 mg/dl 237 mg/dl Assessment and Plan 31yo male with T1DM presenting with severe upper abdominal pain, hematemesis ( gastric occult positive in the ER), acute kidney injury, and DKA. 1. DKA - resolved. Will NOT transition to SC insulin due to his ongoing upper GI issues and limited oral intake. Leave on insulin drip per protocol. Will lower fluid rate. Can d/c q4h labs. Change to BID labs. 2. acute kidney injury - resolving. Continue hydration. 3. hematemesis - he could have gastritis, PUD, etc. GI consult appreciated; NPO after MN for EGD tomorrow AM. Cont IV PPI drip. I believe that the cause of his ongoing abdominal pain is from an issue in the stomach/esophagus not the DKA at this point. Recheck H/H tonight and again in AM. 4. hyperkalemia - 2nd to DKA - resolved. 5. DVT proph - SCDs; chemical means contraindicated due to #3. 6. abnormal LFTs - improving. HepC ab is +. HepC RNA is pending. Abnormal LFTs 2nd to HepC? Patient aware that prelim test is +. RUQ u/s is negative and recent HIDA scan also normal. 7. leukocytosis - likely 2nd to DKA; resolved. Blood cx's thus far negative. Doubt infectious etiology. 8. FEN - lower fluid rate to 100cc/hr. Cont KCl supplementation. Labs tonight and in AM. Clears until MN tonight then NPO for EGD on Thursday. 9. hypophosphatemia - replace with PO phosphorus. Continued [facility] stay due to: inadequate po fluid intake, inadequate oral pain control, multiple IV medications needed Discharge planning: other (detention )
[2017-04-26] MEDS ORDERED: NURSING VERBAL MED ORDER ONE (22:45)
[2017-04-27] VITALS (10 sets, daily range): BP systolic 129–156; BP diastolic 76–91; PULSE 75–94; TEMP 36.7–36.9; O2SAT 96–98; BMI 27.8
[2017-04-27] MEDS: MoRPHine SULFATE 2 MG/ML CARP IV PRN ×6 (00:58→21:20)
[2017-04-27] MEDS: INSULIN REGULAR 250 UNITS in SODIUM CHLORIDE 0.9% 250ML 250 ML IV SCH ×4 (01:33→06:29)
[2017-04-27] MEDS: PANTOprazole INJ 40 MG in DEXTROSE 5% 100ML IV SCH ×3 (02:09→12:56)
[2017-04-27] MEDS ORDERED: NURSING VERBAL MED ORDER ONE (02:30)
[2017-04-27] MEDS: D5W AND 1/2NSS + 20MEQ KCL 1,000 ML IV SCH ×2 (02:35→21:14)
[2017-04-27] MEDS: ONDANSETRON INJ 2 MG/ML 2 ML VIAL IV PRN ×2 (04:27→13:12)
[2017-04-27 07:22] LABS: BUN/CREATININE RATIO 8.2 (10-20); CALCIUM 7.9 mg/dl (8.5-10.1); CREATININE 0.93 mg/dl (0.60-1.40); PHOSPHORUS 1.9 mg/dl (2.5-4.9)
[2017-04-27] MEDS: INSULIN ASPART 100 UNITS/ML 3 ML PEN SC SCH ×4 (07:48→21:00)
[2017-04-27] MEDS: POT PHOSPHATE MONOBASIC W/ SOD TAB PO SCH ×4 (07:49→21:12)
[2017-04-27] MEDS ORDERED: LIDOCAINE HCL 2% 2 ML VIAL (20MG/ML) ONE (11:16)
[2017-04-27] MEDS ORDERED: MIDAZOLAM HCL 1 MG/ML 2ML VIAL ONE (11:16)
[2017-04-27] MEDS ORDERED: PROPOFOL IV EMULSION 10 MG/ML 20 ML VIAL IV ONE (11:16)
[2017-04-27] MEDS ORDERED: FENTANYL CITRATE INJ 50 MCG/1 ML 2 ML VIAL ONE (11:17)
--- NOTE | 2017-04-27 11:22 | History & Physical Bridge Note ---
H&P Re-Evaluation Bridge Note: I have examined the patient, reviewed the History & Physical and in the interval since the performance of the History & Physical I have noted the following changes of clinical significance: No changes noted
--- NOTE | 2017-04-27 11:50 | GI REPORT ---
Procedure Date: 04/27/2017 11:27 AM Procedure: Upper GI endoscopy Indications: Coffee-ground emesis Medicines: Propofol per Anesthesia Complications: No immediate complications. Estimated blood loss: None. Estimated Blood Loss: Estimated blood loss: none. Procedure: Pre-Anesthesia Assessment: - Prior to the procedure, a History and Physical was performed, and patient medications, allergies and sensitivities were reviewed. The patient's tolerance of previous anesthesia was reviewed. - ASA Grade Assessment: II - A patient with mild systemic disease. After obtaining informed consent, the endoscope was passed under direct vision. Throughout the procedure, the patient's blood pressure, pulse, and oxygen saturations were monitored continuously. The Scope was introduced through the mouth, and advanced to the third part of duodenum. The upper GI endoscopy was accomplished with ease. The patient tolerated the procedure well. Findings: The upper third of the esophagus, middle third of the esophagus and lower third of the esophagus were normal. The Z-line was irregular and was found 40 cm from the incisors. Biopsies were taken with a cold forceps for histology. Moderate inflammation characterized by erythema was found in the gastric fundus. Biopsies were taken with a cold forceps in the entire examined stomach for Helicobacter pylori testing. The examined duodenum was normal. Impression: - Normal upper third of esophagus, middle third of esophagus and lower third of esophagus. - Z-line irregular, 40 cm from the incisors. Biopsied. - Acute gastritis involving the fundus consistent with recent vomiting. - Normal examined duodenum. - Biopsies were taken with a cold forceps for Helicobacter pylori testing. - There was no evidence of recent hemorrhage. Recommendation: - [facility] to [facility] for [facility] care. Geoff Vasquez M.D. Geoff Vasquez MD 04/27/2017 11:49:35 AM This report has been signed electronically. Note Initiated On: 04/27/2017 11:27 AM I attest to the content of the Intraoperative Record and orders documented therein, exceptions below
[2017-04-27] MEDS ORDERED: PHARMACY GLYCEMIC MGMT CONSULT PRN (14:02)
[2017-04-27] MEDS ORDERED: INSULIN GLARGINE SOLOSTAR 100 UNITS/ML 3 ML PEN SC ONE (15:45)
--- NOTE | 2017-04-27 16:00 | Pharmacy Progress Note ---
Glycemic Control Intl Consult Date of Service Apr 27, 2017. Scope Glycemic Pharmacist consulted by Dr Shepard on 04/27/17 for glycemic control and to write orders per [facility] inpatient glycemic control protocol Objective Weight (Kilograms): 95.500 Accuchecks BSG (last 24hrs): Test 04/26/17 16:06 04/26/17 16:55 04/26/17 18:02 04/26/17 18:50 Bedside Glucose 334 mg/dl (70-99) 325 mg/dl (70-99) 360 mg/dl (70-99) Random Glucose 342 mg/dl (70-99) Test 04/26/17 19:08 04/26/17 20:13 04/26/17 21:10 04/26/17 22:10 Bedside Glucose 308 mg/dl (70-99) 270 mg/dl (70-99) 237 mg/dl (70-99) 218 mg/dl (70-99) Test 04/26/17 23:13 04/27/17 01:27 04/27/17 02:11 04/27/17 02:27 Bedside Glucose 191 mg/dl (70-99) 133 mg/dl (70-99) 113 mg/dl (70-99) 117 mg/dl (70-99) Test 04/27/17 02:43 04/27/17 02:57 04/27/17 03:12 04/27/17 03:24 Bedside Glucose 108 mg/dl (70-99) 120 mg/dl (70-99) 141 mg/dl (70-99) 152 mg/dl (70-99) Test 04/27/17 04:23 04/27/17 05:26 04/27/17 06:21 04/27/17 06:31 Bedside Glucose 193 mg/dl (70-99) 211 mg/dl (70-99) 195 mg/dl (70-99) Random Glucose 205 mg/dl (70-99) Test 04/27/17 07:28 04/27/17 09:54 04/27/17 12:02 04/27/17 14:01 Bedside Glucose 174 mg/dl (70-99) 193 mg/dl (70-99) 228 mg/dl (70-99) 189 mg/dl (70-99) Laboratory Data (last 24hrs) Test 04/26/17 18:50 04/27/17 06:31 04/27/17 14:32 Anion Gap 6.0 mmol/L 6.0 mmol/L BUN/Creatinine Ratio 12.3 8.2 Blood Urea Nitrogen 14 mg/dl 8 mg/dl Creatinine 1.10 mg/dl 0.93 mg/dl Potassium Level 3.9 mmol/L 4.0 mmol/L Sodium Level 137 mmol/L 140 mmol/L White Blood Count 10.28 K/uL HbA1c Test 04/26/17 03:53 Hemoglobin A1c 8.2 % (4.5-5.6) H Recent Pertinent Medications Outpatient Anti-diabetic Regimen: * Humulin 70/30 40 units qam + 36 units qpm, regular SSI Assessment & Plan ASSESSMENT: * 31 yr old T1DM male admitted with DKA, acute kidney injury and suspected GI bleed. Patient NPO - upper GI endoscopy today. * Patient has been maintained on IV insulin infusion. Pharmacy was consulted this afternoon to transition patient to SQ basal/bolus. * Patient takes 76 units of Humulin 70/30 per day plus regular sliding scale ( 53 units of basal per day). * ADA & AACE recommend a goal blood sugar range 140-180 mg/dl for the majority of critically ill & non-critically ill patients. However, more stringent targets may be selected in individual cases. PLAN FOR INPATIENT GLYCEMIC CONTROL: * Transition IV insulin infusion to SQ regimen * Tighten goal Range to 140 - 180 mg/dl * D/C IV Insulin Infusion when held per calculator or 6 hrs after first Lantus dose given, whichever happens sooner. * Basal insulin * Lantus 32 units SQ x 1 dose now, then * Lantus 16-24 units SQ BID * Correctional Insulin with NOVOLOG /per scale ACHS or Q6hrs while NPO * Goal Range: Low 140 mg/dL - High 180 mg/dL * Correction Factor: 15 mg/dL/unit * Nutritional / Prandial insulin per carb ratio of 1 unit per 6 grams CHO consumed * Add overnight checks with coverage at 00 and 04 LOOKING AHEAD TO DISCHARGE: * Please see Wire[facility] note * Recommend changing to Lantus plus regular SSI and meal coverage on discharge ( based on [facility] formulary) * exact doses to be determined * Please note that the plan above was derived based on current level of insulin resistance and hospital stress. These recommendations are appropriate for inpatient admission only. Plan of care upon discharge will need to be reassessed to avoid potential outpatient hypo/hyperglycemia. Thank you.
--- NOTE | 2017-04-27 17:44 | Progress Note ---
Subjective Date of Service: Apr 27, 2017. Subjective this pt is still with nausea and abdominal pain which is more focal epigastric and right upper quadrant. His EGD today did not show anything by gastritis. His diabetes has been in good control with insulin drip will transition to basal bolus and increase diet Problem List Medical Problems: (1) Abdominal pain Status: Acute (2) Abdominal pain Status: Acute (3) Dehydration Status: Acute (4) DKA (diabetic ketoacidoses) Status: Acute (5) DKA (diabetic ketoacidoses) Status: Acute (6) Hyperglycemia Status: Acute (7) Intractable vomiting Status: Acute (8) Nausea Status: Acute (9) Vomiting Status: Acute Review of Systems Constitutional: No fever, No chills Respiratory: No cough, No sputum Cardiac: No chest pain, No edema Abdomen: + pain, + nausea Objective Vital Signs Date Time Temp Pulse Resp B/P (MAP) Pulse Ox O2 Delivery O2 Flow Rate FiO2 04/27/17 07:17 36.7 84 16 146/88 (107) 97 04/27/17 04:41 36.9 89 16 142/81 (101) 96 Room Air 04/27/17 04:00 Room Air 04/27/17 00:08 36.9 94 20 129/77 (94) 98 Room Air 04/27/17 00:00 Room Air 04/26/17 20:00 Room Air 04/26/17 19:48 36.8 84 20 121/73 (89) 96 Room Air 04/26/17 16:00 98 Nasal Cannula 2.0 04/26/17 16:00 36.8 87 18 132/79 (96) 98 Nasal Cannula 2.0 04/26/17 12:17 36.6 89 16 119/72 (88) 99 Nasal Cannula 2.0 04/26/17 12:00 99 Nasal Cannula 2.0 04/26/17 08:30 95 16 121/69 (86) 99 Nasal Cannula 2.0 04/26/17 08:00 99 Nasal Cannula 2.0 Physical Exam General Appearance: WD/WN, + mild distress Eyes: PERRL, EOMI Respiratory/Chest: chest non-tender, lungs clear, normal breath sounds Cardiovascular: regular rate, rhythm, no murmur Abdomen: + guarding, + tenderness Extremities: no pedal edema, no calf tenderness Neurologic/Psychiatric: alert, oriented x 3 Laboratory Results Last 24 Hours Test 04/26/17 07:52 04/26/17 08:27 04/26/17 09:35 04/26/17 10:53 Total Bilirubin 0.9 mg/dl Direct Bilirubin 0.2 mg/dl Aspartate Amino Transf (AST/SGOT) 38 U/L Alanine Aminotransferase (ALT/SGPT) 99 U/L Alkaline Phosphatase 57 U/L Total Protein 5.7 gm/dl Albumin 2.8 gm/dl Bedside Glucose 142 mg/dl 160 mg/dl 175 mg/dl Test 04/26/17 11:53 04/26/17 12:32 04/26/17 13:48 04/26/17 16:06 Bedside Glucose 177 mg/dl 166 mg/dl 334 mg/dl Venous Blood pH 7.37 Sodium Level 140 mmol/L Potassium Level 4.4 mmol/L Chloride Level 110 mmol/L Carbon Dioxide Level 22 mmol/L Anion Gap 8.0 mmol/L Blood Urea Nitrogen 17 mg/dl Creatinine 1.00 mg/dl Est Creatinine Clear Calc Drug Dose 122.0 ml/min Estimated GFR () 116.5 Estimated GFR (Non- 100.6 BUN/Creatinine Ratio 16.7 Random Glucose 213 mg/dl Calcium Level 7.4 mg/dl Phosphorus Level 1.6 mg/dl Magnesium Level 2.3 mg/dl Chemistry Specimen Hemolysis Test 04/26/17 16:55 04/26/17 18:02 04/26/17 18:50 04/26/17 19:08 Bedside Glucose 325 mg/dl 360 mg/dl 308 mg/dl White Blood Count 10.28 K/uL Red Blood Count 3.52 M/uL Hemoglobin 10.8 g/dL Hematocrit 32.0 % Mean Corpuscular Volume 90.9 fL Mean Corpuscular Hemoglobin 30.7 pg Mean Corpuscular Hemoglobin Concent 33.8 g/dl RDW Standard Deviation 42.9 fL RDW Coefficient of Variation 12.9 % Platelet Count 194 K/uL Mean Platelet Volume 10.1 fL Sodium Level 137 mmol/L Potassium Level 3.9 mmol/L Chloride Level 106 mmol/L Carbon Dioxide Level 25 mmol/L Anion Gap 6.0 mmol/L Blood Urea Nitrogen 14 mg/dl Creatinine 1.10 mg/dl Est Creatinine Clear Calc Drug Dose 110.9 ml/min Estimated GFR () 103.9 Estimated GFR (Non- 89.6 BUN/Creatinine Ratio 12.3 Random Glucose 342 mg/dl Calcium Level 7.7 mg/dl Beta-Hydroxybutyric Acid 1.06 mg/dL Test 04/26/17 20:13 04/26/17 21:10 04/26/17 22:10 04/26/17 23:13 Bedside Glucose 270 mg/dl 237 mg/dl 218 mg/dl 191 mg/dl Test 04/27/17 01:27 04/27/17 02:11 04/27/17 02:27 04/27/17 02:43 Bedside Glucose 133 mg/dl 113 mg/dl 117 mg/dl 108 mg/dl Test 04/27/17 02:57 04/27/17 03:12 04/27/17 03:24 04/27/17 04:23 Bedside Glucose 120 mg/dl 141 mg/dl 152 mg/dl 193 mg/dl Test 04/27/17 05:26 04/27/17 06:21 04/27/17 06:31 04/27/17 07:28 Bedside Glucose 211 mg/dl 195 mg/dl 174 mg/dl Hemoglobin 10.7 g/dL Sodium Level 140 mmol/L Potassium Level 4.0 mmol/L Chloride Level 107 mmol/L Carbon Dioxide Level 27 mmol/L Anion Gap 6.0 mmol/L Blood Urea Nitrogen 8 mg/dl Creatinine 0.93 mg/dl Est Creatinine Clear Calc Drug Dose 131.2 ml/min Estimated GFR () 127.2 Estimated GFR (Non- 109.8 BUN/Creatinine Ratio 8.2 Random Glucose 205 mg/dl Calcium Level 7.9 mg/dl Phosphorus Level 1.9 mg/dl Magnesium Level 2.0 mg/dl Assessment and Plan 31yo DKA/T1DM presenting with severe upper abdominal pain, hematemesis (gastric occult positive in the ER), acute kidney injury DKA - resolved. Transition from insulin drip to basal bolus acute kidney injury - improving with IV fluid Abdominal pain/hematemesis -iv protonix, gastritis seen on EGD 04/27 add Carafate to Protonix additional antiemetics could discomfort be from hepatic steatosis, or gastroparesis . Acute anemia, is multifactoral, blood loss and dilutional, hgb dropped 4 gms Hyperkalemia /hypophosphatemia replete DVT proph - SCDs; chemical due to concern for GI bleeding abnormal LFTs - improving. HepC ab is +.HepC RNA is pending. RUQ u/s is negative and recent HIDA scan also normal. leukocytosis -Blood cx's thus far negative. Continued [facility] stay due to: multiple IV medications needed
[2017-04-27] MEDS: PROMETHAZINE HCL INJ 12.5 MG in SODIUM CHLORIDE 0.9% 50ML 50 ML IV PRN ×2 (18:33→22:32)
[2017-04-27] MEDS: SUCRALFATE 1 GM TAB PO SCH (21:13)
[2017-04-27] MEDS ORDERED: DC IV INSULIN INFUSION ONE (21:45)
[2017-04-28] MEDS: MoRPHine SULFATE 2 MG/ML CARP IV PRN ×4 (00:28→12:34)
[2017-04-28] MEDS: INSULIN ASPART 100 UNITS/ML 3 ML PEN SC SCH ×4 (00:35→12:28)
[2017-04-28 04:00] VITALS: BP 136/83; PULSE 78; TEMP 36.7; O2SAT 97
[2017-04-28] MEDS ORDERED: INSULIN GLARGINE SOLOSTAR 100 UNITS/ML 3 ML PEN SC SCH (07:00)
[2017-04-28 07:11] VITALS: BP 137/85; PULSE 79; TEMP 36.8; O2SAT 97
[2017-04-28] MEDS: SUCRALFATE 1 GM TAB PO SCH ×2 (07:54→12:29)
[2017-04-28] MEDS: POT PHOSPHATE MONOBASIC W/ SOD TAB PO SCH ×2 (07:54→12:29)
[2017-04-28] MEDS: ONDANSETRON INJ 2 MG/ML 2 ML VIAL IV PRN (07:54)
[2017-04-28 08:41] LABS: HEMATOCRIT 35.1 % (42-52); MEAN CELL VOLUME 90.5 fL (80-100); MEAN CORPUSCULAR HEMOGLOBIN 31.4 pg (25-34); MEAN CORPUSCULAR HGB CONC 34.8 g/dl (32-36); MEAN PLATELET VOLUME 9.9 fL (7.4-10.4); PLATELET COUNT 174 K/uL (130-400); RED BLOOD COUNT 3.88 M/uL (4.7-6.1)
[2017-04-28] MEDS ORDERED: PANTOprazole SOD 40 MG TAB PO SCH (09:00)
[2017-04-28 09:08] LABS: BUN/CREATININE RATIO 5.1 (10-20); CALCIUM 8.3 mg/dl (8.5-10.1); CREATININE 0.81 mg/dl (0.60-1.40); POTASSIUM 4.2 mmol/L (3.5-5.1)
[2017-04-28 09:31] VITALS: O2SAT 97
--- NOTE | 2017-04-28 10:57 | Gastroenterology Progress Note ---
Progress Note Date of Service: Apr 28, 2017 Subjective Pt evaluation today including: conversation w/ patient, physical exam, chart review Pt seen and evaluated, chart reviewed. Tolerated EGD yesterday, on PPI and Carafate. Still w/ mild nausea, no vomiting. Some epigastric pain. Normal RUQ and HIDA. HCV + w/ RNA pending. Review of Systems Constitutional: No fever, No chills Respiratory: No cough Cardiac: No chest pain Abdomen: + pain, + nausea, No vomiting, No diarrhea, No constipation Medications Current Inpatient Medications Medications (Trade) Dose Ordered Sig/Madai Route Start Time Stop Time Status Last Admin Dose Admin Glucose (Glucose 40% Gel) UD PRN PO 04/25/17 14:45 05/25/17 14:44 Glucose (Glucose Chew Tab) 1 tabs UD PRN PO 04/25/17 14:45 05/25/17 14:44 04/28/17 06:34 1 TABS Dextrose (Dextrose 50% 50ML Syringe) 50 ml UD PRN IV 04/25/17 14:45 05/25/17 14:44 04/26/17 05:54 50 ML Glucagon (Glucagon Inj) 1 mg UD PRN SQ 04/25/17 14:45 05/25/17 14:44 Ondansetron HCl (Zofran Inj) 4 mg Q6H PRN IV 04/25/17 15:15 05/25/17 15:14 04/28/17 07:54 4 MG Morphine Sulfate (MoRPHine SULFATE INJ) 2 mg Q3H PRN IV 04/25/17 15:45 05/09/17 15:44 04/28/17 09:27 2 MG Potassium/ Phosphorus/Sodium (Phospha 250 Neutral 155-852-130 Mg) 1 tab QID PO 04/26/17 17:00 05/26/17 16:59 04/28/17 07:54 1 TAB Potassium Chloride/Dextrose/ Sod Cl 1,000 ml @ 50 mls/hr Q20H IV 04/27/17 02:30 05/27/17 02:29 04/27/17 21:14 50 MLS/HR Miscellaneous Information (Consult Glycemic Management Pharmacy) 1 ea UD PRN N/A 04/27/17 14:02 05/27/17 14:01 Pantoprazole Sodium (Protonix Tab) 40 mg QAM PO 04/28/17 09:00 05/28/17 08:59 04/28/17 07:54 40 MG Insulin Glargine (Lantus Solostar Pen) SEE PROTOCOL TEXT Q12 SC 04/28/17 07:00 05/28/17 06:59 04/28/17 08:49 20 UNITS Insulin Aspart (novoLOG ASPART) SLIDING SCALE If CARB RA... ACHS SC 04/27/17 16:30 05/27/17 16:29 04/28/17 08:47 7 UNITS Sucralfate (Carafate Tab) 1 gm QID PO 04/27/17 21:00 05/27/17 20:59 04/28/17 07:54 1 GM Promethazine HCl 12.5 mg/Sodium Chloride 50.5 ml @ 204 mls/hr Q6H PRN IV 04/27/17 17:45 05/27/17 17:44 04/27/17 22:32 204 MLS/HR Objective Vital Signs Date Time Temp Pulse Resp B/P (MAP) Pulse Ox O2 Delivery O2 Flow Rate FiO2 04/28/17 09:31 97 Room Air 04/28/17 08:00 Room Air 04/28/17 07:11 36.8 79 14 137/85 (102) 97 Room Air 04/28/17 04:00 Room Air 04/28/17 04:00 36.7 78 18 136/83 (100) 97 Room Air 04/27/17 23:59 Room Air 04/27/17 23:59 36.7 75 18 129/76 (93) 96 Room Air 04/27/17 20:00 97 Room Air 04/27/17 19:49 36.8 80 19 135/81 (99) 97 Room Air 04/27/17 16:00 97 Room Air 04/27/17 15:30 36.8 75 18 143/91 (108) 97 04/27/17 14:03 36.8 82 18 143/89 (107) 97 04/27/17 12:30 Room Air 04/27/17 11:58 82 18 148/87 (107) 97 Room Air 04/27/17 11:49 87 18 144/89 (107) 97 Room Air 04/27/17 10:56 36.8 84 18 156/88 (110) 98 Room Air Physical Exam General Appearance: no apparent distress Eyes: PERRL ENT: hearing grossly normal Neck: no adenopathy Respiratory/Chest: lungs clear, normal breath sounds Cardiovascular: regular rate, rhythm, no edema Abdomen: normal bowel sounds, soft Neurologic/Psych: alert, normal mood/affect, oriented x 3 Skin: normal color Laboratory Results Last 24 Hours Test 04/27/17 12:02 04/27/17 14:01 04/27/17 16:04 04/27/17 20:35 Bedside Glucose 228 mg/dl 189 mg/dl 178 mg/dl 85 mg/dl Test 04/27/17 21:49 04/27/17 23:19 04/28/17 04:22 04/28/17 06:20 Bedside Glucose 60 mg/dl 249 mg/dl 73 mg/dl 74 mg/dl Test 04/28/17 07:30 04/28/17 08:26 Bedside Glucose 134 mg/dl White Blood Count 4.90 K/uL Red Blood Count 3.88 M/uL Hemoglobin 12.2 g/dL Hematocrit 35.1 % Mean Corpuscular Volume 90.5 fL Mean Corpuscular Hemoglobin 31.4 pg Mean Corpuscular Hemoglobin Concent 34.8 g/dl RDW Standard Deviation 41.6 fL RDW Coefficient of Variation 12.7 % Platelet Count 174 K/uL Mean Platelet Volume 9.9 fL Sodium Level 143 mmol/L Potassium Level 4.2 mmol/L Chloride Level 107 mmol/L Carbon Dioxide Level 30 mmol/L Anion Gap 6.0 mmol/L Blood Urea Nitrogen 4 mg/dl Creatinine 0.81 mg/dl Est Creatinine Clear Calc Drug Dose 150.7 ml/min Estimated GFR () 138.2 Estimated GFR (Non- 119.3 BUN/Creatinine Ratio 5.1 Random Glucose 150 mg/dl Calcium Level 8.3 mg/dl Assessment and Plan Diet as tolerated PPI once daily Carafate four times daily No NSAIDs HCV + with pending RNA GI to sign off, no GI contraindication to discharge. ATTESTATION: I have performed a history and physical examination of this patient and reviewed the electronic record. Specifically, on physical examinationthere is no evidence of active gastrointestinal bleeding. I have discussed the case with RUTH Gardner. The above note reflects my findings, conclusions, and recommendations. Geoff Vasquez MD
[2017-04-28 11:05] VITALS: BP 146/92; PULSE 81; TEMP 37; O2SAT 96
--- NOTE | 2017-04-28 11:22 | Pharmacy Progress Note ---
Glycemic Control Progress Note Date of Service Apr 28, 2017. Scope Glycemic Pharmacist consulted for glycemic control to write orders per [facility] inpatient glycemic control protocol. Objective Accuchecks BSG (last 24hrs): Test 04/27/17 12:02 04/27/17 14:01 04/27/17 16:04 04/27/17 20:35 Bedside Glucose 228 mg/dl (70-99) 189 mg/dl (70-99) 178 mg/dl (70-99) 85 mg/dl (70-99) Test 04/27/17 21:49 04/27/17 23:19 04/28/17 04:22 04/28/17 06:20 Bedside Glucose 60 mg/dl (70-99) 249 mg/dl (70-99) 73 mg/dl (70-99) 74 mg/dl (70-99) Test 04/28/17 07:30 04/28/17 08:26 Bedside Glucose 134 mg/dl (70-99) Random Glucose 150 mg/dl (70-99) HbA1c: Test 04/26/17 03:53 Hemoglobin A1c 8.2 % (4.5-5.6) H Recent Pertinent Medications Inpatient Anti-diabetic Regimen: * IV insulin infusion - discontinued 04/27 PM * Basal insulin * Lantus 32 units SQ x 1, then Lantus per scale (16-24) units SQ BID * Correctional Insulin with NOVOLOG /per scale ACHS * Goal Range: Low 140 mg/dL - High 180 mg/dL * Correction Factor: 15 mg/dL/unit * Nutritional / Prandial insulin per carb ratio of 1 unit per 6 grams CHO consumed Outpatient Anti-Diabetic Meds Humulin 70/30 40 units qam + 36 units qpm, regular SSI Assessment & Plan ASSESSMENT: * 31 yr old T1DM male admitted with DKA, acute kidney injury and suspected GI bleed. * Pt s/p upper GI endoscopy on 04/27 - diet advanced to clear liquids/T1DM * Patient takes 76 units of Humulin 70/30 per day plus regular sliding scale ( 53 units of basal per day). Per discussion with Custodial Supervisor, the patient does admit to skipping/refusing doses due to fluctuating BSGs (40's- 300's) and fear of hypoglycemia. Patient has been on Lantus in the past and requests to resume this. [facility] does stock Lantus. They do not stock Novolog so regular insulin will need to be utilized for correction and meal coverage. Please see CDE note for complete details. * Fasting BSG of 134 mg/dL is at goal - continue Lantus per scale until basal needs are determined. * Post prandial BSGs are fluctuating * BSG tends to drop below goal after patient is administered Novolog dose, then become elevated at time of next check * Loosen CF to avoid overcorrection PLAN FOR INPATIENT GLYCEMIC CONTROL: * Basal insulin * Lantus 16-20 units SQ BID * 16 units for BSG less than 180 mg/dL * 20 units for BSG 180 mg/dL or more * Correctional Insulin with NOVOLOG /per scale ACHS * Goal Range: Low 140 mg/dL - High 180 mg/dL * Correction Factor: 20 mg/dL/unit * Nutritional / Prandial insulin per carb ratio of 1 unit per 7 grams CHO consumed * Continue overnight checks with coverage at 00 and 04 LOOKING AHEAD TO DISCHARGE: * Please see Custodial Supervisor note * Recommend changing to Lantus plus regular SSI and meal coverage on discharge ( based on [facility] formulary) * exact doses to be determined * Please note that the plan above was derived based on current level of insulin resistance and hospital stress. These recommendations are appropriate for inpatient admission only. Plan of care upon discharge will need to be reassessed to avoid potential outpatient hypo/hyperglycemia. Thank you.
[2017-04-28] MEDS ORDERED: PRT40 PO (13:24)
[2017-04-28] MEDS ORDERED: SUCR1TAB PO (13:24)
[2017-04-28] MEDS ORDERED: NVLGIPEN SC (13:24)
[2017-04-28] MEDS ORDERED: INSDGIPEN SC (13:24)
--- NOTE | 2017-04-28 13:25 | Discharge Instructions ---
Discharge Instructions Date of Service Apr 28, 2017. Admission Reason for Admission: DKA Discharge Discharge Diagnosis / Problem: DKA, gastritis, nausea Discharge Goals Goal(s): Diagnostic testing, Therapeutic intervention Activity Recommendations Activity Limitations: resume your previous activity . Current Hospital Diet Patient's current hospital diet: Clear Liquid Diet, Diabetes Type 1 Diet Discharge Diet Recommended Diet: Diabetes Type 1 Diet Procedures Procedures Performed: EGD with biopsy Pending Studies Studies pending at discharge: no Laboratory Results Hemoglobin A1c Test 04/26/17 03:53 Range/Units Estimated Average Glucose 189 mg/dl Hemoglobin A1c 8.2 H 4.5-5.6 % Medical Emergencies . Who to Call and When: Medical Emergencies: If at any time you feel your situation is an emergency, please call 911 immediately. . Non-Emergent Contact Non-Emergency issues call your: Primary Care Provider Call Non-Emergent contact if: temperature is above 101, your pain is unusual for you . . "Provider Documentation" section prepared by Carlitos Shepard. . VTE Core Measure Inpt VTE Proph given/why not?: SCD's, Contraindicated
[2017-04-28] MEDS ORDERED: MAGNESIUM HYDROXIDE SUSP 30 ML UDC PO ONE (13:30)
[2017-04-28 13:36] VITALS: BP 146/92; PULSE 81; TEMP 37; O2SAT 96
--- NOTE | 2017-04-28 13:36 | Discharge Summary ---
Discharge Summary Date of Service Apr 28, 2017. Discharge Summary Admission Date: Apr 25, 2017 at 16:23 Discharge Date: Apr 28, 2017 Discharge Disposition: Home Principal Diagnosis: dka, gastritis, persistenty nausea Medication Reconciliation New Medications: Insulin Aspart (Novolog Flexpen) 100 Units/Ml Inj 0 UNITS SC ACHS, #1 UNIT Insulin Glargine (Lantus Solostar) 100 Unit/Ml Inj 0 UNITS SC Q12, #1 PEN Pantoprazole (Pantoprazole Sodium) 40 Mg Tab 40 MG PO QAM, #30 TAB Sucralfate (Sucralfate) 1 Gm Tab 1 GM PO QID, #24 TAB Continued Medications: Atorvastatin (Lipitor) 20 Mg Tab 20 MG PO DAILY Dextrose (Diabetic Use) (Glucose) 40 % Gel 1-2 TUBE PRN Lisinopril (Prinivil) 10 Mg Tab 10 MG PO DAILY Ondansetron Hcl (Zofran) 4 Mg Tab 4 MG PO TID PRN for Nausea or Vomiting Discontinued Medications: Insulin Human Isophan/Regular (Humulin 70/30) Inj 36 UNITS SC QPM Insulin Human Regular (Humulin R) 100 Units/Ml Susp SC INJECT PER SLIDING SCALE 150-200 = 2 UNITS 201-280 = 4 UNITS 281-330 = 6 UNITS 331-380 = 8 UNITS 381-430 = 10 UNITS > 430 CALL Insulin Isophan/Regular (Humulin 70/30) Susp 40 UNITS SC QAM Discharge Exam Review of Systems: Constitutional: No fever, No chills, No weakness Respiratory: No cough, No sputum Cardiovascular: No chest pain, No orthopnea Abdomen: + nausea, + constipation, No diarrhea Physical Exam: General Appearance: WD/WN, + mild distress Neck: supple, no JVD Respiratory/Chest: chest non-tender, lungs clear, normal breath sounds Cardiovascular: regular rate, rhythm, no murmur Abdomen / GI: normal bowel sounds, soft, + tenderness Extremities: no pedal edema, normal range of motion Neurologic/Psychiatric: alert, oriented x 3 Hospital Course 31yo DKA/T1DM presenting with severe upper abdominal pain, hematemesis (gastric occult positive in the ER), acute kidney injury DKA - resolved. Transition from insulin drip to basal bolus, glycemic pharmacy is recommending lantus and humalog and are available for questions if adjustment is required. [phone] x [phone] acute kidney injury - resolved Abdominal pain/hematemesis - gastritis seen on EGD 04/27 add Carafate to Protonix additional antiemetics could discomfort be from hepatic steatosis, or gastroparesis, will recommend continued outpt eval if symptoms persist Acute anemia, is multifactoral, blood loss and dilutional,has rebounded nicely to 12 gms before discharge Hyperkalemia /hypophosphatemia noted will improve with improved nutrition, pt is eating all of meals, does have some persistent nausea and constipation DVT proph - SCDs; chemical due to concern for GI bleeding abnormal LFTs - improving. HepC ab is +.HepC RNA is pending. RUQ u/s is negative and recent HIDA scan also normal. leukocytosis -Blood cx's thus far negative. Total Time Spent: Greater than 30 minutes This includes examination of the patient, discharge planning, medication reconciliation, and communication with other providers. Discharge Instructions Please refer to the electronic Patient Visit Report (Discharge Instructions) for additional information.
[2017-04-28 15:01] VITALS: Ht 185.4 cm; Wt 95.2 kg
[2017-04-30 05:37] LABS: HEPATITIS C RNA TMA QUAL Detected
== END 2017-04-28 16:21 | disposition home or self-care (01) | DRG 638 ==
LOC: EDBD 11:56 → C.EDB 11:58 → ENRESERV 15:26 → C.MED 16:23
PROVIDERS: ADMIT Internal Medicine; ATTEND Internal Medicine
PROC: 0DJ08ZZ Inspection of Upper Intestinal Tract, Via Natural or Artificial Opening Endoscopic (ICD-10-PCS; principal; 2017-04-27 10:51)
DX: E10.10 Type 1 diabetes mellitus with ketoacidosis without coma (principal); N17.9 Acute kidney failure, unspecified; K92.0 Hematemesis; I10 Essential (primary) hypertension; E78.5 Hyperlipidemia, unspecified; F17.200 Nicotine dependence, unspecified, uncomplicated; R10.84 Generalized abdominal pain; E87.5 Hyperkalemia; D72.829 Elevated white blood cell count, unspecified; E78.00 Pure hypercholesterolemia, unspecified; E83.39 Other disorders of phosphorus metabolism; Z83.3 Family history of diabetes mellitus

== ENCOUNTER 2017-06-01 21:30 | Emergency (ER) | payer OTHER ==
[~2017-06-01] VITALS: Ht 185.4 cm; Wt 88.8 kg
[~2017-06-01 21:30] MED LIST changes: -CYM/30 PO; +INSDGIPEN SC; -INSHI7030 SC; -INSHRIE SC; -INSU1INJ SC; +NVLGIPEN SC; +PRT40 PO; +SUCR1TAB PO
[2017-06-01 21:33] VITALS: TEMP 37.3; Ht 185.4 cm; Wt 88.8 kg
[2017-06-01 21:47] VITALS: O2SAT 97
[2017-06-01] MEDS ORDERED: ONDANSETRON INJ 2 MG/ML 2 ML VIAL IV STA (21:50)
[2017-06-01] MEDS ORDERED: SODIUM CHLORIDE 0.9% 1000ML 1,000 ML, SODIUM CHLORIDE 0.9% 1000ML 1,000 ML IV ONE (22:00)
[2017-06-01 22:21] LABS: BASO % 0.2 %; BASO ABS # 0.02 K/uL (0-0.2); COMPLETE YES; EOS % 0.2 %; HEMATOCRIT 40.6 % (42-52); IG% 0.3 %; LYMPH % 15.2 %; LYMPH ABS # 2.02 K/uL (1.2-3.4); MEAN CELL VOLUME 86.9 fL (80-100); MEAN CORPUSCULAR HEMOGLOBIN 30.6 pg (25-34); MEAN CORPUSCULAR HGB CONC 35.2 g/dl (32-36); MEAN PLATELET VOLUME 10.1 fL (7.4-10.4); MONO % 7.7 %; NEUT % 76.4 %; PLATELET COUNT 196 K/uL (130-400); RED BLOOD COUNT 4.67 M/uL (4.7-6.1); WHITE BLOOD COUNT 13.27 K/uL (4.8-10.8)
[2017-06-01] MEDS ORDERED: INSHI7030 SC ×3 (22:22)
[2017-06-01] MEDS ORDERED: PANT40TA PO (22:22)
[2017-06-01] MEDS ORDERED: SUCR1TAB29 PO (22:22)
[2017-06-01 22:41] LABS: URINE APPEARANCE CLEAR (CLEAR); URINE BILIRUBIN NEG (NEG); URINE COLOR YELLOW; URINE NITRITE NEG (NEG); URINE SPECIFIC GRAVITY 1.025 (1.000-1.030); UROBILINOGEN NEG (NEG); ZZUR CULT IF INDIC CLEAN CATCH NO
[2017-06-01 22:42] LABS: BUN/CREATININE RATIO 15.7 (10-20); CALCIUM 9.2 mg/dl (8.5-10.1); CREATININE 1.35 mg/dl (0.60-1.40); MAGNESIUM 2.2 mg/dl (1.8-2.4); POTASSIUM 3.5 mmol/L (3.5-5.1)
[2017-06-01 22:43] LABS: MANUAL MICROSCOPIC REQUIRED? NO; REVIEW REQ? NO
[2017-06-01 22:45] LABS: ALB/GLOB RATIO 0.9 (0.9-2)
[2017-06-01 23:03] LABS: VEN BLD GAS O2 SATURATION 85.8 %; VEN BLOOD GAS BASE EXCESS -0.4 mEq/L
[2017-06-01 23:53] LABS: LYME DISEASE AB IGG NEG (NEG); LYME DISEASE AB IGM NEG (NEG)
[2017-06-02] MEDS ORDERED: ONDANSETRON HOME PACK 4MG OD TAB PO ONE (00:15)
[2017-06-02 00:27] VITALS: BP 151/74; PULSE 88; O2SAT 96
--- NOTE | 2017-06-02 02:44 | EMERGENCY ROOM VISIT NOTE ---
History First contact with patient: 21:41 Chief Complaint: VOMITING Stated Complaint: DIABETES, VOMITING, DEHYDRATION Nursing Triage Summary: pt states vomiting x 20 since yesterday morning, pt states taking insulin from detention [facility] unable to bring down BSG, pt states abdominal pain, hx DKA. Pt given 1LNS via detention History of Present Illness The patient is a 31 year old male who presents to the Emergency Room with complaints of multiple episodes of nausea and vomiting over the past one day. The patient is currently incarcerated locally and has been evaluated by the [facility]. The patient is a type I diabetic, and reports that his blood sugar was over 400 yesterday. He has been taking insulin, and his last blood sugar was in the 150s. He continued with vomiting, and now presents to the ER for evaluation. The patient has had 1 L of normal saline in route. He has not had fever or chills. He has some abdominal discomfort from retching. He does not have other complaints. Review of Systems More than 10 systems were reviewed and otherwise negative with the exception of history of present illness. Past Medical/Surgical History Medical Problems: (1) Diabetes (2) Dyslipidemia (3) HTN (hypertension) Family History Diabetes mellitus Social History Smoking Status: Current Every Day Smoker Drug Use: other Marital Status: Housing Status: other Occupation Status: other Current/Historical Medications Scheduled Atorvastatin (Lipitor), 20 MG PO DAILY Dextrose (Diabetic Use) (Glucose), 1-2 TUBE PRN Insulin Human Isophan/Regular (Humulin 70/30), UNITS SC SLIDING SCALE Insulin Human Isophan/Regular (Humulin 70/30), 40 UNITS SC QAM Insulin Human Isophan/Regular (Humulin 70/30), 36 UNITS SC QPM Lisinopril (Prinivil), 10 MG PO DAILY Pantoprazole (Protonix), 40 MG PO DAILY Sucralfate (Carafate), 1 GM PO QID Physical Exam Vital Signs Date Time Temp Pulse Resp B/P (MAP) Pulse Ox O2 Delivery O2 Flow Rate FiO2 06/02/17 00:27 88 18 151/74 96 Room Air 06/01/17 23:16 83 18 155/77 97 Room Air 06/01/17 21:50 97 06/01/17 21:47 97 Room Air 06/01/17 21:33 37.3 113 20 146/102 96 Room Air Physical Exam VITALS: Vitals are noted on the nurse's note and reviewed by myself. Vital signs with slight tachycardia GENERAL: Well-developed, well-nourished, white male, who is in no acute distress and resting comfortably. Patient is cooperative with the examination. HEAD: Normocephalic atraumatic. MOUTH: Mucous membranes moist. Tonsils are not enlarged. Pharynx without erythema, blood, or exudate. Uvula midline. Airway patent. NECK: Supple without nuchal rigidity. No lymphadenopathy. No thyromegaly. Cervical spine is nontender. HEART: Tachycardic rate with regular rhythm. LUNGS: Clear to auscultation bilaterally without wheezes, rales or rhonchi. No retractions or accessory muscle use. ABDOMEN: Positive normal bowel sounds x 4. Soft, nontender, without masses or organomegaly. No guarding or rebound tenderness. MUSCULOSKELETAL: No muscle atrophy, erythema, or edema noted. Full range of motion without joint tenderness in all extremities. Medical Decision & Procedures Laboratory Results 06/01/17 22:09 Red Blood Count 4.67, Mean Corpuscular Volume 86.9, Mean Corpuscular Hemoglobin 30.6, Mean Corpuscular Hemoglobin Concent 35.2, Mean Platelet Volume 10.1, Neutrophils (%) (Auto) 76.4, Lymphocytes (%) (Auto) 15.2, Monocytes (%) (Auto) 7.7, Eosinophils (%) (Auto) 0.2, Basophils (%) (Auto) 0.2, Neutrophils # (Auto) 10.14, Lymphocytes # (Auto) 2.02, Monocytes # (Auto) 1.02, Eosinophils # (Auto) 0.03, Basophils # (Auto) 0.02 06/01/17 22:09 Test 06/01/17 22:01 06/01/17 22:09 06/01/17 22:25 06/01/17 22:53 Bedside Glucose 127 mg/dl (70-99) White Blood Count 13.27 K/uL (4.8-10.8) Red Blood Count 4.67 M/uL (4.7-6.1) Hemoglobin 14.3 g/dL (14.0-18.0) Hematocrit 40.6 % (42-52) Mean Corpuscular Volume 86.9 fL (80-100) Mean Corpuscular Hemoglobin 30.6 pg (25-34) Mean Corpuscular Hemoglobin Concent 35.2 g/dl (32-36) Platelet Count 196 K/uL (130-400) Mean Platelet Volume 10.1 fL (7.4-10.4) Neutrophils (%) (Auto) 76.4 % Lymphocytes (%) (Auto) 15.2 % Monocytes (%) (Auto) 7.7 % Eosinophils (%) (Auto) 0.2 % Basophils (%) (Auto) 0.2 % Neutrophils # (Auto) 10.14 K/uL (1.4-6.5) Lymphocytes # (Auto) 2.02 K/uL (1.2-3.4) Monocytes # (Auto) 1.02 K/uL (0.11-0.59) Eosinophils # (Auto) 0.03 K/uL (0-0.5) Basophils # (Auto) 0.02 K/uL (0-0.2) RDW Standard Deviation 40.7 fL (36.4-46.3) RDW Coefficient of Variation 12.8 % (11.5-14.5) Immature Granulocyte % (Auto) 0.3 % Immature Granulocyte # (Auto) 0.04 K/uL (0.00-0.02) Anion Gap 15.0 mmol/L (3-11) Est Creatinine Clear Calc Drug Dose 90.4 ml/min Estimated GFR () 81.1 Estimated GFR (Non- 70.0 BUN/Creatinine Ratio 15.7 (10-20) Calcium Level 9.2 mg/dl (8.5-10.1) Magnesium Level 2.2 mg/dl (1.8-2.4) Total Bilirubin 1.2 mg/dl (0.2-1) Aspartate Amino Transf (AST/SGOT) 29 U/L (15-37) Alanine Aminotransferase (ALT/SGPT) 90 U/L (12-78) Alkaline Phosphatase 86 U/L (45-117) Total Protein 7.2 gm/dl (6.4-8.2) Albumin 3.5 gm/dl (3.4-5.0) Globulin 3.7 gm/dl (2.5-4.0) Albumin/Globulin Ratio 0.9 (0.9-2) Lipase 355 U/L (73-393) Lyme Disease IgG Antibody NEG (NEG) Lyme Disease IgM Antibody NEG (NEG) Urine Color YELLOW Urine Appearance CLEAR (CLEAR) Urine pH 5.0 (4.5-7.5) Urine Specific [place] 1.025 (1.000-1.030) Urine Protein 3+ (NEG) Urine Glucose (UA) 3+ (NEG) Urine Ketones 3+ (NEG) Urine Occult Blood 1+ (NEG) Urine Nitrite NEG (NEG) Urine Bilirubin NEG (NEG) Urine Urobilinogen NEG (NEG) Urine Leukocyte Esterase NEG (NEG) Urine WBC (Auto) 1-5 /hpf (0-5) Urine RBC (Auto) 0-4 /hpf (0-4) Urine Hyaline Casts (Auto) 10-30 /lpf (0-5) Urine Epithelial Cells (Auto) 10-20 /lpf (0-5) Urine Bacteria (Auto) NEG (NEG) Venous Blood pH 7.44 (7.36-7.41) Venous Blood Partial Pressure CO2 35 mmHg (38.0-50.0) Venous Blood Partial Pressure O2 52 mmHg Venous Blood HCO3 23 mmol/L Venous Blood Oxygen Saturation 85.8 % Venous Blood Base Excess -0.4 mEq/L Medications Administered Medications (Trade) Dose Ordered Sig/Madai Route Start Time Stop Time Status Last Admin Dose Admin Sodium Chloride/ Sodium Chloride 2,000 ml @ 999 mls/hr Q2H1M ONCE IV 06/01/17 22:00 06/02/17 00:00 DC 06/01/17 22:20 999 MLS/HR Ondansetron HCl (Zofran Inj) 4 mg NOW STAT IV 06/01/17 21:50 06/01/17 21:51 DC 06/01/17 22:20 4 MG Ondansetron HCl (ZOFRAN ODT 4MG Home Pack) 1 homepack UD ONCE PO 06/02/17 00:15 06/02/17 00:16 DC 06/02/17 00:30 1 HOMEPACK ED Course Physical exam and history were performed. Nursing notes, EMR, and Medication List were personally reviewed. Patient appears to have nausea and vomiting symptoms for the past one day. He has a history of diabetes. IV access was established and labs were obtained. The patient has been given 1 L of normal saline prehospital and he was provided another 2 L here in the department. Bedside glucose was in the 140s. He was given Zofran for comfort. The patient's blood work is as above and was reviewed. The patient does have a slightly elevated white blood cell count which is felt to be from stress or possibly from his vomiting. He has a very slightly but not significantly elevated glucose. He is not acidotic. He does have ketones in his urine. Lipase and transaminases are nondiagnostic. His remaining labs are fairly unremarkable. On reevaluation the patient did feel better. His heart rate normalized, and he did not have additional episodes of emesis here in the department. The patient does not appear to be in DKA, which was my primary concern. He likely has a viral or foodborne illness, and can be appropriately managed by the [facility]. The patient is to continue fluids and glucose monitoring. He was certainly invited back to the ER with any new, worsening, or concerning symptoms. I will give him a home pack of Zofran for supportive care. The chart was completed utilizing [employer] Speech Voice Recognition Software. Grammatical errors, random word insertions, pronoun errors, and incomplete sentences are an occasional consequence of this system due to software limitations, ambient noise, and hardware issues. Any formal questions or concerns about the content, text, or information contained within the body of this dictation should be directly addressed to the provider for clarification. . Medical Decision Differential diagnosis: Etiologies such as gastroenteritis, food borne illness, infections, appendicitis , diverticulitis, inflammatory bowel disease, obstruction, GI bleed, biliary pathology, as well as others were entertained. Blood Pressure Screening Blood pressure disposition: Referred to PCP Impression Primary Impression: Nausea and vomiting Departure Information Dispostion Other (Discharged under care of corrections officers) Condition GOOD Forms HOME CARE DOCUMENTATION FORM, IMPORTANT VISIT INFORMATION Patient Instructions My [facility] Additional Instructions You were seen and evaluated today on an emergency basis only. This is not a substitute for, or an effort to provide, complete comprehensive medical care. It is not possible to recognize and treat all injuries or illnesses in a single emergency department visit. For this reason it is recommended that you followup with the [facility] in the morning for recheck. Drink plenty of fluids and remain well hydrated. Monitor your sugar closely. Zofran 1 tablet every 6 hrs as needed for nausea. You are welcome to return to the emergency department anytime with new, worsening, or concerning symptoms.
[2017-06-02] MEDS ORDERED: ONDA4TAB46 PO (21:45)
== END 2017-06-02 00:55 | disposition home or self-care (01) ==
LOC: C.EDB 21:31
DX: R11.2 Nausea with vomiting, unspecified (principal); E86.0 Dehydration; E78.5 Hyperlipidemia, unspecified; F17.210 Nicotine dependence, cigarettes, uncomplicated; Z79.4 Long term (current) use of insulin; E10.9 Type 1 diabetes mellitus without complications

== ENCOUNTER 2017-06-02 21:10 | Emergency (ER) | payer OTHER ==
[~2017-06-02] VITALS: Ht 185.4 cm; Wt 91.3 kg
[~2017-06-02 21:10] MED LIST changes: -INSDGIPEN SC; +INSHI7030 SC; -NVLGIPEN SC; -ONDA4TAB65 PO; +PANT40TA PO; -PRT40 PO; -SUCR1TAB PO; +SUCR1TAB29 PO
[2017-06-02 21:12] VITALS: TEMP 36.9; Ht 185.4 cm; Wt 91.3 kg
[2017-06-02] MEDS ORDERED: ONDANSETRON INJ 2 MG/ML 2 ML VIAL IV STA (21:40)
[2017-06-02] MEDS ORDERED: SODIUM CHLORIDE 0.9% 1000ML 1,000 ML, SODIUM CHLORIDE 0.9% 1000ML 1,000 ML IV ONE (21:45)
[2017-06-02] MEDS ORDERED: OPTIRAY 320 IV PRN (21:45)
[2017-06-02] MEDS ORDERED: ONDA4TAB46 PO (21:45)
[2017-06-02] MEDS ORDERED: MoRPHine SULFATE 4 MG/ML 1 ML CARP\\VIAL IV ONE (21:45)
[2017-06-02 22:35] LABS: BASO % 0.1 %; BASO ABS # 0.01 K/uL (0-0.2); COMPLETE YES; EOS % 3.1 %; HEMATOCRIT 37.7 % (42-52); IG% 0.3 %; LYMPH ABS # 2.94 K/uL (1.2-3.4); MEAN CELL VOLUME 87.7 fL (80-100); MEAN CORPUSCULAR HEMOGLOBIN 30.2 pg (25-34); MEAN CORPUSCULAR HGB CONC 34.5 g/dl (32-36); MEAN PLATELET VOLUME 9.9 fL (7.4-10.4); MONO % 7.1 %; NEUT % 60.4 %; PLATELET COUNT 217 K/uL (130-400); WHITE BLOOD COUNT 10.15 K/uL (4.8-10.8)
[2017-06-02 22:43] LABS: VEN BLOOD GAS BASE EXCESS 4.9 mEq/L
[2017-06-02 22:57] LABS: ALB/GLOB RATIO 0.9 (0.9-2); BETA-HYDROXYBUTYRATE 10.05 mg/dL (0.2-2.81); BUN/CREATININE RATIO 11.4 (10-20); CALCIUM 8.7 mg/dl (8.5-10.1); CREATININE 0.9 mg/dl (0.60-1.40); MAGNESIUM 1.9 mg/dl (1.8-2.4); POTASSIUM 3.2 mmol/L (3.5-5.1)
[2017-06-03 00:19] LABS: URINE APPEARANCE CLEAR (CLEAR); URINE BILIRUBIN NEG (NEG); URINE COLOR YELLOW; URINE EPITHELIAL CELL AUTO 0-5 /lpf (0-5); URINE NITRITE NEG (NEG); URINE PH 6.5 (4.5-7.5); UROBILINOGEN NEG (NEG); ZZUR CULT IF INDIC CLEAN CATCH NO
[2017-06-03 00:22] LABS: MANUAL MICROSCOPIC REQUIRED? NO; REVIEW REQ? NO
[2017-06-03] MEDS ORDERED: PANTOprazole INJ 40 MG in SYRINGE 0 ML IV ONE (01:30)
[2017-06-03 01:35] VITALS: BP 138/89; PULSE 71; O2SAT 97
--- NOTE | 2017-06-03 04:08 | EMERGENCY ROOM VISIT NOTE ---
History First contact with patient: 21:33 Chief Complaint: ABDOMINAL PAIN Stated Complaint: SEVERE ABDOMINAL PAIN Nursing Triage Summary: continues to have nausea vomiting and abdominal pain that is in the epigastric area and radiated to the mid abdomen. blood sugars contiue to be elevated History of Present Illness The patient is a 31 year old male who presents to the Emergency Room with complaints of continued nausea and vomiting. The patient was seen and evaluated yesterday with this complaint. He is currently incarcerated at [facility] and is accompanied by corrections officers. The patient is a type I diabetic who was seen in this facility yesterday with the nausea and vomiting symptoms. He was given IV fluids and antiemetics, and felt much better. He did not have significant findings of his visit yesterday. The patient returns today, roughly 24 hours later, now complaining of a sharp epigastric abdominal pain that radiates towards his umbilicus. He continues with the nausea and vomiting. He states that he has not been able to eat today because of his symptoms. He has been drinking small amounts of fluid. His blood sugar has been as high as 250 today, and he feels like it is low right now. He has not had IV fluids today. He rates his overall discomfort a 9/10. Review of Systems More than 10 systems were reviewed and otherwise negative with the exception of history of present illness. Past Medical/Surgical History Medical Problems: (1) Diabetes (2) Dyslipidemia (3) HTN (hypertension) Family History Diabetes mellitus Social History Smoking Status: Current Every Day Smoker Drug Use: other Marital Status: Housing Status: other Occupation Status: other Current/Historical Medications Scheduled Atorvastatin (Lipitor), 20 MG PO DAILY Insulin Human Isophan/Regular (Humulin 70/30), UNITS SC SLIDING SCALE Insulin Human Isophan/Regular (Humulin 70/30), 40 UNITS SC QAM Insulin Human Isophan/Regular (Humulin 70/30), 36 UNITS SC QPM Lisinopril (Prinivil), 10 MG PO DAILY Ondansetron Hcl (Zofran), 4 MG PO TID Pantoprazole (Protonix), 40 MG PO DAILY Sucralfate (Carafate), 1 GM PO ACHS Scheduled PRN Dextrose (Diabetic Use) (Glucose), 1-2 TUBE PRN PRN for HYPOGLYCEMIA Allergies Coded Allergies: Penicillins (Verified Allergy, Intermediate, childhood. unsure, 06/01/17) Physical Exam Vital Signs Date Time Temp Pulse Resp B/P (MAP) Pulse Ox O2 Delivery O2 Flow Rate FiO2 06/03/17 01:35 71 20 138/89 97 Room Air 06/02/17 23:57 78 16 155/107 100 Room Air 06/02/17 22:56 78 20 164/91 98 Room Air 06/02/17 21:12 36.9 99 20 144/90 97 Room Air Physical Exam VITALS: Vitals are noted on the nurse's note and reviewed by myself. Vital signs stable. GENERAL: Well-developed, well-nourished, white male, who is in no acute distress and resting comfortably. Patient is cooperative with the examination. MOUTH: Mucous membranes moist. Tonsils are not enlarged. Pharynx without erythema, blood, or exudate. Uvula midline. Airway patent. NECK: Supple without nuchal rigidity. No lymphadenopathy. No thyromegaly. Cervical spine is nontender. HEART: Regular rate and rhythm without murmurs gallops or rubs. LUNGS: Clear to auscultation bilaterally without wheezes, rales or rhonchi. No retractions or accessory muscle use. ABDOMEN: Positive normal bowel sounds x 4. Soft with mild epigastric tenderness on palpation. No lower abdominal tenderness. No CVA tenderness. MUSCULOSKELETAL: No muscle atrophy, erythema, or edema noted. Full range of motion without joint tenderness in all extremities. Medical Decision & Procedures ER Provider Diagnostic Interpretation: Preliminary Findings Only See Final Report For Complete Findings CT ABDOMEN & PELVIS With Contrast: Normal appendix. No free air or free fluid. No bowel obstruction. Bladder is distended and there is mild bilateral hydroureteronephrosis, which is likely secondary to the bladder distention. No evidence of renal stone or obstructing lesion. Focal fatty infiltration of liver along the falciform ligament. Solid organs otherwise unremarkable. Small sliding hernia versus mural thickening of the distal esophagus. Laboratory Results 06/02/17 22:23 Red Blood Count 4.30, Mean Corpuscular Volume 87.7, Mean Corpuscular Hemoglobin 30.2, Mean Corpuscular Hemoglobin Concent 34.5, Mean Platelet Volume 9.9, Neutrophils (%) (Auto) 60.4, Lymphocytes (%) (Auto) 29.0, Monocytes (%) (Auto) 7.1, Eosinophils (%) (Auto) 3.1, Basophils (%) (Auto) 0.1, Neutrophils # (Auto) 6.14, Lymphocytes # (Auto) 2.94, Monocytes # (Auto) 0.72, Eosinophils # (Auto) 0.31, Basophils # (Auto) 0.01 06/02/17 22:22 Test 06/02/17 22:18 06/02/17 22:22 06/02/17 22:23 06/03/17 00:00 Bedside Lactic Acid Venous 1.28 mmol/L (0.90-1.70) Venous Blood pH 7.46 (7.36-7.41) Venous Blood Partial Pressure CO2 42 mmHg (38.0-50.0) Venous Blood Partial Pressure O2 46 mmHg Venous Blood HCO3 29 mmol/L Venous Blood Oxygen Saturation 81.0 % Venous Blood Base Excess 4.9 mEq/L Anion Gap 7.0 mmol/L (3-11) Est Creatinine Clear Calc Drug Dose 135.6 ml/min Estimated GFR () 132.4 Estimated GFR (Non- 114.2 BUN/Creatinine Ratio 11.4 (10-20) Calcium Level 8.7 mg/dl (8.5-10.1) Magnesium Level 1.9 mg/dl (1.8-2.4) Total Bilirubin 0.8 mg/dl (0.2-1) Aspartate Amino Transf (AST/SGOT) 47 U/L (15-37) Alanine Aminotransferase (ALT/SGPT) 86 U/L (12-78) Alkaline Phosphatase 72 U/L (45-117) Total Protein 6.7 gm/dl (6.4-8.2) Albumin 3.2 gm/dl (3.4-5.0) Globulin 3.5 gm/dl (2.5-4.0) Albumin/Globulin Ratio 0.9 (0.9-2) Lipase 373 U/L (73-393) Beta-Hydroxybutyric Acid 10.05 mg/dL (0.2-2.81) White Blood Count 10.15 K/uL (4.8-10.8) Red Blood Count 4.30 M/uL (4.7-6.1) Hemoglobin 13.0 g/dL (14.0-18.0) Hematocrit 37.7 % (42-52) Mean Corpuscular Volume 87.7 fL (80-100) Mean Corpuscular Hemoglobin 30.2 pg (25-34) Mean Corpuscular Hemoglobin Concent 34.5 g/dl (32-36) Platelet Count 217 K/uL (130-400) Mean Platelet Volume 9.9 fL (7.4-10.4) Neutrophils (%) (Auto) 60.4 % Lymphocytes (%) (Auto) 29.0 % Monocytes (%) (Auto) 7.1 % Eosinophils (%) (Auto) 3.1 % Basophils (%) (Auto) 0.1 % Neutrophils # (Auto) 6.14 K/uL (1.4-6.5) Lymphocytes # (Auto) 2.94 K/uL (1.2-3.4) Monocytes # (Auto) 0.72 K/uL (0.11-0.59) Eosinophils # (Auto) 0.31 K/uL (0-0.5) Basophils # (Auto) 0.01 K/uL (0-0.2) RDW Standard Deviation 41.4 fL (36.4-46.3) RDW Coefficient of Variation 12.9 % (11.5-14.5) Immature Granulocyte % (Auto) 0.3 % Immature Granulocyte # (Auto) 0.03 K/uL (0.00-0.02) Urine Color YELLOW Urine Appearance CLEAR (CLEAR) Urine pH 6.5 (4.5-7.5) Urine Specific [place] 1.010 (1.000-1.030) Urine Protein 2+ (NEG) Urine Glucose (UA) 1+ (NEG) Urine Ketones NEG (NEG) Urine Occult Blood TRACE (NEG) Urine Nitrite NEG (NEG) Urine Bilirubin NEG (NEG) Urine Urobilinogen NEG (NEG) Urine Leukocyte Esterase NEG (NEG) Urine WBC (Auto) 0 /hpf (0-5) Urine RBC (Auto) 0-4 /hpf (0-4) Urine Hyaline Casts (Auto) 0 /lpf (0-5) Urine Epithelial Cells (Auto) 0-5 /lpf (0-5) Urine Bacteria (Auto) NEG (NEG) Test 06/03/17 00:36 Bedside Glucose 94 mg/dl (70-99) Medications Administered Medications (Trade) Dose Ordered Sig/Madai Route Start Time Stop Time Status Last Admin Dose Admin Sodium Chloride/ Sodium Chloride 2,000 ml @ 999 mls/hr Q2H1M ONCE IV 06/02/17 21:45 06/02/17 23:45 DC 06/02/17 22:11 999 MLS/HR Morphine Sulfate (MoRPHine SULFATE INJ) 4 mg NOW ONCE IV 06/02/17 21:45 06/02/17 21:46 DC 06/02/17 22:11 4 MG Ondansetron HCl (Zofran Inj) 4 mg NOW STAT IV 06/02/17 21:40 06/02/17 21:43 DC 06/02/17 22:11 4 MG Pantoprazole Sodium 40 mg/ Syringe 10 ml @ 5 mls/min NOW ONCE IV 06/03/17 01:30 06/03/17 01:31 DC 06/03/17 01:34 5 MLS/MIN ED Course Physical exam and history were performed. Nursing notes, EMR, and Medication List were personally reviewed. Patient appears to have nausea and vomiting for the past few days as well as acute onset abdominal pain. On examination the patient does not appear toxic. He does have some epigastric abdominal tenderness on palpation. IV access was established and labs are obtained. The patient did have a bedside glucose of 47 which improved to 95 after being provided oral orange juice. The patient was hydrated and medicated as above. Because of the new onset of abdominal pain I did elect to perform a CT scan with contrast. The patient's blood work is as above and was reviewed. His white blood cell count is 8000, which is improved from yesterday's reading of 13,000. He is with some minimal anemia, however this is improved over his baseline, and is likely from IV hydration. He remains non-acidotic. There are serum ketones present, and his electrolytes are nondiagnostic. The patient CT scan is as above and does not show acute surgical process. He does not appear to have obstruction or other significant finding. On reevaluation the patient was found to be without emesis over the past several hours. He has only minimal epigastric discomfort on palpation, and no evidence of peritonitis. I suspect the patient is experiencing gastritis from his vomiting over the past 2 days. The vomiting is felt to be viral or foodborne etiology. I discussed the case with my attending physician, Dr. Sullivan, and we feel the patient is stable for discharge back or he can be monitored in the [facility]. The patient will be encouraged to take a PPI at the discretion of the [facility]. The patient was otherwise invited back to the ER with any new , worsening, or concerning symptoms. The chart was completed utilizing [employer] Speech Voice Recognition Software. Grammatical errors, random word insertions, pronoun errors, and incomplete sentences are an occasional consequence of this system due to software limitations, ambient noise, and hardware issues. Any formal questions or concerns about the content, text, or information contained within the body of this dictation should be directly addressed to the provider for clarification. . Medical Decision Differential diagnosis: Etiologies such as appendicitis, diverticulitis, PUD, biliary pathology, UTI, pancreatitis, obstruction, mesenteric ischemia, aortic pathology, infections, inflammatory bowel disease, renal colic, as well as others were entertained. Impression Primary Impression: Epigastric abdominal pain Additional Impression: Nausea and vomiting Departure Information Dispostion Home / Self-Care Condition GOOD Forms Call Back Authorization, HOME CARE DOCUMENTATION FORM, IMPORTANT VISIT INFORMATION Patient Instructions Formerly [facility], [facility] Additional Instructions You were seen and evaluated today on an emergency basis only. This is not a substitute for, or an effort to provide, complete comprehensive medical care. It is not possible to recognize and treat all injuries or illnesses in a single emergency department visit. For this reason it is recommended that you [facility]up [facility] the [facility] for a recheck. Continue Zofran. We recommend starting a medication like Protonix or Prilosec. These medications can be administered through the [facility] based on their formulary. You are welcome to return to the emergency department anytime with new, worsening, or concerning symptoms. Problem Qualifiers
--- NOTE | 2017-06-03 07:49 | DIAGNOSTIC IMAGING REPORT ---
CT SCAN OF THE ABDOMEN AND PELVIS WITH IV CONTRAST CLINICAL HISTORY: Generalized abdominal pain. Nausea and vomiting. COMPARISON STUDY: Abdominal CT dated 04/25/2017. TECHNIQUE: Following the IV administration of 92 cc of Optiray 320, CT scan of the abdomen and pelvis is performed from the lung bases to the proximal femora. Images are reviewed in the axial, sagittal, and coronal planes. IV contrast was administered without complication. A dose lowering technique was utilized adhering to the principles of ALARA. CT DOSE: 491.65 mGy.cm FINDINGS: Lung bases: The heart is normal in size and without pericardial effusion. There is a trace right pleural effusion and dependent atelectasis. The lung bases are otherwise clear. There is a tiny hiatal hernia. Liver: The contrast-enhanced liver is normal in size, contour, and attenuation. Focal fatty infiltration is seen adjacent to falciform ligament. There is no intrahepatic biliary ductal dilatation. The hepatic veins and portal veins are patent. Gallbladder: Unremarkable. Spleen: Normal in size and attenuation. Pancreas: Unremarkable. Adrenal glands: Unremarkable. Kidneys: The contrast enhanced kidneys are normal in size. There is mild bilateral hydroureteronephrosis, right greater than left. The kidneys enhance symmetrically. Abdominal vasculature: The abdominal aorta is normal in course and caliber. Bowel: Moderate colonic fecal retention is observed. No bowel obstruction is seen. The appendix is well-visualized and normal. Peritoneum: There is no intraperitoneal free air or abdominal ascites. A fat-containing umbilical hernia is noted. Lymphadenopathy: None. Pelvic viscera: The bladder is markedly distended. The prostate and seminal vesicles are normal as visualized. Skeletal structures: No lytic or blastic lesions are seen. IMPRESSION: 1. The bladder is markedly distended. No bladder wall thickening is seen. 2. There is mild bilateral hydroureteronephrosis, slightly greater on the right. This is likely secondary to the distended bladder. 3. No renal calculus or obstructing lesion is seen. 4. Trace right pleural effusion. Electronically signed by: Mulugeta Gonzalez M.D. 06/03/2017 7:48 AM Dictated Date/Time: 06/03/2017 6:55 AM
== END 2017-06-03 02:01 ==
LOC: C.EDB 21:11
DX: R10.13 Epigastric pain (principal); R11.2 Nausea with vomiting, unspecified; E10.9 Type 1 diabetes mellitus without complications; E78.5 Hyperlipidemia, unspecified; I10 Essential (primary) hypertension; F17.200 Nicotine dependence, unspecified, uncomplicated; Z79.4 Long term (current) use of insulin; Z83.3 Family history of diabetes mellitus

== ENCOUNTER → 2017-06-17 | Outpatient (CLI) | payer OTHER ==
[~2017-06-17] MED LIST changes: +ONDA4TAB46 PO
--- NOTE | 2017-06-17 13:39 | DIAGNOSTIC IMAGING REPORT ---
GASTRIC EMPTYING CLINICAL HISTORY: 31 years-old Male presenting with AB PAIN. TECHNIQUE: Following the oral administration of 1.07 mCi of technetium 99m sulfur colloid in egg sandwich and 8 ounces of water, static abdominal images are obtained anteriorly and posteriorly at 0 minutes, 1 hour, 2 hour, and 4 hour time intervals. Gastric emptying was calculated utilizing the geometric mean method. COMPARISON: CT from 06/03/2017. FINDINGS: There is approximately 79% activity remaining at the 1 hour time interval, 69% remaining at the 2 hour time interval (normal is less than 60%), and 55% activity remaining at the 4 hour time interval (normal is less than 10%). IMPRESSION: Findings are consistent with delayed gastric emptying, which can be seen in the setting of gastroparesis among other etiologies. Electronically signed by: Chin Cooley M.D. 06/17/2017 1:37 PM Dictated Date/Time: 06/17/2017 1:36 PM
== END ==
LOC: C.NUCL 09:02
PROVIDERS: ATTEND Internal Medicine
DX: R11.2 Nausea with vomiting, unspecified (principal); R10.9 Unspecified abdominal pain; E10.65 Type 1 diabetes mellitus with hyperglycemia

== ENCOUNTER 2017-11-08 19:48 | Emergency (ER) | payer OTHER ==
[~2017-11-08] VITALS: Ht 185.4 cm; Wt 91.2 kg
[2017-11-08 19:50] VITALS: TEMP 37.1; Ht 185.4 cm; Wt 91.2 kg
[2017-11-08] MEDS ORDERED: NovoLIN-R INSULIN PER UNIT CHARGE IV STA (20:01)
[2017-11-08] MEDS ORDERED: SODIUM CHLORIDE 0.9% 1000ML 1,000 ML IV STA ×2 (20:01→21:48)
[2017-11-08] MEDS ORDERED: ONDANSETRON INJ 2 MG/ML 2 ML VIAL IV STA (20:01)
[2017-11-08] MEDS ORDERED: INSPMPRGR SQ (20:13)
[2017-11-08] MEDS ORDERED: METO-157 PO (20:13)
[2017-11-08] MEDS ORDERED: ASPI-390 PO (20:20)
[2017-11-08] MEDS ORDERED: HYDR25CA PO (20:20)
[2017-11-08] MEDS ORDERED: INSDGI SC (20:20)
--- NOTE | 2017-11-08 20:29 | EMERGENCY ROOM VISIT NOTE ---
History Report prepared by Siomara: Jose Dominguez Under the Supervision of: Dr. Mulugeta Joseph M.D. First contact with patient: 19:53 Chief Complaint: HYPERGLYCEMIA Stated Complaint: HIGH BLOOD SUGAR History of Present Illness The patient is a 31 year old male who presents to the Emergency Room with complaints of constant general hyperglycemia for 1.5 weeks. The patient currently resides at [facility]. The patient has a history of diabetes. He states that his blood glucose sugar has been well above the 500s and he was given extra regular insulin twice today, though his blood sugar is still elevated. He states that they have been unable to lower his blood glucose levels. He notes that he has had congestion and a cough for one week. He has a history of gastroparesis and reports baseline abdominal pain. He has been frequently urinating. He vomited earlier today and states that he is still nauseated. He denies any diarrhea. He has a history of DKA. He is a former smoker as of three weeks ago. Source of History: patient Onset: 1.5 weeks Position: other (general ) Symptom Intensity: blood glucose 500s+ Quality: other (hyperglycemia) Timing: constant Associated Symptoms: + cough, + nausea, + vomiting, + abdominal pain, + urinary symptoms (frequent urination), No diarrhea Note: Notes congestion. Review of Systems See HPI for pertinent positives & negatives. A total of 10 systems reviewed and were otherwise negative. Past Medical & Surgical Medical Problems: (1) Diabetes (2) DKA (diabetic ketoacidoses) (3) Dyslipidemia (4) Epigastric abdominal pain (5) HTN (hypertension) (6) Nausea and vomiting Family History Diabetes mellitus Social History Smoking Status: Former Smoker Smokeless Tobacco Use: No Alcohol Use: none Drug Use: other Marital Status: Housing Status: other ([facility]) Current/Historical Medications Scheduled Atorvastatin (Lipitor), 20 MG PO DAILY Insulin Glargine (Lantus), 50 UNITS SC HS Insulin Human Regular (Humulin R), UNITS SQ TID Lisinopril (Prinivil), 10 MG PO DAILY Metoclopramide (Reglan), 10 MG PO AC Scheduled PRN Xydfwth-Rfgvhtkecsshx-Giwvcexb (Excedrin Migraine), 1 TAB PO TID PRN for Migraine Dextrose (Diabetic Use) (Glucose), 1-2 TUBE PRN PRN for HYPOGLYCEMIA Hydroxyzine Pamoate (Vistaril), 1 CAP PO TID PRN for Anxiety Sennosides-Docusate Sodium (Senokot S), 2 TAB PO TID PRN for Constipation Allergies Coded Allergies: Penicillins (Verified Allergy, Intermediate, childhood. unsure, 06/01/17) Physical Exam Vital Signs Date Time Temp Pulse Resp B/P (MAP) Pulse Ox O2 Delivery O2 Flow Rate FiO2 11/08/17 22:36 82 18 127/78 98 Room Air 11/08/17 21:49 89 18 119/73 95 Room Air 11/08/17 20:40 89 11/08/17 19:50 37.1 100 20 121/74 95 Room Air Physical Exam GENERAL: Patient is in no acute distress. HEENT: No acute trauma, normocephalic atraumatic, mucous membranes dry, no nasal congestion, no scleral icterus. NECK: No stridor, no adenopathy, no meningismus, trachea is midline. LUNGS: Clear to auscultation bilaterally, no wheeze, no rhonchi, breath sounds equal. HEART: Without murmurs gallops or rubs, regular rate and rhythm. ABDOMEN: Soft, nontender, bowel sounds positive, no hernias, no peritonitis. EXTREMITIES: No cyanosis or edema, full range of motion of all the joints without pain or difficulty, no signs for acute trauma. NEUROLOGIC: Oriented x 3, no acute motor or sensory deficits, no focal weakness. SKIN: No rash, no jaundice, no diaphoresis. Medical Decision & Procedures ER Provider Diagnostic Interpretation: Radiology results as stated below per my review and radiologist interpretation: PA CHEST WITH ABDOMINAL SERIES CLINICAL HISTORY: Vomiting. Generalized abdominal pain. FINDINGS: A PA chest radiograph is compared to study dated 04/25/2017. The cardiomediastinal silhouette is unremarkable. The lungs and pleural spaces are clear. No pneumothorax is seen. The bony thorax is grossly intact. Supine and erect abdominal radiographs are correlated with abdominal CT dated 06/03/2017. There is a nonobstructed abdominal bowel gas pattern. There is moderate to severe constipation. No evidence of intraperitoneal free air is seen. There are no abnormal abdominal calcifications. The lumbosacral spine and bony pelvis appear intact. IMPRESSION: 1. No active disease in the chest. 2. Nonobstructed abdominal bowel gas pattern noting moderate to severe constipation. Electronically signed by: Mulugeta Gonzalez M.D. 11/08/2017 9:32 PM Dictated Date/Time: 11/08/2017 9:30 PM Laboratory Results 11/08/17 20:30 Red Blood Count 4.12, Mean Corpuscular Volume 84.5, Mean Corpuscular Hemoglobin 30.6, Mean Corpuscular Hemoglobin Concent 36.2, Mean Platelet Volume 10.1, Neutrophils (%) (Auto) 64.6, Lymphocytes (%) (Auto) 27.6, Monocytes (%) (Auto) 5.9, Eosinophils (%) (Auto) 1.5, Basophils (%) (Auto) 0.1, Neutrophils # (Auto) 7.22, Lymphocytes # (Auto) 3.09, Monocytes # (Auto) 0.66, Eosinophils # (Auto) 0.17, Basophils # (Auto) 0.01 11/08/17 20:30 Test 11/08/17 20:30 11/08/17 21:20 11/08/17 21:21 White Blood Count 11.18 K/uL (4.8-10.8) Red Blood Count 4.12 M/uL (4.7-6.1) Hemoglobin 12.6 g/dL (14.0-18.0) Hematocrit 34.8 % (42-52) Mean Corpuscular Volume 84.5 fL (80-100) Mean Corpuscular Hemoglobin 30.6 pg (25-34) Mean Corpuscular Hemoglobin Concent 36.2 g/dl (32-36) Platelet Count 199 K/uL (130-400) Mean Platelet Volume 10.1 fL (7.4-10.4) Neutrophils (%) (Auto) 64.6 % Lymphocytes (%) (Auto) 27.6 % Monocytes (%) (Auto) 5.9 % Eosinophils (%) (Auto) 1.5 % Basophils (%) (Auto) 0.1 % Neutrophils # (Auto) 7.22 K/uL (1.4-6.5) Lymphocytes # (Auto) 3.09 K/uL (1.2-3.4) Monocytes # (Auto) 0.66 K/uL (0.11-0.59) Eosinophils # (Auto) 0.17 K/uL (0-0.5) Basophils # (Auto) 0.01 K/uL (0-0.2) RDW Standard Deviation 38.4 fL (36.4-46.3) RDW Coefficient of Variation 12.4 % (11.5-14.5) Immature Granulocyte % (Auto) 0.3 % Immature Granulocyte # (Auto) 0.03 K/uL (0.00-0.02) Anion Gap 7.0 mmol/L (3-11) Est Creatinine Clear Calc Drug Dose 96.9 ml/min Estimated GFR () 88.1 Estimated GFR (Non- 76.0 BUN/Creatinine Ratio 18.6 (10-20) Calcium Level 8.6 mg/dl (8.5-10.1) Magnesium Level 2.0 mg/dl (1.8-2.4) Total Bilirubin 0.8 mg/dl (0.2-1) Aspartate Amino Transf (AST/SGOT) 38 U/L (15-37) Alanine Aminotransferase (ALT/SGPT) 147 U/L (12-78) Alkaline Phosphatase 70 U/L (45-117) Total Protein 6.8 gm/dl (6.4-8.2) Albumin 3.5 gm/dl (3.4-5.0) Globulin 3.3 gm/dl (2.5-4.0) Albumin/Globulin Ratio 1.1 (0.9-2) Beta-Hydroxybutyric Acid 0.94 mg/dL (0.2-2.81) Thyroid Stimulating Hormone (TSH) 1.000 uIu/ml (0.300-4.500) Urine Color YELLOW Urine Appearance CLEAR (CLEAR) Urine pH 5.0 (4.5-7.5) Urine Specific [place] 1.040 (1.000-1.030) Urine Protein 2+ (NEG) Urine Glucose (UA) 3+ (NEG) Urine Ketones NEG (NEG) Urine Occult Blood TRACE (NEG) Urine Nitrite NEG (NEG) Urine Bilirubin NEG (NEG) Urine Urobilinogen NEG (NEG) Urine Leukocyte Esterase NEG (NEG) Urine WBC (Auto) 0 /hpf (0-5) Urine RBC (Auto) 0-4 /hpf (0-4) Urine Hyaline Casts (Auto) 0 /lpf (0-5) Urine Epithelial Cells (Auto) 0-5 /lpf (0-5) Urine Bacteria (Auto) NEG (NEG) Bedside Glucose 148 mg/dl (70-99) Laboratory results reviewed by me. Medications Administered Medications (Trade) Dose Ordered Sig/Madai Route Start Time Stop Time Status Last Admin Dose Admin Ondansetron HCl (Zofran Inj) 4 mg NOW STAT IV 11/08/17 20:01 11/08/17 20:04 DC 11/08/17 20:38 4 MG Sodium Chloride 1,000 ml @ 999 mls/hr Q1H1M STAT IV 11/08/17 20:01 11/08/17 21:06 DC 11/08/17 20:38 999 MLS/HR Insulin Human Regular (novoLIN-R U-100 PER UNIT) 8 units NOW STAT IV 11/08/17 20:01 11/08/17 20:04 DC 11/08/17 20:41 8 UNITS Sodium Chloride 1,000 ml @ 999 mls/hr Q1H1M STAT IV 11/08/17 21:48 11/08/17 22:48 DC 11/08/17 21:50 999 MLS/HR Senna/Docusate Sodium (Senokot S Tab) 2 tab NOW ONCE PO 11/08/17 22:30 11/08/17 22:31 DC 11/08/17 22:37 2 TAB ECG Per My Interpretation Indication: other (hyperglycemia) Rate (beats per minute): 89 Rhythm: normal sinus Findings: no ectopy (No PVC), other (No ST elevation) ED Course 1954: The patient was evaluated in room B5. A complete history and physical exam was performed. 2000: Ordered Insulin Human Regular 8 units IV, Sodium Chloride 1,000 ml @ 999 mls/hr IV, and Zofran 4 mg IV 2147: Ordered Sodium Chloride 1,000 ml @ 999 mls/hr IV 2148: I reassessed the patient at this time. He is feeling better. His blood sugar is 148. I discussed the results and treatment plan with the patient. I answered all pertaining questions that he had. He expressed understanding and verbalized agreement. The patient will be discharged home. 2218: I spoke with Lidia, the medical technicians caring for this patient all day long. She is comfortable with continuing to care for the patient. 2229: Ordered Senokot 2 tab PO Medical Decision The patient is a 31 year old male who presents to the ED with complaints of hyperglycemia. Differential diagnoses considered include DKA, dehydration, hyperglycemia, UTI, PNA, viral illness, and electrolyte abnormality. There is a mild leukocytosis, this could be consistent with infection or just the higher sugar value and vomiting. No concerning anemia. No kidney failure. Sugar was elevated at over 300 initially. There were a few mild liver enzyme elevations but these have been documented in the past. Urinalysis did not show evidence for infection. Obstruction series did not show bowel obstruction, however, constipation was seen. There was no pneumonia or free air. The patient received IV saline, he was given 2 L IV. He was given IV insulin and IV Zofran. He feels markedly better and is now tolerating oral intake. Repeat blood sugar is now about 140. The patient is not in DKA, I do think he can be discharged back to the intermediate, I did talk with the medical attending regional service manager. The patient was given 2 Senokot tab orally prior to discharge to help with the constipation. He was encouraged to return here if worsening. Medication Reconcilliation Current Medication List: was personally reviewed by me Blood Pressure Screening Patient's blood pressure: Normal blood pressure Impression Primary Impression: Hyperglycemia Additional Impressions: Dehydration Constipation Scribe Attestation The scribe's documentation has been prepared under my direction and personally reviewed by me in its entirety. I confirm that the note above accurately reflects all work, treatment, procedures, and medical decision making performed by me. Departure Information Dispostion Home / Self-Care Prescriptions Sennosides-Docusate Sodium (SENOKOT S) 1 Tab Tab 2 TAB PO TID Y for Constipation, #25 TAB Prov: Mulugeta Joseph M.D. 11/08/17 Referrals Praveena RUIZ (PCP) Forms HOME CARE DOCUMENTATION FORM, IMPORTANT VISIT INFORMATION, WORK / SCHOOL INSTRUCTIONS Patient Instructions My [facility] Additional Instructions use sennokot, 2 tablets 3 times per day to help constipation and bowel movements keep a watch on the blood sugars stay well hydrated return for worsening symptoms or if not improving Problem Qualifiers
[2017-11-08 20:45] LABS: BASO % 0.1 %; BASO ABS # 0.01 K/uL (0-0.2); EOS % 1.5 %; EOS ABS # 0.17 K/uL (0-0.5); HEMATOCRIT 34.8 % (42-52); HEMOGLOBIN 12.6 g/dL (14.0-18.0); IG# 0.03 K/uL (0.00-0.02); LYMPH % 27.6 %; LYMPH ABS # 3.09 K/uL (1.2-3.4); MEAN CELL VOLUME 84.5 fL (80-100); MEAN CORPUSCULAR HEMOGLOBIN 30.6 pg (25-34); MEAN CORPUSCULAR HGB CONC 36.2 g/dl (32-36); MEAN PLATELET VOLUME 10.1 fL (7.4-10.4); MONO % 5.9 %; MONO ABS # 0.66 K/uL (0.11-0.59); NEUT % 64.6 %; NEUT ABS # 7.22 K/uL (1.4-6.5); PLATELET COUNT 199 K/uL (130-400); RED CELL DISTRIBUTION WIDTH CV 12.4 % (11.5-14.5); RED CELL DISTRIBUTION WIDTH SD 38.4 fL (36.4-46.3); WHITE BLOOD COUNT 11.18 K/uL (4.8-10.8)
[2017-11-08 21:06] LABS: ALBUMIN 3.5 gm/dl (3.4-5.0); CALCIUM 8.6 mg/dl (8.5-10.1); CREATININE 1.26 mg/dl (0.60-1.40); POTASSIUM 3.9 mmol/L (3.5-5.1)
[2017-11-08 21:09] LABS: TOTAL PROTEIN 6.8 gm/dl (6.4-8.2)
--- NOTE | 2017-11-08 21:33 | DIAGNOSTIC IMAGING REPORT ---
PA CHEST WITH ABDOMINAL SERIES CLINICAL HISTORY: Vomiting. Generalized abdominal pain. FINDINGS: A PA chest radiograph is compared to study dated 04/25/2017. The cardiomediastinal silhouette is unremarkable. The lungs and pleural spaces are clear. No pneumothorax is seen. The bony thorax is grossly intact. Supine and erect abdominal radiographs are correlated with abdominal CT dated 06/03/2017. There is a nonobstructed abdominal bowel gas pattern. There is moderate to severe constipation. No evidence of intraperitoneal free air is seen. There are no abnormal abdominal calcifications. The lumbosacral spine and bony pelvis appear intact. IMPRESSION: 1. No active disease in the chest. 2. Nonobstructed abdominal bowel gas pattern noting moderate to severe constipation. Electronically signed by: Mulugeta Gonzalez M.D. 11/08/2017 9:32 PM Dictated Date/Time: 11/08/2017 9:30 PM
[2017-11-08] MEDS ORDERED: SENN-65 PO (22:16)
[2017-11-08] MEDS ORDERED: DOCUSATE SODIUM/SENNA 50/8.6MG TAB PO ONE (22:30)
[2017-11-08 22:36] VITALS: BP 127/78; PULSE 82; O2SAT 98
== END 2017-11-08 22:45 | disposition home or self-care (01) ==
LOC: C.EDB 19:49
DX: E11.65 Type 2 diabetes mellitus with hyperglycemia (principal); E86.0 Dehydration; K59.00 Constipation, unspecified; E78.5 Hyperlipidemia, unspecified; I10 Essential (primary) hypertension; Z83.3 Family history of diabetes mellitus; Z87.891 Personal history of nicotine dependence; Z79.4 Long term (current) use of insulin; Z79.899 Other long term (current) drug therapy